=== PATIENT | male | born 1995 | race Caucasian/White ===

== ENCOUNTER 2016-05-25 18:58 | Emergency (ER) | payer SELFPAY ==
[2016-05-25] MEDS ORDERED: SODIUM CHLORIDE 0.9% 1,000 ML IV ONE (19:26)
[2016-05-25] MEDS ORDERED: ACETAMINOPHEN TAB 500 MG TAB PO STA (19:29)
--- NOTE | 2016-05-25 19:29 | ED ---
Nausea/Vomiting/Diarrhea HPI - General Chief complaint: Nausea/Vomiting/Diarrhea Stated complaint: NAUSEA, VOMITING, HEARING LOSS IN RT EAR Time Seen by Provider: 05/25/16 19:17 Source: patient, RN notes reviewed Mode of arrival: ambulatory Limitations: no limitations - History of Present Illness Initial comments: Patient is 21 year old male with complaint of 5 days of feeling ill and weak. Patient reports that he was seen by a doctor on Thursday and was prescribed Tamiflu for his symptoms. Patient reports that since taking the Tamiflu he's feeling felt worse. Patient states that he's had fever and chills as well as one episode of vomiting earlier today. He reports that he has significant sinus congestion and developed a cough. The cough is nonproductive. He denies any other associated symptoms including diarrhea or abdominal pain. He reports that his 2-year-old daughter is coming down with similar symptoms. Also reports decreased hearing in the right ear. Patient denies any recent shortness of breath, chest pain, back pain, abdominal pain, nausea vomiting, numbness or tingling, dysuria or hematuria, constipation or diarrhea, headaches or visual changes, or any other current symptoms - Related Data Home Medications Medication Instructions Recorded Confirmed Oseltamivir [Tamiflu] 75 mg PO Q12HR 05/25/16 05/25/16 Previous Rx's Medication Instructions Recorded Azithromycin [Zithromax Z-pack] 250 mg PO DIRECTED #6 tab 05/25/16 Allergies Allergy/AdvReac Type Severity Reaction Status Date / Time bee pollen Allergy Unknown Verified 05/25/16 19:22 fluoxetine Allergy Swelling Verified 05/25/16 19:22 lamotrigine [From Lamictal] Allergy Swelling Verified 05/25/16 19:22 Review of Systems ROS Statement: Those systems with pertinent positive or pertinent negative responses have been documented in the HPI. ROS Other: All systems not noted in ROS Statement are negative. Past Medical History Past Medical History: Asthma Additional Past Medical History / Comment(s): "heart palpatations" the patient states he has a history of numerous episodes of otitis media in the past History of Any Multi-Drug Resistant Organisms: None Reported Past Surgical History: No Surgical Hx Reported Additional Past Surgical History / Comment(s): "tubes in ears" Past Psychological History: Bipolar, Depression Smoking Status: Current every day smoker Past Alcohol Use History: Occasional Past Drug Use History: None Reported General Exam - General Exam Comments Initial Comments: Patient is a 21-year-old male. He does not appear to be in any acute distress. Limitations: no limitations General appearance: alert, in no apparent distress Head exam: Present: atraumatic, normocephalic, normal inspection Eye exam: Present: normal appearance, PERRL, EOMI. Absent: scleral icterus, conjunctival injection, periorbital swelling ENT exam: Present: normal exam, normal oropharynx, mucous membranes moist. Absent: TM's normal bilaterally (Slightly erythematous right TM) Neck exam: Present: normal inspection. Absent: tenderness, meningismus, lymphadenopathy Respiratory exam: Present: normal lung sounds bilaterally, other (Productive cough). Absent: respiratory distress, wheezes, rales, rhonchi, stridor Cardiovascular Exam: Present: regular rate, normal rhythm, normal heart sounds. Absent: systolic murmur, diastolic murmur, rubs, gallop, clicks GI/Abdominal exam: Present: soft, normal bowel sounds. Absent: distended, tenderness, guarding, rebound, rigid Extremities exam: Present: normal inspection, full ROM, normal capillary refill. Absent: tenderness, pedal edema, joint swelling, calf tenderness Back exam: Present: normal inspection Neurological exam: Present: alert, oriented X3, CN II-XII intact Psychiatric exam: Present: normal affect Skin exam: Present: warm, dry, intact, normal color. Absent: rash Course Vital Signs 05/25/16 05/25/16 19:13 21:10 Temperature 99 F 98 F Pulse Rate 96 70 Respiratory 20 16 Rate Blood Pressure 153/89 120/74 O2 Sat by Pulse 100 100 Oximetry Medical Decision Making - Medical Decision Making Patient is a 21-year-old male chief complaint of one week of feeling weak. He is on Tamiflu for the past 2 days. Since then he is feeling his symptoms progress or worsen. He states he has a productive cough, decreased hearing in the right ear. Patient was given CBC and BMP and both are negative for any acute process. Patient was given 1 L of fluids and Tylenol. Influenza screen is negative. Patient will be discharged with azithromycin instructed to discontinue the Tamiflu as this this was a viral illness this unable to be treated at this far out from the beginning of his illness. Patient will be given a note for work. Patient understands treatment plan will comply. Return parameters were discussed. - Lab Data Result diagrams: 05/25/16 19:40 05/25/16 19:40 Lab Results 05/25/16 05/25/16 05/25/16 Range/Units 19:40 19:40 19:40 WBC 4.9 (3.8-10.6) k/uL RBC 4.80 (4.30-5.90) m/uL Hgb 14.2 (13.0-17.5) gm/dL Hct 42.8 (39.0-53.0) % MCV 89.3 (80.0-100.0) fL MCH 29.6 (25.0-35.0) pg MCHC 33.2 (31.0-37.0) g/dL RDW 12.6 (11.5-15.5) % Plt Count 147 L (150-450) k/uL Neutrophils % 54 % Lymphocytes % 26 % Monocytes % 10 % Eosinophils % 6 % Basophils % 1 % Neutrophils # 2.7 (1.3-7.7) k/uL Lymphocytes # 1.3 (1.0-4.8) k/uL Monocytes # 0.5 (0-1.0) k/uL Eosinophils # 0.3 (0-0.7) k/uL Basophils # 0.0 (0-0.2) k/uL Sodium 141 (137-145) mmol/L Potassium 4.4 (3.5-5.1) mmol/L Chloride 107 (98-107) mmol/L Carbon Dioxide 24 (22-30) mmol/L Anion Gap 10 mmol/L BUN 16 (9-20) mg/dL Creatinine 0.70 (0.66-1.25) mg/dL Est GFR (MDRD) Af Amer >60 (>60 ml/min/1.73 sqM) Est GFR (MDRD) Non-Af >60 (>60 ml/min/1.73 sqM) Glucose 101 H (74-99) mg/dL Calcium 8.8 (8.4-10.2) mg/dL Influenza Type A RNA Not Detected (Not Detectd) Influenza Type B (PCR) Not Detected (Not Detectd) Group A Strep Rapid (Negative) 05/25/16 Range/Units 19:40 WBC (3.8-10.6) k/uL RBC (4.30-5.90) m/uL Hgb (13.0-17.5) gm/dL Hct (39.0-53.0) % MCV (80.0-100.0) fL MCH (25.0-35.0) pg MCHC (31.0-37.0) g/dL RDW (11.5-15.5) % Plt Count (150-450) k/uL Neutrophils % % Lymphocytes % % Monocytes % % Eosinophils % % Basophils % % Neutrophils # (1.3-7.7) k/uL Lymphocytes # (1.0-4.8) k/uL Monocytes # (0-1.0) k/uL Eosinophils # (0-0.7) k/uL Basophils # (0-0.2) k/uL Sodium (137-145) mmol/L Potassium (3.5-5.1) mmol/L Chloride (98-107) mmol/L Carbon Dioxide (22-30) mmol/L Anion Gap mmol/L BUN (9-20) mg/dL Creatinine (0.66-1.25) mg/dL Est GFR (MDRD) Af Amer (>60 ml/min/1.73 sqM) Est GFR (MDRD) Non-Af (>60 ml/min/1.73 sqM) Glucose (74-99) mg/dL Calcium (8.4-10.2) mg/dL Influenza Type A RNA (Not Detectd) Influenza Type B (PCR) (Not Detectd) Group A Strep Rapid Negative (Negative) - Radiology Data Radiology results: report reviewed Chest x-ray shows some central peribronchial cuffing could represent bronchitis or chronic asthma. Disposition Clinical Impression: Bronchitis, Upper respiratory infection Disposition: HOME SELF-CARE Condition: Good Instructions: Acute Bronchitis (ED), Upper Respiratory Infection (ED) Additional Instructions: Advised to rest, remain hydrated and to complete antibiotic prescription. Discontinue Tamiflu. Return to the [facility] if any alarming signs or symptoms occur. Follow-up with primary care provider. Prescriptions: Azithromycin [Zithromax Z-pack] 250 mg PO DIRECTED #6 tab Referrals: None,Stated [Primary Care Provider] - 1-2 days Yumi Sharma MD [REFERRING] - 1-2 days Time of Disposition: 20:31
[2016-05-25 20:01] LABS: Basophils % (A) 1 %; CH 29.6; CHCM 33.2; Eosinophils # (A) 0.3 k/uL (0-0.7); Eosinophils % (A) 6 %; HCT 42.8 % (39.0-53.0); HDW 2.55; HGB 14.2 gm/dL (13.0-17.5); Luc # (Auto) 0.19; Luc % (Auto) 4; Lymphocytes # (A) 1.3 k/uL (1.0-4.8); Lymphocytes % (A) 26 %; MCH 29.6 pg (25.0-35.0); MCHC 33.2 g/dL (31.0-37.0); MCV 89.3 fL (80.0-100.0); Mean Platelet Volume 7.3; Monocytes # (A) 0.5 k/uL (0-1.0); Monocytes % (A) 10 %; Neutrophils # (A) 2.7 k/uL (1.3-7.7); Neutrophils % (A) 54 %; RDW 12.6 % (11.5-15.5); WBC 4.9 k/uL (3.8-10.6); WBC (Perox) 4.93
[2016-05-25 20:13] LABS: Anion Gap 10 mmol/L; Blood Urea Nitrogen 16 mg/dL (9-20); Calcium 8.8 mg/dL (8.4-10.2); Carbon Dioxide 24 mmol/L (22-30); Chloride 107 mmol/L (98-107); Glucose 101 mg/dL (74-99); Non-African American GFR(MDRD) >60 (>60 ml/min/1.73 sqM); Sodium 141 mmol/L (137-145)
--- NOTE | 2016-05-25 20:18 | XR ---
EXAMINATION TYPE: XR chest 2V DATE OF EXAM: 05/25/2016 8:08 PM COMPARISON: 08/05/2015 HISTORY: 21-year-old male with pain, congestion, nausea, and vomiting TECHNIQUE: PA and lateral views FINDINGS: The cardiomediastinal silhouette, aorta, and pulmonary vasculature are within normal limits. There is some central peribronchial cuffing noted. Otherwise, lungs and pleural spaces are clear. IMPRESSION: Some central peribronchial cuffing could represent bronchitis or chronic asthma.
[2016-05-25 20:22] LABS: Potassium 4.4 mmol/L (3.5-5.1)
[2016-05-25] MEDS ORDERED: methylPREDNISolone SOD SUCCI 125 MG/2 ML VIAL IV STA (20:31)
[2016-05-25 21:11] VITALS: BP 120/74; PULSE 70; RESP 16; TEMP 98
== END 2016-05-25 21:10 | disposition home or self-care (01) ==
LOC: EC 18:58
DX: J40 Bronchitis, not specified as acute or chronic (principal); J06.9 Acute upper respiratory infection, unspecified; Z88.8 Allergy status to other drugs, medicaments and biological substances; Z91.030 Bee allergy status; F17.200 Nicotine dependence, unspecified, uncomplicated
CPT/HCPCS: 36415; 80048; 85025; 87081; 87430; 87502; 71020; 96374; 96361; 99284; J2930

== ENCOUNTER 2017-08-21 21:34 | Emergency (ER) | payer SELFPAY ==
[2017-08-21] MEDS ORDERED: MORPHINE SULFATE 4 MG/ML SYRINGE IM STA (22:36)
--- NOTE | 2017-08-21 22:45 | ED ---
General Adult HPI - General Chief complaint: Recheck/Abnormal Lab/Rx Stated complaint: Headache, sore throat Time Seen by Provider: 08/21/17 21:56 Source: patient, RN notes reviewed Mode of arrival: ambulatory Limitations: no limitations - History of Present Illness Initial comments: Chief complaint history of present illness a 22-year-old male here with complaint of dental pain. The patient was to the dentist today. They said they wouldn't deal with him until after the patient's been on antibiotic. He went to an urgent care head antibiotics prescribedand Augmentin. Patient reports she has pain to the left upper jaw and the fifth 1415-16 tooth area. No signs of abscess along the gumline. All these teeth have previously been filled. Patient was placed on ibuprofen which is not helping with the pain. - Related Data Home Medications Medication Instructions Recorded Confirmed Amoxicillin/Potassium Clav 1 tab PO TID 08/21/17 08/21/17 [Augmentin 500-125 Tablet] Fluticasone Nasal [place] [Flonase 1 spray EA NOSTRIL DAILY PRN 08/21/17 08/21/17 Nasal [place]] Guaifen/Phenyleph/Acetaminophn 1 tab PO Q8H PRN 08/21/17 08/21/17 [Tylenol Sinus Severe [place]] Ibuprofen [Motrin] 800 mg PO Q8H PRN 08/21/17 08/21/17 Previous Rx's Medication Instructions Recorded Hydrocodone/Acetaminophen [[place] 1 each PO Q6HR PRN #10 tab 08/21/17 5-325] Allergies Allergy/AdvReac Type Severity Reaction Status Date / Time bee pollen Allergy Unknown Verified 08/21/17 21:53 fluoxetine Allergy Swelling Verified 08/21/17 21:53 lamotrigine [From Lamictal] Allergy Swelling Verified 08/21/17 21:53 Review of Systems ROS Statement: Those systems with pertinent positive or pertinent negative responses have been documented in the HPI. Review of systems no other complaints other than dental pain going up into the left maxillary region. Also left ear pain. No headache no stiff neck. No fever. No chest pain shortness of breath no other complaints. Past medical problems asthma, heart palpitations. Surgeries include ear tubes only. Family history leukemia. ALLERGIES to bee pollen, fluoxetine and Motrin seen. ROS Other: All systems not noted in ROS Statement are negative. Past Medical History Past Medical History: Asthma Additional Past Medical History / Comment(s): "heart palpatations" the patient states he has a history of numerous episodes of otitis media in the past History of Any Multi-Drug Resistant Organisms: None Reported Past Surgical History: No Surgical Hx Reported Additional Past Surgical History / Comment(s): "tubes in ears" Past Psychological History: Bipolar, Depression Smoking Status: Current every day smoker Past Alcohol Use History: Occasional Past Drug Use History: None Reported General Exam - General Exam Comments Initial Comments: General: The patient is awake and alert, mild to moderate distress because of pain to his left posterior jaw area. Vital signs temperature 98.1 pulse 11 respiratory rate 18 pulse ox on percent room air blood pressure 144/85 Eye: Pupils are equal, round and reactive to light, extra-ocular movements are intact ; there is normal conjunctiva bilaterally. No signs of icterus. Ears, nose, mouth and throat: There are moist mucous membranes and no oral lesions. Patient has dental pain to the teeth numbers 1415 and 16 area. No abscess noted along the gingival line. Neck: The neck is supple, no anterior cervical lymphadenopathy. Cardiovascular: There is a regular rate and rhythm. No murmur, rub or gallop is appreciated. Respiratory: Lungs are clear to auscultation, respirations are non-labored, breath sounds are equal. No wheezes, stridor, rales, or rhonchi. Gastrointestinal: Soft, non-distended, non-tender abdomen without masses or organomegaly noted. There is no rebound or guarding present. No CVA tenderness. Bowel sounds are unremarkable. Back: No back pain Musculoskeletal: Full range of upper and lower extremities. Limitations: no limitations Course Vital Signs 08/21/17 21:43 Temperature 98.1 F Pulse Rate 101 H Respiratory 18 Rate Blood Pressure 144/85 O2 Sat by Pulse 100 Oximetry Medical Decision Making - Medical Decision Making Medical decision making; 21-year-old male to complaint of dental pain. He was placed on Augmentin for treatment but is not to be elicited dentist until the antibiotics taken hold. Patient was prescribed only ibuprofen but he states this is not controlling the pain. On emergency room patient received a shot of morphine 2 mg IM. To be given a prescription of [place] to be taken for the first several days until the antibiotics help decrease inflammation. Advised to call and follow back up with dentist. Disposition Clinical Impression: Pain, dental Disposition: HOME SELF-CARE Condition: Fair Instructions: Toothache (ED) Additional Instructions: Apply topical anesthetic, [id number] as described in directed. Take Augmentin as directed and completed. Use [place] for the management for breakthrough after using ibuprofen. Follow-up with dentist Prescriptions: Hydrocodone/Acetaminophen [[place] 5-325] 1 each PO Q6HR PRN #10 tab PRN Reason: Pain Is patient prescribed a controlled substance at d/c from ED?: Yes If prescribed controlled substance>3 days was MAPS reviewed?: No When asked, does pt state using other controlled substances?: No Referrals: None,Stated [Primary Care Provider] - 1-2 days Time of Disposition: 22:45
[2017-08-21 22:53] VITALS: BP 133/75; PULSE 85; RESP 16; TEMP 98.2
== END 2017-08-21 22:58 | disposition home or self-care (01) ==
LOC: EC 21:34
DX: K08.89 Other specified disorders of teeth and supporting structures (principal); R51 Headache; R68.84 Jaw pain; F17.200 Nicotine dependence, unspecified, uncomplicated; Z91.030 Bee allergy status; Z88.8 Allergy status to other drugs, medicaments and biological substances
CPT/HCPCS: 99283; 96372; J2270

== ENCOUNTER 2017-08-24 10:09 | Emergency (ER) | payer OTHER ==
[2017-08-24 10:19] VITALS: RESP 18
[2017-08-24] MEDS ORDERED: SODIUM CHLORIDE 0.9% 1,000 ML IV STA (10:47)
[2017-08-24 11:11] LABS: Appearance,Urine Clear (Clear); Bilirubin,Urine Negative (Negative); Blood,Urine Negative (Negative); Color,Urine Light Yellow; Glucose,Urine (UA) Negative (Negative); Ketones,Urine Negative (Negative); Leukocyte Esterase,Urine Negative (Negative); Nitrite,Urine Negative (Negative); Protein,Urine Negative (Negative); Specific Gravity,Urine 1.004 (1.001-1.035); Urobilinogen,Urine <2.0 mg/dL (<2.0)
[2017-08-24 11:13] LABS: Basophils % (A) 0 %; Eosinophils # (A) 0.3 k/uL (0-0.7); Eosinophils % (A) 6 %; HCT 47.2 % (39.0-53.0); HGB 16.2 gm/dL (13.0-17.5); Lymphocytes # (A) 1.5 k/uL (1.0-4.8); Lymphocytes % (A) 28 %; MCH 28.8 pg (25.0-35.0); MCHC 34.4 g/dL (31.0-37.0); MCV 83.7 fL (80.0-100.0); Monocytes # (A) 0.3 k/uL (0-1.0); Monocytes % (A) 6 %; Neutrophils % (A) 58 %; Platelet Count 247 k/uL (150-450); RBC 5.64 m/uL (4.30-5.90); RDW 12.3 % (11.5-15.5); WBC 5.2 k/uL (3.8-10.6)
[2017-08-24 11:24] LABS: ALT 28 U/L (21-72); AST 24 U/L (17-59); Acetaminophen <10.0 ug/mL; Albumin 5.1 g/dL (3.5-5.0); Alcohol <10 mg/dL; Alkaline Phosphatase 82 U/L (38-126); Anion Gap 15 mmol/L; Blood Urea Nitrogen 11 mg/dL (9-20); Calcium 9.9 mg/dL (8.4-10.2); Carbon Dioxide 30 mmol/L (22-30); Chloride 100 mmol/L (98-107); Glucose 84 mg/dL (74-99); Lipase 225 U/L (23-300); Magnesium 1.8 mg/dL (1.6-2.3); Phosphorus 3.1 mg/dL (2.5-4.5); Salicylate <1.0 mg/dL; Sodium 145 mmol/L (137-145); Total Bilirubin 0.6 mg/dL (0.2-1.3); Total Protein 7.7 g/dL (6.3-8.2)
[2017-08-24 11:28] LABS: Amphetamine Screen,Urine Not Detected (NotDetected); Barbiturate Screen,Urine Not Detected (NotDetected); Benzodiazepines Screen,Urine Not Detected (NotDetected); Cocaine Screen,Urine Not Detected (NotDetected); Methadone Screen, Urine Not Detected (NotDetected); Opiate Screen,Urine Detected (NotDetected); Oxycodone Screen, Urine Not Detected (NotDetected); Phencyclidine Screen,Urine Not Detected (NotDetected); Tricyclic Antidepressant,Urine Not Detected (NotDetected); Urn Cannabinoid Scrn Not Detected (NotDetected)
--- NOTE | 2017-08-24 11:38 | ED ---
General Adult HPI - General Chief complaint: Recheck/Abnormal Lab/Rx Stated complaint: Weakness Time Seen by Provider: 08/24/17 10:29 Source: patient, RN notes reviewed, old records reviewed Mode of arrival: ambulatory Limitations: no limitations - History of Present Illness Initial comments: This is a 22-year-old male to the ER for evaluation. This patient is here today for evaluation regards to not feeling well weak lethargic. Recent been doing with dental abscess and tooth abscess. Patient has no significant medical history, does admit to 3 days of decreased appetite and anorexia, no nausea vomiting diarrhea or fevers. He is taking [place] and Augmentin for tooth infection. Denies taking any other drugs or alcohol - Related Data Home Medications Medication Instructions Recorded Confirmed Amoxicillin/Potassium Clav 1 tab PO TID 08/21/17 08/24/17 [Augmentin 500-125 Tablet] Hydrocodone/Acetaminophen [[place] 1 tab PO TID PRN 08/24/17 08/24/17 5-325] Allergies Allergy/AdvReac Type Severity Reaction Status Date / Time bee pollen Allergy Unknown Verified 08/24/17 10:25 fluoxetine Allergy Swelling Verified 08/24/17 10:25 lamotrigine [From Lamictal] Allergy Swelling Verified 08/24/17 10:25 latex Allergy Unknown Verified 08/24/17 10:25 Review of Systems ROS Statement: Those systems with pertinent positive or pertinent negative responses have been documented in the HPI. ROS Other: All systems not noted in ROS Statement are negative. Past Medical History Past Medical History: Asthma Additional Past Medical History / Comment(s): "heart palpatations" the patient states he has a history of numerous episodes of otitis media in the past History of Any Multi-Drug Resistant Organisms: None Reported Past Surgical History: No Surgical Hx Reported Additional Past Surgical History / Comment(s): "tubes in ears" Past Psychological History: Bipolar, Depression Smoking Status: Current every day smoker Past Alcohol Use History: Occasional Past Drug Use History: None Reported General Exam Limitations: no limitations General appearance: alert, in no apparent distress, cachectic Head exam: Present: atraumatic, normocephalic, normal inspection Eye exam: Present: normal appearance, PERRL, EOMI. Absent: scleral icterus, conjunctival injection, periorbital swelling ENT exam: Present: normal exam, mucous membranes moist Neck exam: Present: normal inspection. Absent: tenderness, meningismus, lymphadenopathy Respiratory exam: Present: normal lung sounds bilaterally. Absent: respiratory distress, wheezes, rales, rhonchi, stridor Cardiovascular Exam: Present: regular rate, normal rhythm, normal heart sounds. Absent: systolic murmur, diastolic murmur, rubs, gallop, clicks GI/Abdominal exam: Present: soft, normal bowel sounds. Absent: distended, tenderness, guarding, rebound, rigid Extremities exam: Present: normal inspection, full ROM, normal capillary refill. Absent: tenderness, pedal edema, joint swelling, calf tenderness Back exam: Present: normal inspection Neurological exam: Present: alert, oriented X3, CN II-XII intact Psychiatric exam: Present: normal affect, normal mood Skin exam: Present: warm, dry, intact, normal color. Absent: rash Course Vital Signs 08/24/17 08/24/17 10:16 12:06 Temperature 98.2 F 98.6 F Pulse Rate 74 82 Respiratory 18 18 Rate Blood Pressure 136/98 120/73 O2 Sat by Pulse 98 100 Oximetry EKG Findings - EKG Comments: EKG Findings:: EKG shows normal sinus rhythm rate of 67, TN 154, QRS 106, QTc 414 Medical Decision Making - Medical Decision Making 19 female the ER for evaluation, patient presenting with fatigue, tiredness, anhedonia. Patient will be taken off [place] medication is currently taking. Discharged - Lab Data Result diagrams: 08/24/17 11:05 08/24/17 11:05 Lab Results 08/24/17 08/24/17 08/24/17 Range/Units 11:05 11:05 11:05 WBC 5.2 (3.8-10.6) k/uL RBC 5.64 (4.30-5.90) m/uL Hgb 16.2 (13.0-17.5) gm/dL Hct 47.2 (39.0-53.0) % MCV 83.7 (80.0-100.0) fL MCH 28.8 (25.0-35.0) pg MCHC 34.4 (31.0-37.0) g/dL RDW 12.3 (11.5-15.5) % Plt Count 247 (150-450) k/uL Neutrophils % 58 % Lymphocytes % 28 % Monocytes % 6 % Eosinophils % 6 % Basophils % 0 % Neutrophils # 3.0 (1.3-7.7) k/uL Lymphocytes # 1.5 (1.0-4.8) k/uL Monocytes # 0.3 (0-1.0) k/uL Eosinophils # 0.3 (0-0.7) k/uL Basophils # 0.0 (0-0.2) k/uL PT (9.0-12.0) sec INR (<1.2) APTT (22.0-30.0) sec Sodium 145 (137-145) mmol/L Potassium 4.0 (3.5-5.1) mmol/L Chloride 100 (98-107) mmol/L Carbon Dioxide 30 (22-30) mmol/L Anion Gap 15 mmol/L BUN 11 (9-20) mg/dL Creatinine 0.68 (0.66-1.25) mg/dL Est GFR (CKD-EPI)AfAm >90 (>60 ml/min/1.73 sqM) Est GFR (CKD-EPI)NonAf >90 (>60 ml/min/1.73 sqM) Glucose 84 (74-99) mg/dL Calcium 9.9 (8.4-10.2) mg/dL Phosphorus 3.1 (2.5-4.5) mg/dL Magnesium 1.8 (1.6-2.3) mg/dL Total Bilirubin 0.6 (0.2-1.3) mg/dL AST 24 (17-59) U/L ALT 28 (21-72) U/L Alkaline Phosphatase 82 (38-126) U/L Total Creatine Kinase 71 (55-170) U/L CK-MB (CK-2) 0.5 (0.0-2.4) ng/mL CK-MB (CK-2) Rel Index 0.7 Troponin I <0.012 (0.000-0.034) ng/mL Total Protein 7.7 (6.3-8.2) g/dL Albumin 5.1 H (3.5-5.0) g/dL Lipase 225 (23-300) U/L TSH 1.450 (0.465-4.680) mIU/L Urine Color Urine Appearance (Clear) Urine pH (5.0-8.0) Ur Specific [place] (1.001-1.035) Urine Protein (Negative) Urine Glucose (UA) (Negative) Urine Ketones (Negative) Urine Blood (Negative) Urine Nitrite (Negative) Urine Bilirubin (Negative) Urine Urobilinogen (<2.0) mg/dL Ur Leukocyte Esterase (Negative) Salicylates <1.0 mg/dL Urine Opiates Screen (NotDetected) Ur Oxycodone Screen (NotDetected) Urine Methadone Screen (NotDetected) Ur Propoxyphene Screen (NotDetected) Acetaminophen <10.0 ug/mL Ur Barbiturates Screen (NotDetected) U Tricyclic Antidepress (NotDetected) Ur Phencyclidine Scrn (NotDetected) Ur Amphetamines Screen (NotDetected) U Methamphetamines Scrn (NotDetected) U Benzodiazepines Scrn (NotDetected) Urine Cocaine Screen (NotDetected) U Marijuana (THC) Screen (NotDetected) Serum Alcohol <10 mg/dL Heterophile Antibody (Negative) 08/24/17 08/24/17 08/24/17 Range/Units 11:05 11:05 11:05 WBC (3.8-10.6) k/uL RBC (4.30-5.90) m/uL Hgb (13.0-17.5) gm/dL Hct (39.0-53.0) % MCV (80.0-100.0) fL MCH (25.0-35.0) pg MCHC (31.0-37.0) g/dL RDW (11.5-15.5) % Plt Count (150-450) k/uL Neutrophils % % Lymphocytes % % Monocytes % % Eosinophils % % Basophils % % Neutrophils # (1.3-7.7) k/uL Lymphocytes # (1.0-4.8) k/uL Monocytes # (0-1.0) k/uL Eosinophils # (0-0.7) k/uL Basophils # (0-0.2) k/uL PT 10.0 (9.0-12.0) sec INR 1.0 (<1.2) APTT 25.5 (22.0-30.0) sec Sodium (137-145) mmol/L Potassium (3.5-5.1) mmol/L Chloride (98-107) mmol/L Carbon Dioxide (22-30) mmol/L Anion Gap mmol/L BUN (9-20) mg/dL Creatinine (0.66-1.25) mg/dL Est GFR (CKD-EPI)AfAm (>60 ml/min/1.73 sqM) Est GFR (CKD-EPI)NonAf (>60 ml/min/1.73 sqM) Glucose (74-99) mg/dL Calcium (8.4-10.2) mg/dL Phosphorus (2.5-4.5) mg/dL Magnesium (1.6-2.3) mg/dL Total Bilirubin (0.2-1.3) mg/dL AST (17-59) U/L ALT (21-72) U/L Alkaline Phosphatase (38-126) U/L Total Creatine Kinase (55-170) U/L CK-MB (CK-2) (0.0-2.4) ng/mL CK-MB (CK-2) Rel Index Troponin I (0.000-0.034) ng/mL Total Protein (6.3-8.2) g/dL Albumin (3.5-5.0) g/dL Lipase (23-300) U/L TSH (0.465-4.680) mIU/L Urine Color Light Yellow Urine Appearance Clear (Clear) Urine pH 7.0 (5.0-8.0) Ur Specific [place] 1.004 (1.001-1.035) Urine Protein Negative (Negative) Urine Glucose (UA) Negative (Negative) Urine Ketones Negative (Negative) Urine Blood Negative (Negative) Urine Nitrite Negative (Negative) Urine Bilirubin Negative (Negative) Urine Urobilinogen <2.0 (<2.0) mg/dL Ur Leukocyte Esterase Negative (Negative) Salicylates mg/dL Urine Opiates Screen Detected H (NotDetected) Ur Oxycodone Screen Not Detected (NotDetected) Urine Methadone Screen Not Detected (NotDetected) Ur Propoxyphene Screen Not Detected (NotDetected) Acetaminophen ug/mL Ur Barbiturates Screen Not Detected (NotDetected) U Tricyclic Antidepress Not Detected (NotDetected) Ur Phencyclidine Scrn Not Detected (NotDetected) Ur Amphetamines Screen Not Detected (NotDetected) U Methamphetamines Scrn Not Detected (NotDetected) U Benzodiazepines Scrn Not Detected (NotDetected) Urine Cocaine Screen Not Detected (NotDetected) U Marijuana (THC) Screen Not Detected (NotDetected) Serum Alcohol mg/dL Heterophile Antibody Negative (Negative) Disposition Clinical Impression: Pain, dental, Weakness, Fatigue Disposition: HOME SELF-CARE Condition: Good Instructions: Fatigue (ED), Weakness (ED) Is patient prescribed a controlled substance at d/c from ED?: No Referrals: None,Stated [Primary Care Provider] - 1-2 days
[2017-08-24 11:42] LABS: Partial Thromboplastin Time 25.5 sec (22.0-30.0)
[2017-08-24 11:47] LABS: Creatine Kinase 71 U/L (55-170)
[2017-08-24 11:59] LABS: Creatine Kinase MB 0.5 ng/mL (0.0-2.4); Troponin I <0.012 ng/mL (0.000-0.034)
[2017-08-24] MEDS ORDERED: NALOXONE 0.4 MG/ML 10 ML VIAL IVP STA (13:04)
[2017-08-24 14:07] VITALS: BP 110/87; PULSE 87; TEMP 98.4
== END 2017-08-24 14:07 | disposition home or self-care (01) ==
LOC: EC 10:09
DX: R53.1 Weakness (principal); R53.83 Other fatigue; K08.89 Other specified disorders of teeth and supporting structures; F17.200 Nicotine dependence, unspecified, uncomplicated; Z91.030 Bee allergy status; Z88.8 Allergy status to other drugs, medicaments and biological substances; Z91.040 Latex allergy status
CPT/HCPCS: 36415; 93005; 80053; 82550; 82553; 83690; 83735; 84100; 84443; 84484; 85025; 85610; 85730; 86308; 81003; 80306; 83520 ×2; 80320; 87086; 99285; 96374; 96361; J2310

== ENCOUNTER 2017-09-10 11:27 | Emergency (ER) | payer OTHER ==
[2017-09-10] MEDS ORDERED: RX INFO: IV CONTRAST WAS GIVEN 1 EACH MISC MISCELLANE PRN (11:41)
--- NOTE | 2017-09-10 11:47 | ED ---
General Adult HPI - General Stated complaint: Syncope Time Seen by Provider: 09/10/17 11:30 Source: RN notes reviewed - History of Present Illness Initial comments: This is a 22-year-old male who presents emergency Department because of some hematuria. Patient states she got out of the shower he felt something dripping on his foot he looked down there was bright red blood dripping on his foot this made him lightheaded and he went to sit down he missed the stool and fell to the ground. Patient states she was never out completely but just very lightheaded. Patient denies any recent sexual activity patient denies any instrumentation. Patient denies any history of similar. Patient denies any trauma or injury. Patient denies any abdominal pain. Patient states when the blood was coming out there was a little stinging sensation but no real pain. Patient denies any fevers chills. Patient denies any chest pain difficulty breathing shortness of breath. Patient denies palpitations. Patient states currently has no complaints other than his penis is still wheezing a little bit of blood - Related Data Home Medications Medication Instructions Recorded Confirmed Ibuprofen [Advil] 400 mg PO Q6HR PRN 09/10/17 09/10/17 Allergies Allergy/AdvReac Type Severity Reaction Status Date / Time acetaminophen [From [place]] Allergy Rash/Hives Verified 09/10/17 11:48 bee pollen Allergy Unknown Verified 09/10/17 11:48 fluoxetine Allergy Anaphylaxis Verified 09/10/17 11:48 hydrocodone [From [place]] Allergy Rash/Hives Verified 09/10/17 11:48 lamotrigine [From Lamictal] Allergy Anaphylaxis Verified 09/10/17 11:48 latex Allergy Unknown Verified 09/10/17 11:48 Review of Systems ROS Statement: Those systems with pertinent positive or pertinent negative responses have been documented in the HPI. ROS Other: All systems not noted in ROS Statement are negative. Past Medical History Past Medical History: Asthma Additional Past Medical History / Comment(s): "heart palpatations" the patient states he has a history of numerous episodes of otitis media in the past History of Any Multi-Drug Resistant Organisms: None Reported Past Surgical History: No Surgical Hx Reported Additional Past Surgical History / Comment(s): "tubes in ears" Past Psychological History: Bipolar, Depression Smoking Status: Current every day smoker Past Alcohol Use History: Occasional Past Drug Use History: None Reported General Exam - General Exam Comments Initial Comments: GENERAL: Patient is well-developed and well-nourished. Patient is nontoxic and well- hydrated and is in no acute distress. ENT: Neck is soft and supple. No significant lymphadenopathy is noted. Oropharynx is clear. Moist mucous membranes. Neck has full range of motion without eliciting any pain. EYES: The sclera were anicteric and conjunctiva were pink and moist. Extraocular movements were intact and pupils were equal round and reactive to light. Eyelids were unremarkable. PULMONARY: Unlabored respirations. Good breath sounds bilaterally. No audible rales rhonchi or wheezing was noted. CARDIOVASCULAR: There is a regular rate and rhythm without any murmurs gallops or rubs. ABDOMEN: Soft and nontender with normal bowel sounds. GENITALIA Patient's penis looks normal aside from slight amount of blood at the orifice. SKIN: Skin is clear with no lesions or rashes and otherwise unremarkable. NEUROLOGIC: Patient is alert and oriented x3. Cranial nerves II through XII are grossly intact. Motor and sensory are also intact. Normal speech, volume and content. Symmetrical smile. MUSCULOSKELETAL: Normal extremities with adequate strength and full range of motion. No lower extremity swelling or edema. No calf tenderness. LYMPHATICS: No significant lymphadenopathy is noted PSYCHIATRIC: Normal psychiatric evaluation. Normal interpersonal interactions appears functionally intact in deals appropriately with others. No signs of depression. No signs of anxiety. Course Vital Signs 09/10/17 11:44 Temperature 97.0 F L Pulse Rate 63 Respiratory 18 Rate Blood Pressure 141/82 O2 Sat by Pulse 98 Oximetry Medical Decision Making - Medical Decision Making EKG shows normal sinus rhythm at 63 bpm NC interval is 140 QRS is 92 QT interval 382 QTC is 390. Patient's EKG shows no ST segment elevation or depression or T wave abnormalities are noted CAT scan showed no acute abnormality which would explain hematuria. Patient is asymptomatic except he still has a little bit of blood in his urine. - Lab Data Result diagrams: 09/10/17 11:57 09/10/17 11:57 Lab Results 09/10/17 09/10/17 09/10/17 Range/Units 11:57 11:57 11:57 WBC 5.2 (3.8-10.6) k/uL RBC 5.49 (4.30-5.90) m/uL Hgb 16.2 (13.0-17.5) gm/dL Hct 46.6 (39.0-53.0) % MCV 84.9 (80.0-100.0) fL MCH 29.5 (25.0-35.0) pg MCHC 34.7 (31.0-37.0) g/dL RDW 12.6 (11.5-15.5) % Plt Count 231 (150-450) k/uL Neutrophils % 59 % Lymphocytes % 29 % Monocytes % 5 % Eosinophils % 5 % Basophils % 0 % Neutrophils # 3.1 (1.3-7.7) k/uL Lymphocytes # 1.5 (1.0-4.8) k/uL Monocytes # 0.2 (0-1.0) k/uL Eosinophils # 0.3 (0-0.7) k/uL Basophils # 0.0 (0-0.2) k/uL PT 10.6 (9.0-12.0) sec INR 1.1 (<1.2) APTT 24.9 (22.0-30.0) sec Sodium 144 (137-145) mmol/L Potassium 4.3 (3.5-5.1) mmol/L Chloride 103 (98-107) mmol/L Carbon Dioxide 25 (22-30) mmol/L Anion Gap 16 mmol/L BUN 15 (9-20) mg/dL Creatinine 0.68 (0.66-1.25) mg/dL Est GFR (CKD-EPI)AfAm >90 (>60 ml/min/1.73 sqM) Est GFR (CKD-EPI)NonAf >90 (>60 ml/min/1.73 sqM) Glucose 81 (74-99) mg/dL Calcium 9.8 (8.4-10.2) mg/dL Total Bilirubin 0.6 (0.2-1.3) mg/dL AST 28 (17-59) U/L ALT 31 (21-72) U/L Alkaline Phosphatase 76 (38-126) U/L Total Protein 7.4 (6.3-8.2) g/dL Albumin 4.8 (3.5-5.0) g/dL Urine Color Urine Appearance (Clear) Urine pH (5.0-8.0) Ur Specific [place] (1.001-1.035) Urine Protein (Negative) Urine Glucose (UA) (Negative) Urine Ketones (Negative) Urine Blood (Negative) Urine Nitrite (Negative) Urine Bilirubin (Negative) Urine Urobilinogen (<2.0) mg/dL Ur Leukocyte Esterase (Negative) Urine RBC (0-5) /hpf Amorphous Sediment (None) /hpf Urine Bacteria (None) /hpf Urine Mucus (None) /hpf 09/10/17 Range/Units 11:57 WBC (3.8-10.6) k/uL RBC (4.30-5.90) m/uL Hgb (13.0-17.5) gm/dL Hct (39.0-53.0) % MCV (80.0-100.0) fL MCH (25.0-35.0) pg MCHC (31.0-37.0) g/dL RDW (11.5-15.5) % Plt Count (150-450) k/uL Neutrophils % % Lymphocytes % % Monocytes % % Eosinophils % % Basophils % % Neutrophils # (1.3-7.7) k/uL Lymphocytes # (1.0-4.8) k/uL Monocytes # (0-1.0) k/uL Eosinophils # (0-0.7) k/uL Basophils # (0-0.2) k/uL PT (9.0-12.0) sec INR (<1.2) APTT (22.0-30.0) sec Sodium (137-145) mmol/L Potassium (3.5-5.1) mmol/L Chloride (98-107) mmol/L Carbon Dioxide (22-30) mmol/L Anion Gap mmol/L BUN (9-20) mg/dL Creatinine (0.66-1.25) mg/dL Est GFR (CKD-EPI)AfAm (>60 ml/min/1.73 sqM) Est GFR (CKD-EPI)NonAf (>60 ml/min/1.73 sqM) Glucose (74-99) mg/dL Calcium (8.4-10.2) mg/dL Total Bilirubin (0.2-1.3) mg/dL AST (17-59) U/L ALT (21-72) U/L Alkaline Phosphatase (38-126) U/L Total Protein (6.3-8.2) g/dL Albumin (3.5-5.0) g/dL Urine Color Light Yellow Urine Appearance Cloudy (Clear) Urine pH 7.5 (5.0-8.0) Ur Specific [place] 1.012 (1.001-1.035) Urine Protein Negative (Negative) Urine Glucose (UA) Negative (Negative) Urine Ketones Negative (Negative) Urine Blood Moderate H (Negative) Urine Nitrite Negative (Negative) Urine Bilirubin Negative (Negative) Urine Urobilinogen <2.0 (<2.0) mg/dL Ur Leukocyte Esterase Negative (Negative) Urine RBC 48 H (0-5) /hpf Amorphous Sediment Few H (None) /hpf Urine Bacteria Rare H (None) /hpf Urine Mucus Rare H (None) /hpf Disposition Clinical Impression: Hematuria Disposition: HOME SELF-CARE Condition: Good Instructions: Hematuria (ED) Is patient prescribed a controlled substance at d/c from ED?: No Referrals: None,Stated [Primary Care Provider] - 1-2 days Erasto Hutchins MD [STAFF PHYSICIAN] - 1-2 days Time of Disposition: 13:06
[2017-09-10 12:11] LABS: Basophils % (A) 0 %; Eosinophils # (A) 0.3 k/uL (0-0.7); Eosinophils % (A) 5 %; HCT 46.6 % (39.0-53.0); HGB 16.2 gm/dL (13.0-17.5); Lymphocytes # (A) 1.5 k/uL (1.0-4.8); Lymphocytes % (A) 29 %; MCH 29.5 pg (25.0-35.0); MCHC 34.7 g/dL (31.0-37.0); MCV 84.9 fL (80.0-100.0); Mean Platelet Volume 7.1; Monocytes # (A) 0.2 k/uL (0-1.0); Monocytes % (A) 5 %; Neutrophils # (A) 3.1 k/uL (1.3-7.7); Neutrophils % (A) 59 %; Platelet Count 231 k/uL (150-450); RBC 5.49 m/uL (4.30-5.90); RDW 12.6 % (11.5-15.5); WBC 5.2 k/uL (3.8-10.6)
[2017-09-10 12:17] LABS: Amorphous Sediment,Urine Few /hpf; Appearance,Urine Cloudy (Clear); Bacteria,Urine Rare /hpf; Bilirubin,Urine Negative (Negative); Blood,Urine Moderate (Negative); Color,Urine Light Yellow; Glucose,Urine (UA) Negative (Negative); Ketones,Urine Negative (Negative); Leukocyte Esterase,Urine Negative (Negative); Mucus,Urine Rare /hpf; Nitrite,Urine Negative (Negative); PH, Urine 7.5 (5.0-8.0); Protein,Urine Negative (Negative); RBC,Urine 48 /hpf (0-5); Specific Gravity,Urine 1.012 (1.001-1.035); Urobilinogen,Urine <2.0 mg/dL (<2.0)
[2017-09-10 12:39] LABS: ALT 31 U/L (21-72); AST 28 U/L (17-59); Albumin 4.8 g/dL (3.5-5.0); Alkaline Phosphatase 76 U/L (38-126); Anion Gap 16 mmol/L; Blood Urea Nitrogen 15 mg/dL (9-20); Calcium 9.8 mg/dL (8.4-10.2); Carbon Dioxide 25 mmol/L (22-30); Chloride 103 mmol/L (98-107); Glucose 81 mg/dL (74-99); Sodium 144 mmol/L (137-145); Total Bilirubin 0.6 mg/dL (0.2-1.3); Total Protein 7.4 g/dL (6.3-8.2)
--- NOTE | 2017-09-10 12:39 | CT ---
EXAMINATION TYPE: CT abdomen pelvis w con DATE OF EXAM: 09/10/2017 COMPARISON: NONE HISTORY: Patient complains of episode of uncontrolled gross hematuria. CT DLP: 730 mGycm CONTRAST: CT scan of the abdomen and pelvis is performed without Oral Contrast and with IV Contrast, patient in jected with 100 mL of Isovue 300. FINDINGS: LUNG BASES-: No visible nodule. No infiltrate. LIVER/GB: No calcified gallstones. No space occupying hepatic lesion. Biliary tree is of normal ca liber. PANCREAS: No inflammation. No distinct mass. SPLEEN: No splenic enlargement. No lesion seen. ADRENALS: No nodule. No thickening. KIDNEYS/BLADDER: Incidental horseshoe kidney. No hydronephrosis. No nephrolithiasis. No distinct re nal mass. Urinary bladder grossly unremarkable. BOWEL: Normal appendix. Normal bowel caliber. No inflammation. GENITAL ORGANS: No gross abnormality. LYMPH NODES: No greater than 1cm abdominal or pelvic lymph nodes are appreciated. AORTA: No significant abnormality. OSSEOUS STRUCTURES: No significant abnormality is seen. OTHER: No significant additional abnormality is seen. IMPRESSION: 1. Horseshoe kidney. Otherwise unremarkable study.
[2017-09-10 12:40] LABS: Potassium 4.3 mmol/L (3.5-5.1)
[2017-09-10 13:04] LABS: INR 1.1 (<1.2); Partial Thromboplastin Time 24.9 sec (22.0-30.0); Prothrombin Time 10.6 sec (9.0-12.0)
[2017-09-10 13:19] VITALS: BP 116/80
[2017-09-10 13:57] VITALS: PULSE 68; RESP 18; TEMP 98.1
== END 2017-09-10 13:53 | disposition home or self-care (01) ==
LOC: EC 11:27
DX: R31.9 Hematuria, unspecified (principal); R55 Syncope and collapse; F17.200 Nicotine dependence, unspecified, uncomplicated; Z88.5 Allergy status to narcotic agent; Z88.8 Allergy status to other drugs, medicaments and biological substances; Z91.030 Bee allergy status; Z91.040 Latex allergy status
CPT/HCPCS: 36415; 93005; 80053; 85025; 85610; 85730; 81001; 74177; 99285; Q9967

== ENCOUNTER 2018-03-20 11:28 | Emergency (ER) | payer OTHER ==
[2018-03-20] MEDS ORDERED: IPRATROPIUM-ALBUTEROL 3 ML NEB INHALATION STA (11:52)
--- NOTE | 2018-03-20 12:31 | ED ---
URI HPI - General Chief Complaint: Upper Respiratory Infection Stated Complaint: Asthma, Diff Breathing Time Seen by Provider: 03/20/18 11:44 Source: patient, RN notes reviewed Mode of arrival: ambulatory Limitations: no limitations - History of Present Illness Initial Comments: 23-year-old male presents emergency Department with chief complaint of cough congestion shortness of breath. Patient states he woke up symptoms. Does have a history of asthma states that his inhaler is and did not want to use it. He is a nonsmoker. Denies any nasal congestion, sore throat and ear pain, headache or dizziness. - Related Data Home Medications Medication Instructions Recorded Confirmed Ibuprofen [Advil] 400 mg PO Q6HR PRN 09/10/17 09/10/17 Previous Rx's Medication Instructions Recorded Albuterol Sulfate [Proair Hfa] 1 - 2 puff INHALATION Q4HR PRN #1 03/20/18 inhaler predniSONE 50 mg PO DAILY #5 tab 03/20/18 Allergies Allergy/AdvReac Type Severity Reaction Status Date / Time acetaminophen [From [place]] Allergy Rash/Hives Verified 03/20/18 11:32 bee pollen Allergy Unknown Verified 03/20/18 11:32 fluoxetine Allergy Anaphylaxis Verified 03/20/18 11:32 hydrocodone [From [place]] Allergy Rash/Hives Verified 03/20/18 11:32 lamotrigine [From Lamictal] Allergy Anaphylaxis Verified 03/20/18 11:32 latex Allergy Unknown Verified 03/20/18 11:32 Review of Systems ROS Statement: Those systems with pertinent positive or pertinent negative responses have been documented in the HPI. ROS Other: All systems not noted in ROS Statement are negative. Past Medical History Past Medical History: Asthma Additional Past Medical History / Comment(s): "heart palpatations" the patient states he has a history of numerous episodes of otitis media in the past History of Any Multi-Drug Resistant Organisms: None Reported Past Surgical History: No Surgical Hx Reported Additional Past Surgical History / Comment(s): "tubes in ears" Past Psychological History: Bipolar, Depression Smoking Status: Former smoker Past Alcohol Use History: None Reported Past Drug Use History: None Reported General Exam Limitations: no limitations General appearance: alert, in no apparent distress Head exam: Present: atraumatic, normocephalic, normal inspection Eye exam: Present: normal appearance, PERRL, EOMI. Absent: scleral icterus, conjunctival injection, periorbital swelling ENT exam: Present: normal exam, normal oropharynx, mucous membranes moist, TM's normal bilaterally, normal external ear exam Neck exam: Present: normal inspection, full ROM. Absent: tenderness, meningismus, lymphadenopathy Respiratory exam: Present: wheezes (Faint). Absent: normal lung sounds bilaterally, respiratory distress, rales, rhonchi, stridor Cardiovascular Exam: Present: regular rate, normal rhythm, normal heart sounds. Absent: systolic murmur, diastolic murmur, rubs, gallop, clicks Neurological exam: Present: alert, oriented X3, CN II-XII intact Skin exam: Present: warm, dry, intact, normal color. Absent: rash Course Vital Signs 03/20/18 03/20/18 03/20/18 11:32 12:06 12:12 Temperature 97.9 F Pulse Rate 69 72 Respiratory 18 20 Rate Blood Pressure 126/81 O2 Sat by Pulse 100 Oximetry 03/20/18 12:22 Temperature Pulse Rate 76 Respiratory Rate Blood Pressure O2 Sat by Pulse Oximetry Medical Decision Making - Medical Decision Making 23-year-old male presented for cough congestion. Patient has a history asthma was out of his inhaler. Chest x-ray obtained no acute abnormality. Patient we treated for mild acute asthma exacerbation. Return parameters were discussed. Disposition Clinical Impression: Asthma exacerbation Disposition: HOME SELF-CARE Condition: Stable Instructions: Asthma (ED) Additional Instructions: Please return to the Emergency Department if symptoms worsen or any other concerns. Prescriptions: Albuterol Sulfate [Proair Hfa] 1 - 2 puff INHALATION Q4HR PRN #1 inhaler PRN Reason: difficulty in breathing predniSONE 50 mg PO DAILY #5 tab Is patient prescribed a controlled substance at d/c from ED?: No Referrals: None,Stated [Primary Care Provider] - 1-2 days Time of Disposition: 13:17
--- NOTE | 2018-03-20 12:49 | XR ---
EXAMINATION TYPE: XR chest 2V DATE OF EXAM: 03/20/2018 COMPARISON: 05/25/2016 HISTORY: Shortness of breath TECHNIQUE: Frontal and lateral views of the chest are obtained. FINDINGS: There is no focal air space opacity, pleural effusion, or pneumothorax seen. The cardiac silhouette size is within normal limits. The osseous structures are intact. IMPRESSION: No acute cardiopulmonary process.
[2018-03-20 13:37] VITALS: BP 107/75; PULSE 79; RESP 16; TEMP 98
== END 2018-03-20 13:30 | disposition home or self-care (01) ==
LOC: EC 11:28
DX: J45.901 Unspecified asthma with (acute) exacerbation (principal); Z87.891 Personal history of nicotine dependence; Z91.040 Latex allergy status; Z91.030 Bee allergy status; Z88.5 Allergy status to narcotic agent; Z88.8 Allergy status to other drugs, medicaments and biological substances
CPT/HCPCS: 71046; 94640; 99285

== ENCOUNTER 2018-04-02 19:30 | Emergency (ER) | payer OTHER ==
[2018-04-02 19:35] VITALS: BP 131/89; PULSE 83; RESP 16; TEMP 98.6
--- NOTE | 2018-04-02 20:28 | ED ---
ENT HPI - General Chief complaint: ENT Stated complaint: poss strep throat Time Seen by Provider: 04/02/18 19:38 Source: patient, RN notes reviewed, old records reviewed Mode of arrival: ambulatory Limitations: no limitations - History of Present Illness Initial comments: Pt is a 23 year old male with one day of sore throat, concered it may be strep. He is here with significant other. Patient denies taking OTC treatment yes. He has tolerated fluids. No fevers. Denies Post nasal drainage. - Related Data Home Medications Medication Instructions Recorded Confirmed No Known Home Medications 04/02/18 04/02/18 Allergies Allergy/AdvReac Type Severity Reaction Status Date / Time acetaminophen [From [place]] Allergy Rash/Hives Verified 04/02/18 19:35 bee pollen Allergy Unknown Verified 04/02/18 19:35 fluoxetine Allergy Anaphylaxis Verified 04/02/18 19:35 hydrocodone [From [place]] Allergy Rash/Hives Verified 04/02/18 19:35 lamotrigine [From Lamictal] Allergy Anaphylaxis Verified 04/02/18 19:35 latex Allergy Unknown Verified 04/02/18 19:35 Review of Systems ROS Statement: Those systems with pertinent positive or pertinent negative responses have been documented in the HPI. ROS Other: All systems not noted in ROS Statement are negative. Past Medical History Past Medical History: Asthma Additional Past Medical History / Comment(s): "heart palpatations" the patient states he has a history of numerous episodes of otitis media in the past History of Any Multi-Drug Resistant Organisms: None Reported Past Surgical History: No Surgical Hx Reported Additional Past Surgical History / Comment(s): "tubes in ears" Past Psychological History: Bipolar, Depression Smoking Status: Former smoker Past Alcohol Use History: None Reported Past Drug Use History: None Reported General Exam - General Exam Comments Initial Comments: Well appearing 23 yo male, no distress Limitations: no limitations General appearance: alert, in no apparent distress Head exam: Present: atraumatic, normocephalic, normal inspection Eye exam: Present: normal appearance, PERRL, EOMI. Absent: scleral icterus, conjunctival injection, periorbital swelling ENT exam: Present: normal exam, normal oropharynx (No exudate. minimal erythema. ), mucous membranes moist, TM's normal bilaterally Neck exam: Present: normal inspection. Absent: tenderness, meningismus, lymphadenopathy Respiratory exam: Present: normal lung sounds bilaterally. Absent: respiratory distress, wheezes, rales, rhonchi, stridor Cardiovascular Exam: Present: regular rate, normal rhythm, normal heart sounds. Absent: systolic murmur, diastolic murmur, rubs, gallop, clicks Extremities exam: Present: normal inspection, full ROM, normal capillary refill. Absent: tenderness, pedal edema, joint swelling, calf tenderness Neurological exam: Present: alert, oriented X3, CN II-XII intact Psychiatric exam: Present: normal affect, normal mood Skin exam: Present: warm, dry, intact, normal color. Absent: rash Course Vital Signs 04/02/18 19:32 Temperature 98.6 F Pulse Rate 83 Respiratory 16 Rate Blood Pressure 131/89 O2 Sat by Pulse 98 Oximetry Medical Decision Making - Medical Decision Making 23 year old with one day of sore throat, no fever. No exudate and patient appears well. At this time discussed likely viral etiology. Rapid strep is negative. Discussed OTC treatment and follow up. - Lab Data Lab Results 04/02/18 Range/Units 20:00 Group A Strep Rapid Negative (Negative) Disposition Clinical Impression: Pharyngitis Disposition: HOME SELF-CARE Condition: Good Instructions: Pharyngitis (ED) Additional Instructions: Patient should take Motrin Tylenol, use throat lozenges for throat pain. Salt water rinses as well. Take decongestant medication. Follow-up with primary care physician. Is patient prescribed a controlled substance at d/c from ED?: No Referrals: None,Stated [Primary Care Provider] - 1-2 days Carole Merida MD [STAFF PHYSICIAN] - 1-2 days Time of Disposition: 20:40
== END 2018-04-02 20:45 | disposition home or self-care (01) ==
LOC: EC 19:30
DX: J02.9 Acute pharyngitis, unspecified (principal); Z87.891 Personal history of nicotine dependence; Z91.030 Bee allergy status; Z88.5 Allergy status to narcotic agent; Z88.8 Allergy status to other drugs, medicaments and biological substances; Z91.040 Latex allergy status
CPT/HCPCS: 87081; 87430; 99283

== ENCOUNTER 2018-04-18 14:10 | Emergency (ER) | payer OTHER ==
[2018-04-18 14:29] VITALS: BP 110/72; PULSE 80; RESP 18; TEMP 98.2
--- NOTE | 2018-04-18 15:11 | ED ---
Skin/Abscess/FB HPI - General Chief complaint: Skin/Abscess/Foreign Body Stated complaint: Lump on shoulder Time Seen by Provider: 04/18/18 14:33 Source: patient Mode of arrival: ambulatory Limitations: no limitations - History of Present Illness Initial comments: 23-year-old male with past medical history heart palpitations present today for chief complaint bump on right shoulder. Patient states that he palpated a bump on his right shoulder that was tender to palpation. He states his girlfriend took a look at it and stated it was just a pimple. Patient states he was concerned about MRSA presents today for evaluation. Patient denies history of MRSA, or previous abscess. Patient denies any fever, chills, night sweats or general malaise. Patient denies any break or injury to the skin. Patient denies any shoulder injury. Upon arrival patient appears well, afebrile vital signs within normal limits. No signs acute distress. Remainder of ROS negative , patient denies any recent shortness of breath, chest pain, palpatations, back pain, abdominal pain, nausea or vomiting, numbness or tingling, dysuria or hematuria, constipation or diarrhea, headaches or visual changes, or any other complaints. - Related Data Home Medications Medication Instructions Recorded Confirmed No Known Home Medications 04/02/18 04/02/18 Allergies Allergy/AdvReac Type Severity Reaction Status Date / Time acetaminophen [From [place]] Allergy Rash/Hives Verified 04/18/18 14:29 bee pollen Allergy Unknown Verified 04/18/18 14:29 fluoxetine Allergy Anaphylaxis Verified 04/18/18 14:29 hydrocodone [From [place]] Allergy Rash/Hives Verified 04/18/18 14:29 lamotrigine [From [place]] Allergy Anaphylaxis Verified 04/18/18 14:29 latex Allergy Unknown Verified 04/18/18 14:29 Review of Systems ROS Statement: Those systems with pertinent positive or pertinent negative responses have been documented in the HPI. ROS Other: All systems not noted in ROS Statement are negative. Past Medical History Past Medical History: Asthma Additional Past Medical History / Comment(s): "heart palpatations" the patient states he has a history of numerous episodes of otitis media in the past History of Any Multi-Drug Resistant Organisms: None Reported Past Surgical History: No Surgical Hx Reported Additional Past Surgical History / Comment(s): "tubes in ears" Past Psychological History: Bipolar, Depression Smoking Status: Former smoker Past Alcohol Use History: None Reported Past Drug Use History: None Reported General Exam - General Exam Comments Initial Comments: General: The patient is awake and alert, in no distress, and does not appear acutely ill. Eye: Pupils are equal, round and reactive to light, extra-ocular movements are intact. No nystagmus. There is normal conjunctiva bilaterally. No signs of icterus. Ears, nose, mouth and throat: There are moist mucous membranes and no oral lesions. Cardiovascular: There is a regular rate and rhythm. No murmur, rub or gallop is appreciated. Respiratory: Lungs are clear to auscultation, respirations are non-labored, breath sounds are equal. No wheezes, stridor, rales, or rhonchi. Musculoskeletal: Normal ROM, no tenderness. Strength 5/5. Sensation intact. Pulses equal bilaterally 2+. Neurological: A&O x 3. CN II-XII intact, There are no obvious motor or sensory deficits. Coordination appears grossly intact. Speech is normal. Skin: Skin is warm and dry and no rashes. Small closed comedone of the right posterior shoulder, no surrounding erythema no fluctulance. Mild tenderness to palpation. No drainage. <1cm Psychiatric: Cooperative, appropriate mood & affect, normal judgment. Limitations: no limitations Course Vital Signs 04/18/18 14:26 Temperature 98.2 F Pulse Rate 80 Respiratory 18 Rate Blood Pressure 110/72 O2 Sat by Pulse 98 Oximetry Medical Decision Making - Medical Decision Making PE revealed comedone with no signs of infection. Pt appears well. No further treatment needed at this time. discussed warm compresses and applying bacitracin and importance of not picking/popping area. Pt agreeable with plan and discharge. Return parameters discussed at length with patient. Pt discharged in stable condition. Disposition Clinical Impression: Closed comedone Disposition: HOME SELF-CARE Condition: Good Additional Instructions: Please use topical medication as discussed. Apply warm compresses and avoid picking/popping blemish as discussed. Please follow-up with family doctor in the next 2 days of symptoms have not improved. Please return to emergency room if the symptoms increase or worsen or for any other concerns. Is patient prescribed a controlled substance at d/c from ED?: No Referrals: None,Stated [Primary Care Provider] - 1-2 days Time of Disposition: 15:10
== END 2018-04-18 15:17 | disposition home or self-care (01) ==
LOC: EC 14:10
DX: L70.0 Acne vulgaris (principal); Z87.891 Personal history of nicotine dependence; Z91.030 Bee allergy status; Z91.040 Latex allergy status; Z88.8 Allergy status to other drugs, medicaments and biological substances; Z88.5 Allergy status to narcotic agent; Z88.6 Allergy status to analgesic agent
CPT/HCPCS: 99283

== ENCOUNTER 2018-08-25 16:42 | Emergency (ER) | payer OTHER ==
[2018-08-25 16:53] VITALS: BP 107/60; PULSE 81; RESP 16; TEMP 97.8
[2018-08-25] MEDS ORDERED: PROPARACAINE 0.5% OPHTH DROPS 15 ML BTL RIGHT EYE STA (17:19)
--- NOTE | 2018-08-25 18:02 | ED ---
Eye Problem HPI - General Chief complaint: Eye Problems Stated complaint: Eye Pain Time Seen by Provider: 08/25/18 17:07 Source: patient Mode of arrival: ambulatory Limitations: no limitations - History of Present Illness Initial comments: 23-year-old male who denies past medical history presenting today for chief complaint of right eye irritation. 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 He denies any specific eye injury denies using high- power grinding tools he denies chopping or splitting wood he denies using welding tools. Patient denies any specific instance where he felt a foreign body go into his right eye however a few hours after work he noticed right eye irritation and redness. Patient states it felt scratchy as if something was in it. He states it was watering. Patient denies any visual change she states when a Silva there is some blurred vision however when he wipes side of his vision is normal he denies any visual loss or diplopia. Denies any headache nausea or vomiting. Patient states tetanus up-to-date remaining review is negative upon arrival patient appears well no signs of acute distress. Vital signs within acceptable limits. - Related Data Previous Rx's Medication Instructions Recorded Erythromycin Ophth Oint [Romycin 1 applic RIGHT EYE QID 5 Days #1 08/25/18 Ophth Oint] tube Allergies Allergy/AdvReac Type Severity Reaction Status Date / Time acetaminophen [From [place]] Allergy Rash/Hives Verified 08/25/18 17:16 bee pollen Allergy Unknown Verified 08/25/18 17:16 fluoxetine Allergy Anaphylaxis Verified 08/25/18 17:16 hydrocodone [From [place]] Allergy Rash/Hives Verified 08/25/18 17:16 lamotrigine [From Lamictal] Allergy Anaphylaxis Verified 08/25/18 17:16 latex Allergy Unknown Verified 08/25/18 17:16 Review of Systems ROS Statement: Those systems with pertinent positive or pertinent negative responses have been documented in the HPI. ROS Other: All systems not noted in ROS Statement are negative. Past Medical History Past Medical History: Asthma Additional Past Medical History / Comment(s): "heart palpatations" the patient states he has a history of numerous episodes of otitis media in the past History of Any Multi-Drug Resistant Organisms: None Reported Past Surgical History: No Surgical Hx Reported Additional Past Surgical History / Comment(s): "tubes in ears" Past Psychological History: Bipolar, Depression Smoking Status: Former smoker Past Alcohol Use History: None Reported Past Drug Use History: None Reported General Exam - General Exam Comments Initial Comments: General: The patient is awake and alert, in no distress, and does not appear acutely ill. Eye: +3 mm pupils are equal, round and reactive to light, extra-ocular movements are intact. No nystagmus. There is normal conjunctiva bilaterally. No signs of icterus. Upon inspection of the eyes there is right eye conjunctival injection with sparing of the limbus. No cell and flare. Patient has mild photophobia. There is diffuse superficial abrasions mostly at the 3 o'clock position consistent with a fine dust exposure. There is no evidence of significant fluorescein uptake. no FB. (-) Siedels sign. Eyelids were flipped there is no evidence of foreign body to the upper or lower lid. IOP 12 OD, OS, OU. Ears, nose, mouth and throat: There are moist mucous membranes and no oral lesions. Neck: The neck is supple, there is no tenderness or JVD. Cardiovascular: There is a regular rate and rhythm. No murmur, rub or gallop is appreciated. Respiratory: Lungs are clear to auscultation, respirations are non-labored, breath sounds are equal. No wheezes, stridor, rales, or rhonchi. Musculoskeletal: Normal ROM, no tenderness. Strength 5/5. Sensation intact. Pulses equal bilaterally 2+. Neurological: A&O x 3. CN II-XII intact, There are no obvious motor or sensory deficits. Coordination appears grossly intact. Speech is normal. Skin: Skin is warm and dry and no rashes or lesions are noted. Psychiatric: Cooperative, appropriate mood & affect, normal judgment. Limitations: no limitations Course Vital Signs 08/25/18 16:51 Temperature 97.8 F Pulse Rate 81 Respiratory 16 Rate Blood Pressure 107/60 O2 Sat by Pulse 97 Oximetry Medical Decision Making - Medical Decision Making 23-year-old male presenting for right eye irritation. Ejection on examination. This is Rubi despairing. Very superficial diffuse uptake of fluorescein and pattern consistent with fine corneal abrasions. No evidence of foreign body. Patient denies any chemical substances to eye today. Patient had relief of proparacaine. No FB on upper or lower internal eyelids. Patient denies any visual loss blurred vision or visual changes. Patient has mild photophobia. Patient was evaluated in person by attending provider Dr. Lerma who performed slit lamp examination. At this time feel patient is stable for discharge with treatment for corneal abrasion with erythromycin ointment. Patient to follow-up with ophthalmology return for worsening symptoms. Patient is group OF care as well as discharge he is understanding of the importance of follow-up including risk for corneal scarring. Patient is discharged appearing well Disposition Clinical Impression: Corneal abrasion, right Disposition: HOME SELF-CARE Condition: Good Instructions (If sedation given, give patient instructions): Corneal Abrasion (ED) Additional Instructions: Please use medication as discussed. Please follow-up with ophthalmology in the next 1-2 days. Please return to emergency room if the symptoms increase or worsen or for any other concerns. Prescriptions: Erythromycin Ophth Oint [Romycin Ophth Oint] 1 applic RIGHT EYE QID 5 Days #1 tube Is patient prescribed a controlled substance at d/c from ED?: No Referrals: None,Stated [Primary Care Provider] - 1-2 days Barrie Caban MD [STAFF PHYSICIAN] - 1-2 days Time of Disposition: 18:02
== END 2018-08-25 18:13 | disposition home or self-care (01) ==
LOC: EC 16:42
DX: S05.01XA Injury of conjunctiva and corneal abrasion without foreign body, right eye, initial encounter (principal); Z87.891 Personal history of nicotine dependence; Z91.030 Bee allergy status; Z91.040 Latex allergy status; Z88.5 Allergy status to narcotic agent; Z88.8 Allergy status to other drugs, medicaments and biological substances
CPT/HCPCS: 99283

== ENCOUNTER 2018-09-02 09:18 | Emergency (ER) | payer OTHER ==
[2018-09-02 09:25] VITALS: BP 120/83; PULSE 78; RESP 18; TEMP 98
[2018-09-02] MEDS ORDERED: ACETAMINOPHEN TAB 500 MG TAB PO STA (09:37)
--- NOTE | 2018-09-02 09:39 | ED ---
General Adult HPI - General Chief complaint: Head Injury Stated complaint: [facility] - head injury Time Seen by Provider: 09/02/18 09:31 Source: patient, RN notes reviewed, old records reviewed Mode of arrival: ambulatory Limitations: no limitations - History of Present Illness Initial comments: 23-year-old male with no significant past medical history presents for evaluation of headache. Patient developed headache after being hit by a sheet of drywall yesterday morning at 10:30. It has been approximately 23 hours since the injury occurred. There was no loss consciousness. Patient did develop headache and has had headache over the past one day. He describes headache as severe occipital headache. He does complain of some neck pain which is sharp and shooting. Denies extremity weakness or numbness. Denies any other injury. No anticoagulation. - Related Data Home Medications Medication Instructions Recorded Confirmed Ibuprofen [Motrin Ib] 400 mg PO Q6H PRN 09/02/18 09/02/18 Previous Rx's Medication Instructions Recorded Ibuprofen [Motrin] 600 mg PO Q8HR PRN #24 tab 09/02/18 Allergies Allergy/AdvReac Type Severity Reaction Status Date / Time bee pollen Allergy Unknown Verified 09/02/18 09:35 fluoxetine Allergy Anaphylaxis Verified 09/02/18 09:35 hydrocodone [From [place]] Allergy Rash/Hives Verified 09/02/18 09:35 lamotrigine [From Lamictal] Allergy Anaphylaxis Verified 09/02/18 09:35 latex Allergy Unknown Verified 09/02/18 09:35 Review of Systems ROS Statement: Those systems with pertinent positive or pertinent negative responses have been documented in the HPI. ROS Other: All systems not noted in ROS Statement are negative. Past Medical History Past Medical History: Asthma Additional Past Medical History / Comment(s): "heart palpatations" the patient states he has a history of numerous episodes of otitis media in the past History of Any Multi-Drug Resistant Organisms: None Reported Past Surgical History: No Surgical Hx Reported Additional Past Surgical History / Comment(s): "tubes in ears" Past Psychological History: Bipolar, Depression Smoking Status: Former smoker Past Alcohol Use History: None Reported Past Drug Use History: None Reported General Exam Limitations: no limitations General appearance: alert, in no apparent distress Head exam: Present: atraumatic, normocephalic Eye exam: Present: normal appearance, PERRL ENT exam: Present: normal exam Neck exam: Present: normal inspection, tenderness (Left paraspinal tenderness, no midline tenderness), full ROM Respiratory exam: Present: normal lung sounds bilaterally. Absent: respiratory distress Cardiovascular Exam: Present: regular rate, normal rhythm, systolic murmur GI/Abdominal exam: Present: soft. Absent: distended, tenderness, guarding Back exam: Present: normal inspection, full ROM. Absent: tenderness Neurological exam: Present: alert, oriented X3, CN II-XII intact, normal gait. Absent: motor sensory deficit Psychiatric exam: Present: normal affect, normal mood Skin exam: Present: warm, dry, intact. Absent: cyanosis, diaphoretic Course Vital Signs 09/02/18 09:22 Temperature 98.0 F Pulse Rate 78 Respiratory 18 Rate Blood Pressure 120/83 O2 Sat by Pulse 99 Oximetry Medical Decision Making - Medical Decision Making CT performed, negative for intracranial hemorrhage or mass effect and CT his cervical spine negative for fracture subluxation. Incidentally there is radiographic evidence of mastoiditis, patient has no erythema, no tenderness over the bilateral mastoids, no fever. Also patient does have emphysematous change in the upper lung sarkar. Encouraged to quit smoking. Patient will be discharged home with Tylenol Motrin for pain. Disposition Clinical Impression: Concussion without loss of consciousness Disposition: HOME SELF-CARE Condition: Good Instructions (If sedation given, give patient instructions): Concussion (ED) Prescriptions: Ibuprofen [Motrin] 600 mg PO Q8HR PRN #24 tab PRN Reason: Pain Is patient prescribed a controlled substance at d/c from ED?: No Referrals: None,Stated [Primary Care Provider] - 1-2 days Time of Disposition: 10:12
--- NOTE | 2018-09-02 10:01 | CT ---
EXAMINATION TYPE: CT brain nylaine wo con DATE OF EXAM: 09/02/2018 COMPARISON: 03/28/2014 HISTORY: 23-year-old male with injury today, Head and neck pain CT DLP: 1235.4 mGycm Automated exposure control for dose reduction was used. Technique: Examination of the head was done in axial plane without intravenous contrast. Coronal and sagittal reconstructions performed. CT of the cervical spine was obtained in axial plane without intravenous injection of contrast mater ial. Coronal and sagittal reformatted images were obtained from the axial views for evaluation of f ractures, spinal alignment and canal. FINDINGS: Head: There is no evidence of acute intracranial hemorrhage, acute ischemic changes, mass, mass-effect, or extra-axial fluid collection. There is no effacement of cerebral sulci or basal subarachnoid cister ns. There is no hydrocephalus. There is no midline shift. Stuart-white matter distinction is preserv ed. Subtle subcortical white matter hypodensity superior and posterior left frontal lobe is unchanged fro m 2013 suggesting a chronic, benign process. Mild pansinus mucosal thickening. Additional partial opacification of the mastoid air cells. Orbits a nd globes appear intact. Cervical spine: The craniocervical junction abnormality, predental space widening, or prevertebral soft tissue swelli ng. Preserved alignment of the cervical spine. No acute fracture of the cervical spine. Disc interspaces are maintained. Assessment of the spinal canal from C7-T1 and below is limited due to artifact from patient's shoulde rs. Lingual tonsillar hypertrophy especially on the left. An emphysematous cyst is noted in the left uppe r lobe. Sagittal and coronal reformatted images confirm above findings. COMBINED IMPRESSION: 1. No acute intracranial abnormality seen. 2. No acute fracture or malalignment of the cervical spine. 3. [id number] chronic pansinus disease. 4. Partial opacification of the bilateral mastoid air cells. Correlate for any mastoid pain to exclud e mastoiditis. 5. An emphysematous cyst seen in the left upper lobe. Query smoking history.
== END 2018-09-02 10:40 | disposition home or self-care (01) ==
LOC: EC 09:18
DX: S06.0X0A Concussion without loss of consciousness, initial encounter (principal); H70.93 Unspecified mastoiditis, bilateral; Z87.891 Personal history of nicotine dependence; Z91.048 Other nonmedicinal substance allergy status; Z88.8 Allergy status to other drugs, medicaments and biological substances; Z88.5 Allergy status to narcotic agent; Z91.040 Latex allergy status; W22.8XXA Striking against or struck by other objects, initial encounter; Y92.69 Other specified industrial and construction area as the place of occurrence of the external cause; Y99.0 Civilian activity done for income or pay
CPT/HCPCS: 70450; 72125; 99284

== ENCOUNTER 2018-10-08 10:18 | Emergency (ER) | payer OTHER ==
[2018-10-08 10:22] VITALS: BP 131/85; PULSE 74; TEMP 97.6
[2018-10-08 10:38] VITALS: RESP 18
[2018-10-08] MEDS ORDERED: ONDANSETRON 4 MG ODT STARTER PACK 2 TAB BTL PO STA (10:43)
--- NOTE | 2018-10-08 10:45 | ED ---
URI HPI - General Chief Complaint: Upper Respiratory Infection Stated Complaint: congestion Time Seen by Provider: 10/08/18 10:24 Source: patient, RN notes reviewed, old records reviewed Mode of arrival: ambulatory - History of Present Illness Initial Comments: This is a 23-year-old male who presents emergency room today with 1 day of nasal congestion, and episode of vomiting last night, and dry cough. He complains of just medial to took Claritin yesterday thinking was related to ALLERGIES. Patient has had no fevers or chills. He reports that the cough is nonproductive. Patient is a nonsmoker. Generally healthy. He reports that he left work today's come to emergency room. He states he would like to return. Patient states that he has had no other abdominal pains or changes in urination or bowel habits. Denies any history of sick contacts. - Related Data Home Medications Medication Instructions Recorded Confirmed Ibuprofen [Motrin Ib] 400 mg PO Q6H PRN 09/02/18 09/02/18 Previous Rx's Medication Instructions Recorded Ibuprofen [Motrin] 600 mg PO Q8HR PRN #24 tab 09/02/18 Fluticasone Propionate [Flonase 1 spray EA NOSTRIL TID #1 bottle 10/08/18 Allergy Relief] Ibuprofen [Motrin] 600 mg PO Q8HR PRN #20 tab 10/08/18 Loratadine-Pseudoeph 5-120 mg 1 each PO Q12HR #20 tab 10/08/18 [Claritin-D 12 HR] methylPREDNISolone Dose Pack 4 mg PO DIRECTED #21 package 10/08/18 [Medrol Dose Pack] Allergies Allergy/AdvReac Type Severity Reaction Status Date / Time bee pollen Allergy Unknown Verified 10/08/18 10:22 fluoxetine Allergy Anaphylaxis Verified 10/08/18 10:22 hydrocodone [From [employer]] Allergy Rash/Hives Verified 10/08/18 10:22 lamotrigine [From Lamictal] Allergy Anaphylaxis Verified 10/08/18 10:22 latex Allergy Unknown Verified 10/08/18 10:22 Review of Systems ROS Statement: Those systems with pertinent positive or pertinent negative responses have been documented in the HPI. ROS Other: All systems not noted in ROS Statement are negative. Past Medical History Past Medical History: Asthma Additional Past Medical History / Comment(s): "heart palpatations" the patient states he has a history of numerous episodes of otitis media in the past History of Any Multi-Drug Resistant Organisms: None Reported Past Surgical History: No Surgical Hx Reported Additional Past Surgical History / Comment(s): "tubes in ears" Past Psychological History: Bipolar, Depression Smoking Status: Former smoker Past Alcohol Use History: Occasional Past Drug Use History: None Reported General Exam - General Exam Comments Initial Comments: This is an alert and oriented 23-year-old male. No significant distress. General: Well appearing, well nourished, in no distress. Oriented x 3, normal mood and affect . Ambulating without difficulty. Skin: Good turgor, no rash, unusual bruising or prominent lesions Hair: Normal texture and distribution. HEENT: Head: Normocephalic, atraumatic, no visible or palpable masses, depressions, or scaring. Eyes: Visual acuity intact, conjunctiva clear, sclera non-icteric, EOM intact, PERRL. Ears: EACs clear, normal effusion around the right TM. No erythema. Nose: She has boggy nasal turbinates, rhinorrhea noted. Mouth: Mucous membranes moist, no mucosal lesions. Teeth/Gums: No obvious caries or periodontal disease. No gingival inflammation or significant resorption. Pharynx: Mucosa mild erythema. No exudate. Neck: Supple, without lesions, bruits, or adenopathy, thyroid non-enlarged and non-tender Heart: No cardiomegaly or thrills; regular rate and rhythm, no murmur or gallop Lungs: Clear to auscultation and percussion Abdomen: Bowel sounds normal, no tenderness, organomegaly, masses, or hernia Back: Spine normal without deformity or tenderness, no CVA tenderness Extremities: No amputations or deformities, cyanosis, edema or varicosities, peripheral pulses intact Musculoskeletal: Normal gait and station. No misalignment, asymmetry, crepitation, defects, tenderness, masses, effusions, decreased range of motion, instability, atrophy or abnormal strength or tone in the head, neck, spine, ribs, pelvis or extremities. Neurologic: CN 2-12 normal. Sensation to pain, touch, and proprioception normal. DTRs normal in upper and lower extremities. No pathologic reflexes. Psychiatric: Oriented X3, intact recent and remote memory, judgment and insight, normal mood and affect. Course Vital Signs 10/08/18 10/08/18 10:20 10:37 Temperature 97.6 F Pulse Rate 74 Respiratory 20 18 Rate Blood Pressure 131/85 O2 Sat by Pulse 99 Oximetry Medical Decision Making - Medical Decision Making Patient is a 23-year-old male with one day of upper respiratory congestion, and had an episode of vomiting. He claims of a dry cough. Discussed likely a viral URI related to ALLERGIES. Patient will be treated this time with Flonase, decongestant medication. He did have episodes of vomiting with Zofran starter pack. Patient agrees treatment plan will comply. Return parameters were discussed. Discussed close follow-up with primary care doctor. He otherwise appears well. Disposition Clinical Impression: URI (upper respiratory infection) Disposition: HOME SELF-CARE Condition: Good Instructions (If sedation given, give patient instructions): Upper Respiratory Infection (ED) Additional Instructions: Distress rest, remain hydrated. Take the medication as nasal spray as directed. If there is any worsening signs or symptoms to return for reevaluation. Prescriptions: Loratadine-Pseudoeph 5-120 mg [Claritin-D 12 HR] 1 each PO Q12HR #20 tab Fluticasone Propionate [Flonase Allergy Relief] 1 spray EA NOSTRIL TID #1 bottle methylPREDNISolone Dose Pack [Medrol Dose Pack] 4 mg PO DIRECTED #21 package Ibuprofen [Motrin] 600 mg PO Q8HR PRN #20 tab PRN Reason: Pain Is patient prescribed a controlled substance at d/c from ED?: No Referrals: None,Stated [Primary Care Provider] - 1-2 days Yumi Sharma MD [REFERRING] - 1-2 days Time of Disposition: 10:42
== END 2018-10-08 10:52 | disposition home or self-care (01) ==
LOC: EC 10:18
DX: J06.9 Acute upper respiratory infection, unspecified (principal); R11.10 Vomiting, unspecified; Z87.891 Personal history of nicotine dependence; Z91.040 Latex allergy status; Z88.5 Allergy status to narcotic agent; Z88.8 Allergy status to other drugs, medicaments and biological substances; Z91.030 Bee allergy status
CPT/HCPCS: 99283; S0119

== ENCOUNTER 2018-10-16 18:14 | Emergency (ER) | payer OTHER ==
[2018-10-16 19:00] VITALS: BP 113/71; PULSE 99; RESP 16; TEMP 98.4
[2018-10-16] MEDS ORDERED: AMOXICILLIN 500MG STARTER PACK 3 CAP BTL PO STA (19:19)
--- NOTE | 2018-10-16 19:30 | ED ---
ENT HPI - General Chief complaint: ENT Stated complaint: Ear pain Time Seen by Provider: 10/16/18 19:05 Source: patient Mode of arrival: ambulatory Limitations: no limitations - History of Present Illness Initial comments: Patient is a 23-year-old male presents emergency Department with right otalgia. Patient reports the pain started this morning and has increasing severity. Patient reports the pain does not radiate anywhere. Patient reports the pain is throbbing in nature and rates it an 8. Patient denies ear discharge, fever, sinus congestion, rhinorrhea, headache, nausea or vomiting. Patient does not have ALLERGIES. Patient denies taking any medication to alleviate the symptoms. - Related Data Home Medications Medication Instructions Recorded Confirmed Ibuprofen [Motrin Ib] 400 mg PO Q6H PRN 09/02/18 09/02/18 Previous Rx's Medication Instructions Recorded Ibuprofen [Motrin] 600 mg PO Q8HR PRN #24 tab 09/02/18 Fluticasone Propionate [Flonase 1 spray EA NOSTRIL TID #1 bottle 10/08/18 Allergy Relief] Ibuprofen [Motrin] 600 mg PO Q8HR PRN #20 tab 10/08/18 Loratadine-Pseudoeph 5-120 mg 1 each PO Q12HR #20 tab 10/08/18 [Claritin-D 12 HR] methylPREDNISolone Dose Pack 4 mg PO DIRECTED #21 package 10/08/18 [Medrol Dose Pack] Amoxicillin 500 mg PO Q8H #30 capsule 10/16/18 Allergies Allergy/AdvReac Type Severity Reaction Status Date / Time bee pollen Allergy Unknown Verified 10/16/18 19:00 fluoxetine Allergy Anaphylaxis Verified 10/16/18 19:00 hydrocodone [From [place]] Allergy Rash/Hives Verified 10/16/18 19:00 lamotrigine [From Lamictal] Allergy Anaphylaxis Verified 10/16/18 19:00 latex Allergy Unknown Verified 10/16/18 19:00 Review of Systems ROS Statement: Those systems with pertinent positive or pertinent negative responses have been documented in the HPI. ROS Other: All systems not noted in ROS Statement are negative. Past Medical History Past Medical History: Asthma Additional Past Medical History / Comment(s): "heart palpatations" the patient states he has a history of numerous episodes of otitis media in the past History of Any Multi-Drug Resistant Organisms: None Reported Past Surgical History: Ear Surgery Additional Past Surgical History / Comment(s): "tubes in ears" Past Psychological History: Bipolar, Depression Smoking Status: Former smoker Past Alcohol Use History: Occasional Past Drug Use History: None Reported General Exam - General Exam Comments Initial Comments: General: Well-developed well-nourished distress HEENT: Normocephalic/atraumatic, PERLL, pharynx erythema, bulging erythema on right tympanic membrane, left tympanic membrane normal. Neck: Supple, nontender, trachea midline Chest/Lungs: Normal respirations, no signs of respiratory distress clear to auscultation bilaterally no wheezes, rales, rhonchi Cardiac: Regular rate and rhythm, normal S1-S2, no murmurs rubs or gallops Abdomen/GI: Soft nontender, bowel sounds equal or quadrant x4, no guarding, no rebound no CVA tenderness Musculoskeletal: Nontender, full range of motion, no edema, strength equal bilaterally Skin: Warmth, no rashes or lesions, no cyanosis or diaphoresis Neurologic: AAO x 3, CN 2-12 intact, Psychiatric: Mood and affect normal, judgment normal Limitations: no limitations Course Vital Signs 10/16/18 18:58 Temperature 98.4 F Pulse Rate 99 Respiratory 16 Rate Blood Pressure 113/71 O2 Sat by Pulse 99 Oximetry Medical Decision Making - Medical Decision Making Patient is a 23-year-old male presents emergency Department with right ear otalgia. Based on history of physical examination suspect the patient to have otitis media. Patient will be treated with a 10 day course of amoxicillin. Patient advised to follow-up with primary care. Strict return parameters were thoroughly discussed with patient who is understandable and erythema with treatment plan. Patient advised to alternate between Tylenol and ibuprofen for pain control. Patient advised to take prescribed medication as directed. Case discussed with physician. Disposition Clinical Impression: Otalgia of right ear Disposition: HOME SELF-CARE Condition: Stable Instructions (If sedation given, give patient instructions): Earache (ED) Additional Instructions: Please see prescribed medication as directed. Please follow up with primary care. Please return to emergency department if symptoms worsen. Prescriptions: Amoxicillin 500 mg PO Q8H #30 capsule Is patient prescribed a controlled substance at d/c from ED?: No Referrals: None,Stated [Primary Care Provider] - 1-2 days Time of Disposition: 19:29
== END 2018-10-16 19:56 | disposition home or self-care (01) ==
LOC: EC 18:14
DX: H92.01 Otalgia, right ear (principal); Z96.22 Myringotomy tube(s) status; Z87.891 Personal history of nicotine dependence; Z91.048 Other nonmedicinal substance allergy status; Z88.8 Allergy status to other drugs, medicaments and biological substances; Z88.5 Allergy status to narcotic agent; Z91.040 Latex allergy status
CPT/HCPCS: 99282

== ENCOUNTER 2018-12-13 18:00 | Emergency (ER) | payer OTHER ==
[2018-12-13 19:02] VITALS: BP 120/73; PULSE 76; RESP 18; TEMP 98.4
[2018-12-13] MEDS ORDERED: LIDOCAINE 1% INJ 10MG/ML (20 ML MDV) SQ STA (20:47)
[2018-12-13] MEDS ORDERED: WATER FOR IRRIG, STERILE 1,000 ML BTL IRRIGATION ONE (20:47)
[2018-12-13] MEDS ORDERED: CEPHALEXIN 500MG STARTER PACK 4 CAP BTL PO STA (22:04)
--- NOTE | 2018-12-13 22:05 | ED ---
General Adult HPI - General Chief complaint: Wound/Laceration Stated complaint: RT RING FINGER LAC Time Seen by Provider: 12/13/18 20:29 Source: patient, RN notes reviewed, old records reviewed Mode of arrival: ambulatory Limitations: no limitations - History of Present Illness Initial comments: 23-year-old male patient presents ED chief complaint of laceration to distal aspect of fourth digit. Patient reports that he was swinging a sledgehammer. Patient reports that he slipped and the distal aspect of his finger hit the rear fender of the truck. Patient reports that he has a laceration to the distal aspect of his fourth finger. Patient was lower extremity range of motion of digit. Reports tetanus was updated last year. Denies any other complaints. Systemic: Pt denies fatigue, fever/chills, rash. Pt denies weakness, night sweats, weight loss. Neuro: Pt denies headache, visual disturbances, syncope or pre-syncope. HEENT: Pt denies ocular discharge or irritation, otalgia, rhinorrhea, pharyngitis or notable lymphadenopathy. Cardiopulmonary: Pt denies chest pain, SOB, heart palpitations, dyspnea on exertion. Abdominal/GI: Pt denies abdominal pain, n/v/d. : Pt denies dysuria, burning w/ urination, frequency/urgency. Denies new onset urinary or bowel incontinence. MSK: Pt denies myalgia, loss of strength or function in extremities. Neuro: Pt denies new onset weakness, paresthesias. - Related Data Home Medications Medication Instructions Recorded Confirmed Ibuprofen [Motrin Ib] 400 mg PO Q6H PRN 09/02/18 09/02/18 Previous Rx's Medication Instructions Recorded Ibuprofen [Motrin] 600 mg PO Q8HR PRN #24 tab 09/02/18 Fluticasone Propionate [Flonase 1 spray EA NOSTRIL TID #1 bottle 10/08/18 Allergy Relief] Ibuprofen [Motrin] 600 mg PO Q8HR PRN #20 tab 10/08/18 Loratadine-Pseudoeph 5-120 mg 1 each PO Q12HR #20 tab 10/08/18 [Claritin-D 12 HR] methylPREDNISolone Dose Pack 4 mg PO DIRECTED #21 package 10/08/18 [Medrol Dose Pack] Amoxicillin 500 mg PO Q8H #30 capsule 10/16/18 Cephalexin [Keflex] 500 mg PO Q6HR 3 Days #12 cap 12/13/18 Allergies Allergy/AdvReac Type Severity Reaction Status Date / Time bee pollen Allergy Unknown Verified 10/16/18 19:00 fluoxetine Allergy Anaphylaxis Verified 10/16/18 19:00 hydrocodone [From [place]] Allergy Rash/Hives Verified 10/16/18 19:00 lamotrigine [From Lamictal] Allergy Anaphylaxis Verified 10/16/18 19:00 latex Allergy Unknown Verified 10/16/18 19:00 Review of Systems ROS Statement: Those systems with pertinent positive or pertinent negative responses have been documented in the HPI. ROS Other: All systems not noted in ROS Statement are negative. Past Medical History Past Medical History: Asthma Additional Past Medical History / Comment(s): "heart palpatations" the patient states he has a history of numerous episodes of otitis media in the past History of Any Multi-Drug Resistant Organisms: None Reported Past Surgical History: Ear Surgery Additional Past Surgical History / Comment(s): "tubes in ears" Past Psychological History: Bipolar, Depression Smoking Status: Former smoker Past Alcohol Use History: Occasional Past Drug Use History: None Reported General Exam - General Exam Comments Initial Comments: Constitutional: NAD, AOX3, Pt has pleasant affect. HEENT: NC/AT, trachea midline, neck supple, no lymphadenopathy. Posterior pharynx non erythematous, without exudates. External ears appear normal, without discharge. Mucous membranes moist. Eyes PERRLA, EOM intact. There is no scleral icterus. No pallor noted. Cardiopulmonary: RRR, no murmurs, rubs or gallops, no JVD noted. Lungs CTAB in anterior and posterior sarkar. No peripheral edema. Abdominal exam: Abdomen soft and non-distended. Abdomen non-tender to palpation in all 4 quadrants. Bowel sounds active in LLQ. No hepatosplenomegaly. No ecchymosis Neuro: CN II-XII grossly intact. No nuchal rigidity. No raccon eyes, no mcgrath sign, no hemotympanum. No cervical spinal tenderness. MSK: 1cm laceration to distal aspect of fourth digit. Digit is nontender to palpation. Full active range of motion of digit. Sensation intact. Small distal nail avulsion. Wound vigorously irrigated 1 L normal saline. Approximated one simple interrupted suture. No posterior calf tenderness bilaterally, homans sign negative bilaterally. Posterior tibialis and radial pulse +2 bilaterally. Sensation intact in upper and lower extremities. Full active ROM in upper and lower extremities, 5/5 stregnth. Limitations: no limitations Course Vital Signs 12/13/18 18:59 Temperature 98.4 F Pulse Rate 76 Respiratory 18 Rate Blood Pressure 120/73 O2 Sat by Pulse 100 Oximetry Procedures - Laceration Laceration #1 Consent Obtained: verbal consent Indication: laceration Site: hand (4th finger distal) Size (cm): 1 Description: linear Depth: simple, single layer Anesthetic Used: lidocaine 1% Anesthesia Technique: local infiltration Amount (mls): 2 Pre-repair: wound explored, irrigated extensively (1L NS ) Type of Sutures: nylon Size of Sutures: 5-0 Number of Sutures: 1 Medical Decision Making - Medical Decision Making 23-year-old male patient presents ED chief complaint of laceration to distal aspect of fourth digit. Patient reports that he was swinging a sledgehammer. Patient reports that he slipped and the distal aspect of his finger hit the rear fender of the truck. Patient reports that he has a laceration to the distal aspect of his fourth finger. Patient was lower extremity range of motion of digit. Reports tetanus was updated last year. Denies any other complaints. Pt VSS, afebrile. Physical exam displayed: 1cm laceration to distal aspect of fourth digit. Digit is nontender to palpation. Full active range of motion of digit. Small distal nail avulsion. Wound vigorously irrigated 1 L normal saline. Approximated one simple interrupted suture. Patient will follow-up with primary care provider, without rigidity or condition worsens. Case discussed with Dr. Kong. Disposition Clinical Impression: Laceration Disposition: HOME SELF-CARE Condition: Stable Instructions (If sedation given, give patient instructions): Laceration (ED) Additional Instructions: Patient to adhere to previously discussed treatment plan and will take medication(s) as directed. Patient to follow up with PCP in 1-2 days. Patient to return to ED if symptoms do not improve. Follow-up with primary care provider tomorrow. Take medication as directed. Return to ER if condition worsens. Prescriptions: Cephalexin [Keflex] 500 mg PO Q6HR 3 Days #12 cap Is patient prescribed a controlled substance at d/c from ED?: No Referrals: None,Stated [Primary Care Provider] - 1-2 days
== END 2018-12-13 22:16 | disposition home or self-care (01) ==
LOC: EC 18:00
DX: S61.214A Laceration without foreign body of right ring finger without damage to nail, initial encounter (principal); Z87.891 Personal history of nicotine dependence; Z88.5 Allergy status to narcotic agent; Z88.8 Allergy status to other drugs, medicaments and biological substances; Z91.030 Bee allergy status; Z91.040 Latex allergy status; W26.8XXA Contact with other sharp object(s), not elsewhere classified, initial encounter; Y93.89 Activity, other specified
CPT/HCPCS: 99283; 12001; J2001

== ENCOUNTER 2019-01-24 12:25 | Emergency (ER) | payer OTHER ==
[2019-01-24 12:46] VITALS: TEMP 98.2
--- NOTE | 2019-01-24 14:18 | US ---
EXAMINATION TYPE: US groin RT DATE OF EXAM: 01/24/2019 COMPARISON: CT abdomen and pelvis September 10, 2017 CLINICAL HISTORY: please assess for hernia/masses. patient states on Thursday he lifted cast iron pip es and has felt a bulge since which has been getting bigger since. Area of concern scanned at right groin. With valsalva performed, bowel seen protruding through ingui nal canal- 1.0 cm AP diameter. Due to patient small body habitus, bowel movement best visualized wit h valsalva movement. IMPRESSION: Confirmation of new bowel-containing right inguinal hernia during real-time scanning and on images saved.
[2019-01-24 15:06] LABS: Amorphous Sediment,Urine Occasional /hpf; Appearance,Urine Turbid (Clear); Bilirubin,Urine Negative (Negative); Blood,Urine Negative (Negative); Color,Urine Yellow; Glucose,Urine (UA) Negative (Negative); Ketones,Urine Negative (Negative); Leukocyte Esterase,Urine Negative (Negative); Nitrite,Urine Negative (Negative); PH, Urine 8.5 (5.0-8.0); Protein,Urine Negative (Negative); Specific Gravity,Urine 1.014 (1.001-1.035); Urobilinogen,Urine <2.0 mg/dL (<2.0)
[2019-01-24 15:23] LABS: Basophils % (A) 0 %; Eosinophils # (A) 0.1 k/uL (0-0.7); Eosinophils % (A) 2 %; HCT 43.3 % (39.0-53.0); HGB 14.2 gm/dL (13.0-17.5); Lymphocytes # (A) 2.2 k/uL (1.0-4.8); Lymphocytes % (A) 27 %; MCH 29.3 pg (25.0-35.0); MCHC 32.9 g/dL (31.0-37.0); MCV 89.1 fL (80.0-100.0); Mean Platelet Volume 7.6; Monocytes # (A) 0.3 k/uL (0-1.0); Monocytes % (A) 4 %; Neutrophils # (A) 5.2 k/uL (1.3-7.7); Neutrophils % (A) 65 %; Platelet Count 241 k/uL (150-450); RBC 4.86 m/uL (4.30-5.90); RDW 12.6 % (11.5-15.5); WBC 7.9 k/uL (3.8-10.6)
[2019-01-24 15:27] LABS: ALT 34 U/L (21-72); AST 36 U/L (17-59); African American GFR (CKD) >90 (>60 ml/min/1.73 sqM); Albumin 4.7 g/dL (3.5-5.0); Alkaline Phosphatase 82 U/L (38-126); Anion Gap 7 mmol/L; Blood Urea Nitrogen 13 mg/dL (9-20); Carbon Dioxide 30 mmol/L (22-30); Chloride 104 mmol/L (98-107); Glucose 91 mg/dL (74-99); Sodium 141 mmol/L (137-145); Total Bilirubin 0.4 mg/dL (0.2-1.3); Total Protein 7.2 g/dL (6.3-8.2)
[2019-01-24 16:17] VITALS: BP 109/74; PULSE 89; RESP 16
--- NOTE | 2019-01-24 16:21 | ED ---
Abdominal Pain HPI - General Chief Complaint: Abdominal Pain Stated Complaint: MALE Source: patient Mode of arrival: ambulatory Limitations: no limitations - History of Present Illness Initial Comments: 23-year-old male presents emergency department for evaluation of right groin mass. Patient states he was doing a lot of heavy lifting Thursday. He states that last night he was burning sensations right groin. Patient states she noted noticed a bulge increases with coughing or lifting. Patient denies any severe pain he states when he is resting and there is no pain. Patient states he is having normal bowel movements. Denies any bloody melanotic stools. Patient denies any vomiting. Patient has a testicular swelling or pain. Patient denies any other complaints. Upon arrival patient appears well signs of acute distress. Patient is concerned that he had a hernia. - Related Data Home Medications Medication Instructions Recorded Confirmed No Known Home Medications 01/24/19 01/24/19 Allergies Allergy/AdvReac Type Severity Reaction Status Date / Time bee pollen Allergy Unknown Verified 01/24/19 13:18 fluoxetine Allergy Anaphylaxis Verified 01/24/19 13:18 hydrocodone [From [place]] Allergy Rash/Hives Verified 01/24/19 13:18 lamotrigine [From Lamictal] Allergy Anaphylaxis Verified 01/24/19 13:18 latex Allergy Unknown Verified 01/24/19 13:18 Review of Systems ROS Statement: Those systems with pertinent positive or pertinent negative responses have been documented in the HPI. ROS Other: All systems not noted in ROS Statement are negative. Past Medical History Past Medical History: Asthma Additional Past Medical History / Comment(s): "heart palpatations" the patient states he has a history of numerous episodes of otitis media in the past History of Any Multi-Drug Resistant Organisms: None Reported Past Surgical History: Ear Surgery Additional Past Surgical History / Comment(s): "tubes in ears" Past Psychological History: Bipolar, Depression Smoking Status: Former smoker Past Alcohol Use History: Occasional Past Drug Use History: None Reported General Exam - General Exam Comments Initial Comments: General: The patient is awake and alert, in no distress, and does not appear acutely ill. Eye: Pupils are equal, round and reactive to light, extra-ocular movements are intact. No nystagmus. There is normal conjunctiva bilaterally. No signs of icterus. Cardiovascular: There is a regular rate and rhythm. No murmur, rub or gallop is appreciated. Respiratory: Lungs are clear to auscultation, respirations are non-labored, breath sounds are equal. No wheezes, stridor, rales, or rhonchi. Gastrointestinal: Soft, non-distended, non-tender abdomen without masses or organomegaly noted. There is no rebound or guarding present. Patient has a nontender mass in the right groin region. There is no palpable indirect or direct hernia on scrotal examination. Cremasteric reflex intact no tenderness to palpation or swelling of the testicles. Mass increases in size with bearing down. Musculoskeletal: Normal ROM, no tenderness. Strength 5/5. Sensation intact. Pulses equal bilaterally 2+. Neurological: A&O x 3. CN II-XII intact grossly, There are no obvious motor or sensory deficits. Coordination appears grossly intact. Speech is normal. Skin: Skin is warm and dry and no rashes or lesions are noted. Psychiatric: Cooperative, appropriate mood & affect, normal judgment. Limitations: no limitations Course Vital Signs 01/24/19 01/24/19 01/24/19 12:44 16:14 16:34 Temperature 98.2 F 98.2 F Pulse Rate 85 89 89 Respiratory 20 16 16 Rate Blood Pressure 124/78 109/74 109/74 O2 Sat by Pulse 99 97 97 Oximetry Medical Decision Making - Medical Decision Making 23-year-old male presents emergency department for evaluation of right groin mass. There is evidence of a right inguinal hernia containing bowel on ultrasound. Patient has no pain at rest. Mild tenderness to palpation. No elevation of lactic acid. No leukocytosis. Normal bowel movement this morning without change. Surgery was consulted. By my attending provider Dr. Farah who recommended discharge with outpatient f/u tomorrow in office. Patient agr eeable to care plan and return parameters. Discharged appearing wel. - Lab Data Result diagrams: 01/24/19 14:57 01/24/19 14:57 Lab Results 01/24/19 01/24/19 01/24/19 Range/Units 14:44 14:57 14:57 WBC 7.9 (3.8-10.6) k/uL RBC 4.86 (4.30-5.90) m/uL Hgb 14.2 (13.0-17.5) gm/dL Hct 43.3 (39.0-53.0) % MCV 89.1 (80.0-100.0) fL MCH 29.3 (25.0-35.0) pg MCHC 32.9 (31.0-37.0) g/dL RDW 12.6 (11.5-15.5) % Plt Count 241 (150-450) k/uL Neutrophils % 65 % Lymphocytes % 27 % Monocytes % 4 % Eosinophils % 2 % Basophils % 0 % Neutrophils # 5.2 (1.3-7.7) k/uL Lymphocytes # 2.2 (1.0-4.8) k/uL Monocytes # 0.3 (0-1.0) k/uL Eosinophils # 0.1 (0-0.7) k/uL Basophils # 0.0 (0-0.2) k/uL Sodium 141 (137-145) mmol/L Potassium 4.0 (3.5-5.1) mmol/L Chloride 104 (98-107) mmol/L Carbon Dioxide 30 (22-30) mmol/L Anion Gap 7 mmol/L BUN 13 (9-20) mg/dL Creatinine 0.90 (0.66-1.25) mg/dL Est GFR (CKD-EPI)AfAm >90 (>60 ml/min/1.73 sqM) Est GFR (CKD-EPI)NonAf >90 (>60 ml/min/1.73 sqM) Glucose 91 (74-99) mg/dL Plasma Lactic Acid Damon (0.7-2.0) mmol/L Calcium 10.0 (8.4-10.2) mg/dL Total Bilirubin 0.4 (0.2-1.3) mg/dL AST 36 (17-59) U/L ALT 34 (21-72) U/L Alkaline Phosphatase 82 (38-126) U/L Total Protein 7.2 (6.3-8.2) g/dL Albumin 4.7 (3.5-5.0) g/dL Urine Color Yellow Urine Appearance Turbid (Clear) Urine pH 8.5 H (5.0-8.0) Ur Specific [place] 1.014 (1.001-1.035) Urine Protein Negative (Negative) Urine Glucose (UA) Negative (Negative) Urine Ketones Negative (Negative) Urine Blood Negative (Negative) Urine Nitrite Negative (Negative) Urine Bilirubin Negative (Negative) Urine Urobilinogen <2.0 (<2.0) mg/dL Ur Leukocyte Esterase Negative (Negative) Amorphous Sediment Occasional H (None) /hpf 01/24/19 Range/Units 14:57 WBC (3.8-10.6) k/uL RBC (4.30-5.90) m/uL Hgb (13.0-17.5) gm/dL Hct (39.0-53.0) % MCV (80.0-100.0) fL MCH (25.0-35.0) pg MCHC (31.0-37.0) g/dL RDW (11.5-15.5) % Plt Count (150-450) k/uL Neutrophils % % Lymphocytes % % Monocytes % % Eosinophils % % Basophils % % Neutrophils # (1.3-7.7) k/uL Lymphocytes # (1.0-4.8) k/uL Monocytes # (0-1.0) k/uL Eosinophils # (0-0.7) k/uL Basophils # (0-0.2) k/uL Sodium (137-145) mmol/L Potassium (3.5-5.1) mmol/L Chloride (98-107) mmol/L Carbon Dioxide (22-30) mmol/L Anion Gap mmol/L BUN (9-20) mg/dL Creatinine (0.66-1.25) mg/dL Est GFR (CKD-EPI)AfAm (>60 ml/min/1.73 sqM) Est GFR (CKD-EPI)NonAf (>60 ml/min/1.73 sqM) Glucose (74-99) mg/dL Plasma Lactic Acid Damon 0.7 (0.7-2.0) mmol/L Calcium (8.4-10.2) mg/dL Total Bilirubin (0.2-1.3) mg/dL AST (17-59) U/L ALT (21-72) U/L Alkaline Phosphatase (38-126) U/L Total Protein (6.3-8.2) g/dL Albumin (3.5-5.0) g/dL Urine Color Urine Appearance (Clear) Urine pH (5.0-8.0) Ur Specific [place] (1.001-1.035) Urine Protein (Negative) Urine Glucose (UA) (Negative) Urine Ketones (Negative) Urine Blood (Negative) Urine Nitrite (Negative) Urine Bilirubin (Negative) Urine Urobilinogen (<2.0) mg/dL Ur Leukocyte Esterase (Negative) Amorphous Sediment (None) /hpf Disposition Clinical Impression: Right inguinal hernia Disposition: HOME SELF-CARE Condition: Good Instructions (If sedation given, give patient instructions): Inguinal Hernia (ED) Additional Instructions: Please use medication as discussed. Please follow-up with surgeon tomorrow. Please return to emergency room if the symptoms increase or worsen or for any other concerns-the patient, severe abdominal pain vomiting Is patient prescribed a controlled substance at d/c from ED?: No Referrals: Eduardo Andrade MD [STAFF PHYSICIAN] - 1-2 days None,Stated [Primary Care Provider] - 01/25/19 Time of Disposition: 16:20
== END 2019-01-24 16:37 | disposition home or self-care (01) ==
LOC: EC 12:25
DX: K40.90 Unilateral inguinal hernia, without obstruction or gangrene, not specified as recurrent (principal); Z87.891 Personal history of nicotine dependence; Z88.5 Allergy status to narcotic agent; Z88.8 Allergy status to other drugs, medicaments and biological substances; Z91.030 Bee allergy status; Z91.040 Latex allergy status
CPT/HCPCS: 36415; 80053; 81001; 83605; 85025; 99284

== ENCOUNTER 2019-02-01 07:11 | Day surgery (SDC) | payer OTHER ==
[2019-01-26 15:54] VITALS: BMI 17.9
[~2019-02-01 07:11] MED LIST: DEXAMETHASONE SOD PHOSPHATE 10 MG/ML 1 ML VIAL IV ONE; HEPARIN SODIUM,PORCINE 5,000 UNIT/ML 1 ML VIAL SQ ONE; SCOPOLAMINE 1.5MG/72HR PATCH TRANSDERM ONE
[2019-02-01] MEDS: LACTATED RINGERS 1,000 ML IV SCH ×2 (08:01→12:48)
[2019-02-01] MEDS ORDERED: LIDOCAINE 1% 20 ML VIAL (10MG/ML) FOR IV START INTRADERMA ONE (08:02)
[2019-02-01] MEDS: ONDANSETRON 4 MG/2 ML VIAL IVP ONE ×2 (08:04→11:33)
[2019-02-01] MEDS: MIDAZOLAM 2 MG/2 ML VIAL IV PRN ×2 (08:15→08:18)
--- NOTE | 2019-02-01 08:50 | P.ANPRN ---
Procedure Note - Anesthesia - Nerve Block Performed Bilateral Transversus Abdominis Single Time Out Performed: Yes Date of Procedure: 02/01/19 Procedure Start Time: :14 Procedure Stop Time: : Location of Patient Procedure: PreOp Indication: Acute Post-Operative Pain, Requested by Surgeon Sedation Type: Sedate with meaningful contact maintained Preparation: Sterile Prep, Sterile Dressing Position: Supine Catheter: None Needle Types: On-Q Needle Gauge: 20 Ultrasound used to visualize needle placement: Yes Ultrasound used to observe medication spread: Yes Injectate: Other (see comment) (Ropivacaine 0.25% 25 ml per side) Blood Aspirated: No Pain Paresthesia on Injection Noted: No Resistance on Injection: Normal Image Stored and Saved: Yes Events: Uneventful and Well Tolerated
--- NOTE | 2019-02-01 09:03 | P.GSHP ---
History of Present Illness H&P Date: 02/01/19 Chief Complaint: Bilateral inguinal hernia This is a 23-year-old male who presents today for laparoscopic robotic repair of bilateral inguinal hernia. He's had complaints of bilateral groin pain and mass. Past Medical History Past Medical History: Asthma, Chest Pain / Angina, Pneumonia Additional Past Medical History / Comment(s): Hx heart palpatations, hx chest pain 7 yrs ago. Hx numerous episodes of otitis media, hx pneumonia. History of Any Multi-Drug Resistant Organisms: None Reported Past Surgical History: Ear Surgery Additional Past Surgical History / Comment(s): Tubes in ears. Past Anesthesia/Blood Transfusion Reactions: No Reported Reaction Past Psychological History: Bipolar, Depression Smoking Status: Former smoker Past Alcohol Use History: Occasional Additional Past Alcohol Use History / Comment(s): Quit smoking 3 yrs ago, smoked for 10 yrs, 1 -1 1/2 PPD. Past Drug Use History: None Reported - Past Family History Mother Family Medical History: No Reported History Medications and Allergies Home Medications Medication Instructions Recorded Confirmed Type No Known Home Medications 01/24/19 02/01/19 History Allergies Allergy/AdvReac Type Severity Reaction Status Date / Time bee pollen Allergy Unknown Verified 02/01/19 07:40 fluoxetine Allergy Anaphylaxis Verified 02/01/19 07:40 hydrocodone [From [place]] Allergy Rash/Hives Verified 02/01/19 07:40 lamotrigine [From Lamictal] Allergy Anaphylaxis Verified 02/01/19 07:40 latex Allergy Rash/Hives Verified 02/01/19 07:40 Surgical - Exam Vital Signs Temp Pulse Resp BP Pulse Ox 97.9 F 64 16 112/65 97 02/01/19 07:41 02/01/19 07:41 02/01/19 07:41 02/01/19 07:41 02/01/19 07:41 - General well developed, well nourished, no distress - Eyes PERRL - ENT normal pinna - Neck no masses - Respiratory normal expansion - Cardiovascular Rhythm: regular - Abdomen Abdomen: soft, non tender Hernia: inguinal (Bilateral inguinal hernia) Assessment and Plan Assessment: Bilateral lower hernia. We'll perform laparoscopic robotic-assisted repair.
[2019-02-01] MEDS ORDERED: LIDOCAINE 1% INJ 10MG/ML (20 ML MDV) ONE (09:21)
[2019-02-01] MEDS ORDERED: PROPOFOL 10 MG/ML 20 ML VIAL IV ONE (09:21)
[2019-02-01] MEDS ORDERED: MIDAZOLAM 2 MG/2 ML VIAL ONE (09:21)
[2019-02-01] MEDS ORDERED: ROPIVACAINE 5 MG/ML 30 ML VIAL ONE (09:21)
[2019-02-01] MEDS ORDERED: NEOSTIGMINE 1 MG/ML 10 ML VIAL ONE (09:21)
[2019-02-01] MEDS ORDERED: fentaNYL (PF) 50 MCG/ML 2 ML AMP ONE (09:21)
[2019-02-01] MEDS ORDERED: GLYCOPYRROLATE 0.2 MG/ML 2 ML VIAL ONE (09:21)
[2019-02-01] MEDS ORDERED: ROCURONIUM BROMIDE 10 MG/ML 10 ML VIAL IV ONE (09:21)
[2019-02-01] MEDS ORDERED: KETAMINE 10 MG/ML 20 ML VIAL ONE (09:21)
[2019-02-01] MEDS ORDERED: BUPIVACAINE (PF) 0.25% 30 ML VIAL SQ ONE (09:39)
[2019-02-01 10:47] VITALS: TEMP 97.4
--- NOTE | 2019-02-01 11:11 | P.OP ---
Date of Procedure: 02/01/19 Preoperative Diagnosis: Bilateral inguinal hernia Postoperative Diagnosis: Bilateral inguinal hernia Procedure(s) Performed: Laparoscopic robotic repair of bilateral inguinal hernia Anesthesia: GELY Surgeon: Eduardo Andrade Estimated Blood Loss (ml): 5 Pathology: none sent Condition: stable Disposition: PACU Description of Procedure: The patient's placed on the operating table in the supine position. The patient received general anesthesia. The patient's abdomen was prepped and draped in usual sterile fashion. The skin was anesthetized 1% local Xylocaine at the incision sites. Using an 11 blade a skin incision was made at the umbilicus. The fascia was grasped with a [place] and then the peritoneal cavity was entered with the Veress needle. Position of the Veress needle was confirmed with a positive drop test. After adequate insufflation a 5 mm trocar was placed into the peritoneal cavity. The Laparoscope was placed the peritoneal cavity. And a robotic 8 mm trocar was placed in the right lateral position and then another 8 mm robotic trochars placed in the left lateral position. The original 5 mm trocar was exchanged for a 12 mm trocar. The patient was placed in reverse Trendelenburg and then the patient was docked to the robot. Next the peritoneum over top of the right inguinal hernia was incised and then using blunt and sharp dissection and electrocautery the hernia sac was dissected free from the floor of the inguinal canal. The hernia sac was completely reduced into the peritoneal cavity. And then using the [employer] consultant mesh the hernia was repaired. The peritoneum was then sutured with 20V lock suture. Next the peritoneum over top of the left inguinal hernia was incised and then using blunt and sharp dissection and electrocautery the hernia sac was dissected free from the floor of the inguinal canal. The hernia sac was completely reduced into the peritoneal cavity. And then using the [employer] consultant mesh the hernia was repaired. The peritoneum was then sutured with 20V lock suture. The patient was then undocked the robot. The needle was withdrawn from the peritoneal cavity. The umbilical trocar site was closed with 0 Ethibond suture. The skin was closed interrupted 3-0 Monocryl suture. Dermabond dressing was applied. Patient was sent to recovery in stable condition.
[2019-02-01] MEDS: fentaNYL (PF) 50 MCG/ML 2 ML AMP IV PRN ×2 (11:15→11:18)
[2019-02-01] MEDS ORDERED: HYDROcodone/APAP 5-325MG 1 EACH TAB PO ONE (13:40)
[2019-02-01 14:21] VITALS: BP 128/76; PULSE 68; RESP 18
== END 2019-02-01 15:22 | disposition home or self-care (01) ==
LOC: OR 07:11
PROVIDERS: ATTEND Surgery
DX: K40.20 Bilateral inguinal hernia, without obstruction or gangrene, not specified as recurrent (principal); J45.909 Unspecified asthma, uncomplicated; F31.9 Bipolar disorder, unspecified; R00.2 Palpitations; Z87.891 Personal history of nicotine dependence; Z88.5 Allergy status to narcotic agent; Z88.8 Allergy status to other drugs, medicaments and biological substances; Z91.030 Bee allergy status; Z91.040 Latex allergy status
CPT/HCPCS: 49650; S2900; 64488

== ENCOUNTER 2019-02-01 21:09 | Emergency (ER) | payer OTHER ==
[2019-02-01 21:14] VITALS: RESP 18
--- NOTE | 2019-02-01 21:22 | ED ---
Abdominal Pain HPI - General Stated Complaint: Abdominal Pain Time Seen by Provider: 02/01/19 21:13 - History of Present Illness Initial Comments: Jhonny is a 23yo M who underwent laparoscopic bilateral inguinal hernia repair earlier today. Patient was subsequently discharged home and prescribed by mouth [place]. Patient has not taken a [place] and is taken one stool softener. Patient reports that since the surgery he has felt nauseated had no appetite had no by mouth intake therefore not taken any pain meds. He reports she's had progressively worsening mid abdominal pain. Patient states he has not passed gas or had a bowel movement since the procedure. This evening the pain became unbearable which prompted him to come back to the ER for reevaluation. Patient states that in the past she's been prescribed [place] for pain and despite taking it as prescribed overdosed requiring resuscitation with Narcan therefore he does not want take [place] for the pain. - Related Data Previous Rx's Medication Instructions Recorded Docusate [Colace] 100 mg PO BID #20 capsule 02/01/19 Allergies Allergy/AdvReac Type Severity Reaction Status Date / Time bee pollen Allergy Unknown Verified 02/01/19 21:18 fluoxetine Allergy Anaphylaxis Verified 02/01/19 21:18 hydrocodone [From [place]] Allergy Unknown Verified 02/01/19 21:18 lamotrigine [From Lamictal] Allergy Anaphylaxis Verified 02/01/19 21:18 latex Allergy Rash/Hives Verified 02/01/19 21:18 Review of Systems ROS Statement: Those systems with pertinent positive or pertinent negative responses have been documented in the HPI. ROS Other: All systems not noted in ROS Statement are negative. Past Medical History Past Medical History: Asthma, Chest Pain / Angina, Pneumonia Additional Past Medical History / Comment(s): Hx heart palpatations, hx chest pain 7 yrs ago. Hx numerous episodes of otitis media, hx pneumonia. History of Any Multi-Drug Resistant Organisms: None Reported Past Surgical History: Ear Surgery Additional Past Surgical History / Comment(s): Tubes in ears. Past Anesthesia/Blood Transfusion Reactions: No Reported Reaction Past Psychological History: Bipolar, Depression Smoking Status: Former smoker Past Alcohol Use History: Occasional Additional Past Alcohol Use History / Comment(s): Quit smoking 3 yrs ago, smoked for 10 yrs, 1 -1 1/2 PPD. Past Drug Use History: None Reported - Past Family History Mother Family Medical History: No Reported History General Exam - General Exam Comments Initial Comments: Physical Exam GENERAL: Patient is well-developed and well-nourished. Appears uncomfortable HENT: Normocephalic, Atraumatic. EYES: PERRL, EOMI PULMONARY: Unlabored respirations. No audible rales rhonchi or wheezing was noted. CARDIOVASCULAR: There is a regular rate and rhythm without any murmurs gallops or rubs. ABDOMEN: Dressed surgical incision on abdomen consistent with recent laparoscopic surgery No active bleeding from surgical incisions Abdomen is firm mildly tender consistent with recent surgery, there is crepitus consistent with air in the tissue SKIN: Surgical incisions with no signs of infection or bleeding : Deferred NEUROLOGIC: Patient is alert and oriented x3. Moving all extremities spontaneously MUSCULOSKELETAL: Normal extremities with adequate strength and full range of motion. No lower extremity swelling or edema. No calf tenderness. PSYCHIATRIC: Normal psychiatric evaluation. Course Vital Signs 02/01/19 02/01/19 21:10 22:09 Temperature 98.8 F Pulse Rate 71 78 Respiratory 18 18 Rate Blood Pressure 119/69 112/66 O2 Sat by Pulse 97 98 Oximetry Medical Decision Making - Lab Data Result diagrams: 02/01/19 21:45 02/01/19 21:45 Lab Results 02/01/19 02/01/19 02/01/19 Range/Units 21:45 21:45 21:45 WBC 12.3 H (3.8-10.6) k/uL RBC 4.87 (4.30-5.90) m/uL Hgb 14.5 (13.0-17.5) gm/dL Hct 42.8 (39.0-53.0) % MCV 87.9 (80.0-100.0) fL MCH 29.8 (25.0-35.0) pg MCHC 33.9 (31.0-37.0) g/dL RDW 12.6 (11.5-15.5) % Plt Count 260 (150-450) k/uL Neutrophils % 86 % Lymphocytes % 10 % Monocytes % 3 % Eosinophils % 0 % Basophils % 0 % Neutrophils # 10.5 H (1.3-7.7) k/uL Lymphocytes # 1.2 (1.0-4.8) k/uL Monocytes # 0.4 (0-1.0) k/uL Eosinophils # 0.0 (0-0.7) k/uL Basophils # 0.0 (0-0.2) k/uL Sodium 141 (137-145) mmol/L Potassium 4.0 (3.5-5.1) mmol/L Chloride 104 (98-107) mmol/L Carbon Dioxide 27 (22-30) mmol/L Anion Gap 10 mmol/L BUN 12 (9-20) mg/dL Creatinine 0.63 L (0.66-1.25) mg/dL Est GFR (CKD-EPI)AfAm >90 (>60 ml/min/1.73 sqM) Est GFR (CKD-EPI)NonAf >90 (>60 ml/min/1.73 sqM) Glucose 125 H (74-99) mg/dL Plasma Lactic Acid Damon 1.7 (0.7-2.0) mmol/L Calcium 9.5 (8.4-10.2) mg/dL Total Bilirubin 0.4 (0.2-1.3) mg/dL AST 27 (17-59) U/L ALT 31 (21-72) U/L Alkaline Phosphatase 66 (38-126) U/L Total Protein 6.7 (6.3-8.2) g/dL Albumin 4.3 (3.5-5.0) g/dL Lipase 67 (23-300) U/L Disposition Clinical Impression: Abdominal pain Disposition: HOME SELF-CARE Condition: Stable Instructions (If sedation given, give patient instructions): Abdominal Pain (ED) Additional Instructions: Drink plenty of fluids, make sure you're walking to encourage bowel activity. Contact Dr. Chapa's office tomorrow. Is patient prescribed a controlled substance at d/c from ED?: No Referrals: None,Stated [Primary Care Provider] - 1-2 days
[2019-02-01] MEDS ORDERED: SODIUM CHLORIDE 0.9% 1,000 ML IV STA (21:38)
[2019-02-01 22:03] LABS: ALT 31 U/L (21-72); AST 27 U/L (17-59); African American GFR (CKD) >90 (>60 ml/min/1.73 sqM); Albumin 4.3 g/dL (3.5-5.0); Alkaline Phosphatase 66 U/L (38-126); Anion Gap 10 mmol/L; Basophils % (A) 0 %; Blood Urea Nitrogen 12 mg/dL (9-20); Calcium 9.5 mg/dL (8.4-10.2); Carbon Dioxide 27 mmol/L (22-30); Chloride 104 mmol/L (98-107); Eosinophils % (A) 0 %; Glucose 125 mg/dL (74-99); HCT 42.8 % (39.0-53.0); HGB 14.5 gm/dL (13.0-17.5); Lymphocytes # (A) 1.2 k/uL (1.0-4.8); Lymphocytes % (A) 10 %; MCH 29.8 pg (25.0-35.0); MCHC 33.9 g/dL (31.0-37.0); MCV 87.9 fL (80.0-100.0); Mean Platelet Volume 7.1; Monocytes # (A) 0.4 k/uL (0-1.0); Monocytes % (A) 3 %; Neutrophils # (A) 10.5 k/uL (1.3-7.7); Neutrophils % (A) 86 %; Platelet Count 260 k/uL (150-450); RBC 4.87 m/uL (4.30-5.90); RDW 12.6 % (11.5-15.5); Sodium 141 mmol/L (137-145); Total Bilirubin 0.4 mg/dL (0.2-1.3); Total Protein 6.7 g/dL (6.3-8.2); WBC 12.3 k/uL (3.8-10.6)
--- NOTE | 2019-02-01 22:08 | XR ---
EXAMINATION TYPE: XR KUB DATE OF EXAM: 02/01/2019 COMPARISON: NONE HISTORY: Abdominal pain TECHNIQUE: 2 views upright FINDINGS: Bowel gas pattern is normal. There is no sign of intestinal obstruction or pneumoperitoneum . Fecal pattern is normal. There are no pathologic calcifications over the kidneys. Lung bases are cl ear. IMPRESSION: Nonacute abdomen.
[2019-02-01] MEDS ORDERED: ACET/COD 300 MG/30 MG STARTER PACK 6 TAB BTL PO STA (22:22)
[2019-02-01] MEDS ORDERED: MORPHINE SULFATE 4 MG/ML SYRINGE IVP STA (22:22)
[2019-02-01] MEDS ORDERED: ONDANSETRON 4 MG/2 ML VIAL IVP STA (22:23)
[2019-02-01] MEDS ORDERED: ONDANSETRON 4 MG ODT STARTER PACK 2 TAB BTL PO STA (22:24)
[2019-02-01 22:43] VITALS: BP 104/70; PULSE 80; TEMP 98.4
[2019-02-01 22:55] LABS: Appearance,Urine Clear (Clear); Bilirubin,Urine Negative (Negative); Blood,Urine Negative (Negative); Color,Urine Light Yellow; Glucose,Urine (UA) Negative (Negative); Ketones,Urine Negative (Negative); Leukocyte Esterase,Urine Negative (Negative); Nitrite,Urine Negative (Negative); PH, Urine 7.5 (5.0-8.0); Protein,Urine Negative (Negative); Specific Gravity,Urine 1.011 (1.001-1.035); Urobilinogen,Urine <2.0 mg/dL (<2.0)
== END 2019-02-01 22:47 | disposition home or self-care (01) ==
LOC: EC 21:09
DX: R10.9 Unspecified abdominal pain (principal); R11.0 Nausea; R63.0 Anorexia; Z87.891 Personal history of nicotine dependence; Z98.890 Other specified postprocedural states; Z87.19 Personal history of other diseases of the digestive system; Z91.048 Other nonmedicinal substance allergy status; Z88.8 Allergy status to other drugs, medicaments and biological substances; Z88.5 Allergy status to narcotic agent; Z91.040 Latex allergy status
CPT/HCPCS: 99285; 96374; 96375; 96361; 36415; 80053; 83605; 83690; 85025; 81003; 74018; J2270; J2405; S0119

== ENCOUNTER 2019-02-03 10:05 | Emergency (ER) | payer OTHER ==
[2019-02-03 10:12] VITALS: BP 115/76; PULSE 71; RESP 22; TEMP 98
--- NOTE | 2019-02-03 10:46 | ED ---
Abdominal Pain HPI - General Chief Complaint: Abdominal Pain Stated Complaint: Post Op Swelling Time Seen by Provider: 02/03/19 10:20 Source: patient Mode of arrival: ambulatory - History of Present Illness Initial Comments: Patient is a 23-year-old male presenting to the emergency department day to status post bilateral inguinal surgery presenting to emergency Department with a chief complaint of penis skin discoloration. Patient reports for the past 2 days he has developed mild skin discoloration on the penis but no pain. Patient does report mild numbness in the penis. Patient is able to urinate without issues. Patient denies hematuria or any penile discharge. Patient reports patient also reports throughout the day yesterday developed testicular swelling with mild pain which has now resolved. Patient reports the swelling typically occurs when he is in a standing position for prolonged periods of time. Patient does report intermittent nausea but no vomiting since the surgery. Patient does take [place] for pain. Patient has not had a bowel movement since the procedure but is passing flatus. Patient denies fevers or chills. - Related Data Previous Rx's Medication Instructions Recorded Docusate [Colace] 100 mg PO BID #20 capsule 02/01/19 Allergies Allergy/AdvReac Type Severity Reaction Status Date / Time bee pollen Allergy Unknown Verified 02/01/19 21:18 fluoxetine Allergy Anaphylaxis Verified 02/01/19 21:18 hydrocodone [From [place]] Allergy Unknown Verified 02/01/19 21:18 lamotrigine [From Lamictal] Allergy Anaphylaxis Verified 02/01/19 21:18 latex Allergy Rash/Hives Verified 02/01/19 21:18 Review of Systems ROS Statement: Those systems with pertinent positive or pertinent negative responses have been documented in the HPI. ROS Other: All systems not noted in ROS Statement are negative. Past Medical History Past Medical History: Asthma, Chest Pain / Angina, Pneumonia Additional Past Medical History / Comment(s): Hx heart palpatations, hx chest pain 7 yrs ago. Hx numerous episodes of otitis media, hx pneumonia. History of Any Multi-Drug Resistant Organisms: None Reported Past Surgical History: Ear Surgery, Hernia Repair Additional Past Surgical History / Comment(s): Tubes in ears. ingunial hernia repair in jan 2017 Past Anesthesia/Blood Transfusion Reactions: No Reported Reaction Past Psychological History: Bipolar, Depression Smoking Status: Former smoker Past Alcohol Use History: Occasional Past Drug Use History: None Reported - Past Family History Mother Family Medical History: No Reported History General Exam Limitations: no limitations General appearance: alert, in no apparent distress Head exam: Present: atraumatic, normocephalic, normal inspection Eye exam: Present: normal appearance Pupils: Present: normal accommodation ENT exam: Present: normal exam, mucous membranes moist, normal external ear exam Neck exam: Present: normal inspection, full ROM Respiratory exam: Present: normal lung sounds bilaterally Cardiovascular Exam: Present: regular rate, normal rhythm, normal heart sounds GI/Abdominal exam: Present: soft, tenderness (Tenderness at laparoscopic sites). Absent: rigid exam: Present: normal inspection, scrotal swelling (Mild scrotal swelling). Absent: testicular tenderness, other (No testicular pain) External exam: Present: other (Mild skin discoloration of the penis. No penile pain or discharge.). Absent: swelling Extremities exam: Present: normal inspection, full ROM Back exam: Present: normal inspection, full ROM Neurological exam: Present: alert, oriented X3 Psychiatric exam: Present: normal affect, normal mood Skin exam: Present: warm, intact, normal color Course Vital Signs 02/03/19 02/03/19 10:08 11:25 Temperature 98.0 F 98.0 F Pulse Rate 71 71 Respiratory 22 22 Rate Blood Pressure 115/76 115/76 O2 Sat by Pulse 97 97 Oximetry Medical Decision Making - Medical Decision Making Patient is a 23-year-old male presenting to the emergency department due to status post bilateral inguinal hernia repair with a chief complaint of abdominal pain and testicular swelling. Patient reports pain in the inguinal region along with discoloration of the penis but no pain. Patient reports she developed testicular swelling over the past 2 days that tends to increase throughout the day and is alleviated at night. Patient denies any testicular pain. Patient reports that he is able to urinate without any issues however he has not had a bowel movement but is passing flatus. Patient denies any fevers or chills. Physical examination there appears to be slightly purple discoloration of the penis with no pain, discharge or tenderness. There is mild testicular swelling. Surgical sites are healing well. Dr. Vera Garland was contacted and he personally examined the patient and advised them that these are normal post surgical physical findings. Strict return parameters were thoroughly discussed with patient was understanding and agreeable. Case discussed with physician. Disposition Clinical Impression: Postoperative pain, Abdominal pain Disposition: HOME SELF-CARE Condition: Stable Instructions (If sedation given, give patient instructions): Abdominal Pain (ED) Additional Instructions: Please follow-up with your general surgeon. Please return to emergency department if symptoms worsen. Continue taking stool softeners for constipation. Is patient prescribed a controlled substance at d/c from ED?: No Referrals: Starr Porras MD [Primary Care Provider] - 1-2 days Time of Disposition: 11:20
[2019-02-03] MEDS ORDERED: ACET/COD 300 MG/30 MG STARTER PACK 6 TAB BTL PO STA (11:27)
== END 2019-02-03 11:34 | disposition home or self-care (01) ==
LOC: EC 10:05
DX: G89.18 Other acute postprocedural pain (principal); R10.30 Lower abdominal pain, unspecified; N50.89 Other specified disorders of the male genital organs; R23.8 Other skin changes; R20.0 Anesthesia of skin; Z87.891 Personal history of nicotine dependence; Z98.890 Other specified postprocedural states; Z91.048 Other nonmedicinal substance allergy status; Z88.8 Allergy status to other drugs, medicaments and biological substances; Z88.5 Allergy status to narcotic agent; Z91.040 Latex allergy status
CPT/HCPCS: 99283

== ENCOUNTER 2019-02-23 16:22 | Emergency (ER) | payer OTHER ==
--- NOTE | 2019-02-23 18:28 | US ---
EXAMINATION TYPE: US groin RT DATE OF EXAM: 02/23/2019 COMPARISON: US 2019 CLINICAL HISTORY: s/p hernia repair, pain. Right groin hernia repair 3 weeks ago, right groin pain an d lump x 1 week Right groin at palpable/painful area over previous hernia repair site: 0.7cm peristalsing area seen t hat appears to protrude through inguinal canal IMPRESSION: 1. Postsurgical changes right inguinal region. However, there is also a peristalsing structure at thi s level suggesting re-herniation at this level.
--- NOTE | 2019-02-23 19:00 | ED ---
Abdominal Pain HPI - General Chief Complaint: Abdominal Pain Stated Complaint: poss hernia Time Seen by Provider: 02/23/19 17:23 Source: patient Mode of arrival: ambulatory Limitations: no limitations - History of Present Illness Initial Comments: Patient is a 24-year-old male presenting to emergency Department with complaints of right inguinal pain x 1 week. Patient had bilateral inguinal hernia repair done by Dr. Andrade 3 weeks ago. Patient states he had a larger hernia on the right side compared to the left side. Patient states he was recovering well and has been doing light duty at work. Approximately one week ago patient noticed a small bulge in the right inguinal area and was concerned that hernia has returned. The bulge is painful to the touch. Patient denies any fever, nausea, vomiting. Patient has been having regular bowel movements. Patient has no other complaints at this time. Upon arrival to the ER, vital signs are stable. - Related Data Previous Rx's Medication Instructions Recorded Docusate [Colace] 100 mg PO BID #20 capsule 02/01/19 Allergies Allergy/AdvReac Type Severity Reaction Status Date / Time bee pollen Allergy Unknown Verified 02/23/19 16:43 fluoxetine Allergy Anaphylaxis Verified 02/23/19 16:43 hydrocodone [From [place]] Allergy Unknown Verified 02/23/19 16:43 lamotrigine [From Lamictal] Allergy Anaphylaxis Verified 02/23/19 16:43 latex Allergy Rash/Hives Verified 02/23/19 16:43 Review of Systems ROS Statement: Those systems with pertinent positive or pertinent negative responses have been documented in the HPI. ROS Other: All systems not noted in ROS Statement are negative. Past Medical History Past Medical History: Asthma, Chest Pain / Angina, Pneumonia Additional Past Medical History / Comment(s): Hx heart palpatations, hx chest pain 7 yrs ago. Hx numerous episodes of otitis media, hx pneumonia. History of Any Multi-Drug Resistant Organisms: None Reported Past Surgical History: Ear Surgery, Hernia Repair Additional Past Surgical History / Comment(s): Tubes in ears. ingunial hernia repair in jan 2017 Past Anesthesia/Blood Transfusion Reactions: No Reported Reaction Past Psychological History: Bipolar, Depression Smoking Status: Former smoker Past Alcohol Use History: Occasional Past Drug Use History: None Reported - Past Family History Mother Family Medical History: No Reported History General Exam - General Exam Comments Initial Comments: GENERAL: Well-appearing, well-nourished and in no acute distress. HEAD: Atraumatic, normocephalic. EYES: Pupils equal round and reactive to light, extraocular movements intact, sclera anicteric, conjunctiva are normal. ENT: Moist mucous membranes. NECK: Normal range of motion. LUNGS: Breath sounds clear to auscultation bilaterally and equal. No wheezes rales or rhonchi. HEART: Regular rate and rhythm without murmurs, rubs or gallops. ABDOMEN: Pain with palpation of the right inguinal area, there is a small hard bulge abou t the size of a marble in the inguinal canal. The hernia is reducible. No other abdominal pain is found. Soft, normoactive bowel sounds. No guarding, no rebound. : Deferred EXTREMITIES: Normal range of motion, no pitting or edema. No clubbing or cyanosis. NEUROLOGICAL: Normal speech, normal gait. PSYCH: Normal mood, normal affect. SKIN: Warm, Dry, normal turgor, no rashes or lesions noted. Limitations: no limitations Course Vital Signs 02/23/19 02/23/19 16:41 19:17 Temperature 99.1 F 97.3 F L Pulse Rate 92 72 Respiratory 16 18 Rate Blood Pressure 121/73 108/75 O2 Sat by Pulse 98 97 Oximetry Medical Decision Making - Medical Decision Making Patient is a 24-year-old male presenting with right inguinal pain times one week. Patient had recent bilateral inguinal hernia repairs done by Dr. Andrade 3 weeks ago. Patient states he thinks the right sided hernia has returned. On exam patient has a painful small bulge in the right inguinal canal. Right groin ultrasound shows a peristalsing area suggesting a reherniation. Hernia is reducible. Patient is stable for discharge at this time. Patient will follow- up with Dr. Andrade for further treatment. Patient is in agreement with this plan of care. Return parameters were discussed with the patient and he verbalized understanding. Case discussed with Dr. Amaya. Disposition Clinical Impression: Right inguinal hernia Disposition: HOME SELF-CARE Condition: Stable Instructions (If sedation given, give patient instructions): Inguinal Hernia (ED) Additional Instructions: Please return to the Emergency Department if symptoms worsen or any other concerns. Follow-up with Dr. Andrade as discussed. No heavy lifting, squatting. Use pillow against abdomen while having a bowel movement or coughing. Is patient prescribed a controlled substance at d/c from ED?: No Referrals: Starr Porras MD [Primary Care Provider] - 1-2 days Eduardo Andrade MD [STAFF PHYSICIAN] - 1-2 days
[2019-02-23 19:18] VITALS: BP 108/75; PULSE 72; RESP 18; TEMP 97.3
== END 2019-02-23 19:18 | disposition home or self-care (01) ==
LOC: EC 16:22
DX: K40.90 Unilateral inguinal hernia, without obstruction or gangrene, not specified as recurrent (principal); Z98.890 Other specified postprocedural states; Z87.891 Personal history of nicotine dependence; Z91.048 Other nonmedicinal substance allergy status; Z88.8 Allergy status to other drugs, medicaments and biological substances; Z88.5 Allergy status to narcotic agent; Z91.040 Latex allergy status
CPT/HCPCS: 99284

== ENCOUNTER 2019-10-18 09:09 | Emergency (ER) | payer OTHER ==
[2019-10-18 09:14] VITALS: BP 119/87; RESP 18; TEMP 97.4
[2019-10-18] MEDS ORDERED: diphenhydrAMINE 25 MG CAP PO STA (09:21)
[2019-10-18] MEDS ORDERED: DEXAMETHASONE 4 MG TAB PO STA (09:21)
[2019-10-18] MEDS ORDERED: FAMOTIDINE 20 MG TAB PO STA (09:21)
--- NOTE | 2019-10-18 09:27 | ED ---
General Adult HPI - General Chief complaint: Skin/Abscess/Foreign Body Stated complaint: rash Time Seen by Provider: 10/18/19 09:14 Source: patient Mode of arrival: ambulatory Limitations: no limitations - History of Present Illness Initial comments: Dictation was produced using [employer] dictation software. please excuse any grammatical, word or spelling errors. This patient was cared for during a federal and state declared state of emergency secondary to Covid 19 Chief Complaint: 24-year-old male presents with itchy rash that started in his leg History of Present Illness: 24-year-old male states that this morning he developed a itchy rash that started at his lower leg. He states that yesterday he was outside shooting a gun he just purchased. He was wearing pants at that time. This morning noticing that his right leg was itching. He started scratching. He was going to be evaluated at the [facility] however he looked back on his leg and the rash spread more proximally. He also started affecting his lower abdomen and lower back and right upper extremity. Patient denies any allergen exposure. He states that he is ALLERGIC to bee pollen and other medications. He has had anaphylaxis in the past. Denies any shortness of breath or belly pain. The emergency department he states that his rash improved. States it is really pruritic. He denies any abdominal pain. No dyspnea. Denies any sensation of his throat closing. Denies any recent changes in soaps, detergents. The ROS documented in this emergency department record has been reviewed and confirmed by me. Those systems with pertinent positive or negative responses have been documented in the HPI. All other systems are other negative and/or noncontributory. PHYSICAL EXAM: General Impression: Alert and oriented x3, not in acute distress HEENT: Normocephalic atraumatic, extra-ocular movements intact, pupils equal and reactive to light bilaterally, mucous membranes moist. Cardiovascular: Heart regular rate and rhythm Chest: Able to complete full sentences, no retractions, no tachypnea, no lung wheezing Abdomen: abdomen soft, non-tender, non-distended, no organomegaly Musculoskeletal: Pulses present and equal in all extremities, no peripheral edema Motor: no focal deficits noted Neurological: CN II-XII grossly intact, no focal motor or sensory deficits noted Skin: Urticarial rash to the right lower extremity anterior posteriorly, the groin, inguinal region, lower abdomen, lower back and proximal right upper extremity. No palmar rash. Conjunctival is clear. No oral lesions. Psych: Normal affect and mood ED course: 24-year-old male presents with clinical presentation consistent with urticarial rash. At this point it is not clear what caused patient to have this rash. Eyes upon arrival are within acceptable limits. Patient's well- appearing. He does not have any signs to suggest anaphylaxis. Patient given Decadron, Benadryl Pepcid. Patient a prescription for Atarax. Patient told to keep a diary of his symptoms and to see if he can identify any sort of lesions that's causing him to have urticaria. Patient told to seek medical attention if he develops symptoms of anaphylaxis. Otherwise patient is advised to follow-up with primary care physician. - Related Data Previous Rx's Medication Instructions Recorded Docusate [Colace] 100 mg PO BID #20 capsule 02/01/19 hydrOXYzine HCL [Atarax] 25 mg PO TID PRN #24 tab 10/18/19 Allergies Allergy/AdvReac Type Severity Reaction Status Date / Time bee pollen Allergy Unknown Verified 02/23/19 16:43 fluoxetine Allergy Anaphylaxis Verified 02/23/19 16:43 hydrocodone [From [place]] Allergy Unknown Verified 02/23/19 16:43 lamotrigine [From Lamictal] Allergy Anaphylaxis Verified 02/23/19 16:43 latex Allergy Rash/Hives Verified 02/23/19 16:43 Review of Systems ROS Statement: Those systems with pertinent positive or pertinent negative responses have been documented in the HPI. ROS Other: All systems not noted in ROS Statement are negative. Past Medical History Past Medical History: Asthma, Chest Pain / Angina, Pneumonia Additional Past Medical History / Comment(s): Hx heart palpatations, hx chest pain 7 yrs ago. Hx numerous episodes of otitis media, hx pneumonia. History of Any Multi-Drug Resistant Organisms: None Reported Past Surgical History: Ear Surgery, Hernia Repair Additional Past Surgical History / Comment(s): Tubes in ears. ingunial hernia repair in jan 2017 Past Anesthesia/Blood Transfusion Reactions: No Reported Reaction Past Psychological History: Bipolar, Depression Smoking Status: Former smoker Past Alcohol Use History: Occasional Past Drug Use History: None Reported - Past Family History Mother Family Medical History: No Reported History General Exam Limitations: no limitations Course Vital Signs 10/18/19 09:11 Temperature 97.4 F L Pulse Rate 96 Respiratory 18 Rate Blood Pressure 119/87 O2 Sat by Pulse 99 Oximetry Disposition Clinical Impression: Urticaria Disposition: HOME SELF-CARE Condition: Good Instructions (If sedation given, give patient instructions): Urticaria (ED) Additional Instructions: You were evaluated today for urticarial rash, not as hives. Please seek medical attention if he develops any shortness of breath, abdominal pain or sensation of throat closure. The symptoms would suggest anaphylaxis. It is my understanding that you have EpiPen's at home. If he develop any signs of anaphylaxis please administer 1 EpiPen to yourself and seek medical attention immediately. There are anti-itching medications that were sent to you preferred pharmacy for pickup. Prescriptions: hydrOXYzine HCL [Atarax] 25 mg PO TID PRN #24 tab PRN Reason: Itching Is patient prescribed a controlled substance at d/c from ED?: No Referrals: Starr Porras MD [Primary Care Provider] - 1-2 days Time of Disposition: 09:27
[2019-10-18 09:37] VITALS: PULSE 80
== END 2019-10-18 09:29 | disposition home or self-care (01) ==
LOC: EC 09:09
DX: L50.9 Urticaria, unspecified (principal); Z87.891 Personal history of nicotine dependence; Z91.030 Bee allergy status; Z88.5 Allergy status to narcotic agent; Z88.8 Allergy status to other drugs, medicaments and biological substances; Z91.040 Latex allergy status
CPT/HCPCS: 99282; J8540

== ENCOUNTER 2019-12-04 15:29 | Emergency (ER) | payer OTHER ==
[2019-12-04 15:35] VITALS: RESP 18
--- NOTE | 2019-12-04 16:06 | ED ---
General Adult HPI - General Chief complaint: Syncope Stated complaint: Syncope Time Seen by Provider: 12/04/19 15:49 Source: patient, EMS, RN notes reviewed Mode of arrival: EMS Limitations: no limitations - History of Present Illness Initial comments: Patient is a pleasant 24-year-old male presenting to the emergency Department with near syncopal episode. Episode occurred prior to arrival. Patient was sitting down talking with his . Patient states he has similar symptoms of headache proximal once a month. Patient states headaches to get this severe a couple of times per year. Patient has been having headaches since age 13, over 10 years. Patient states headache was somewhat severe and did have a quick onset. Patient states headache is mild at this time. Patient states episode of feeling like he was in the past lasted maybe 20 seconds or so and then resolved. Patient has not had the sensation of almost passing out previously. No chest pain or dyspnea. No palpitations. - Related Data Previous Rx's Medication Instructions Recorded Docusate [Colace] 100 mg PO BID #20 capsule 02/01/19 hydrOXYzine HCL [Atarax] 25 mg PO TID PRN #24 tab 10/18/19 Allergies Allergy/AdvReac Type Severity Reaction Status Date / Time bee pollen Allergy Unknown Verified 12/04/19 15:35 fluoxetine Allergy Anaphylaxis Verified 12/04/19 15:35 hydrocodone [From [place]] Allergy Unknown Verified 12/04/19 15:35 lamotrigine [From Lamictal] Allergy Anaphylaxis Verified 12/04/19 15:35 latex Allergy Rash/Hives Verified 12/04/19 15:35 Review of Systems ROS Statement: Those systems with pertinent positive or pertinent negative responses have been documented in the HPI. ROS Other: All systems not noted in ROS Statement are negative. Constitutional: Denies: fever Eyes: Denies: eye pain ENT: Denies: ear pain Respiratory: Denies: cough Cardiovascular: Denies: chest pain Endocrine: Denies: fatigue Gastrointestinal: Denies: abdominal pain Genitourinary: Denies: urgency Musculoskeletal: Denies: back pain Skin: Denies: rash Neurological: Reports: as per HPI, headache. Denies: weakness, numbness, paresthesias, confusion, vertigo Past Medical History Past Medical History: Asthma, Chest Pain / Angina, Pneumonia Additional Past Medical History / Comment(s): Hx heart palpatations, hx chest pain 7 yrs ago. Hx numerous episodes of otitis media, hx pneumonia. History of Any Multi-Drug Resistant Organisms: None Reported Past Surgical History: Ear Surgery, Hernia Repair Additional Past Surgical History / Comment(s): Tubes in ears. ingunial hernia repair in jan 2017 Past Anesthesia/Blood Transfusion Reactions: No Reported Reaction Past Psychological History: Bipolar, Depression Smoking Status: Never smoker Past Alcohol Use History: Occasional Past Drug Use History: None Reported - Past Family History Mother Family Medical History: No Reported History General Exam Limitations: no limitations General appearance: alert, in no apparent distress Head exam: Present: normocephalic Eye exam: Present: normal appearance, PERRL, EOMI. Absent: nystagmus ENT exam: Present: normal oropharynx Neck exam: Present: normal inspection Respiratory exam: Present: normal lung sounds bilaterally Cardiovascular Exam: Present: regular rate, normal rhythm GI/Abdominal exam: Present: soft. Absent: tenderness Extremities exam: Present: normal inspection, full ROM Neurological exam: Present: alert, oriented X3, CN II-XII intact. Absent: motor sensory deficit Expanded Neurological exam: Present: protecting the airway Speech: Present: fluid speech Cranial nerves: EOM's Intact: Normal, Facial Sensation: Normal Sensory exam: Upper Extremity Light Touch: Normal, Lower Extremity Light Touch: Normal Motor strength exam: RUE: 5, LUE: 5, RLE: 5, LLE: 5 Eye Response: (4) open spontaneously Motor Response: (6) obeys commands Verbal Response: (5) oriented Psychiatric exam: Present: normal affect, normal mood Skin exam: Present: normal color Course Vital Signs 12/04/19 15:31 Temperature 98.4 F Pulse Rate 82 Respiratory 18 Rate Blood Pressure 113/71 O2 Sat by Pulse 98 Oximetry EKG Findings - EKG Comments: EKG Findings:: Normal sinus rhythm 76. [place] 148. QRS 86. QT 374. QTC 420. Normal axis. Normal QRS. No acute ST change. Medical Decision Making - Medical Decision Making Patient reevaluated and resting comfortably in bed, symptom free. Patient updated on results - Lab Data Result diagrams: 12/04/19 16:16 12/04/19 16:16 Lab Results 12/04/19 12/04/19 12/04/19 Range/Units 16:16 16:16 16:16 WBC 8.2 (3.8-10.6) k/uL RBC 5.03 (4.30-5.90) m/uL Hgb 14.7 (13.0-17.5) gm/dL Hct 43.4 (39.0-53.0) % MCV 86.2 (80.0-100.0) fL MCH 29.3 (25.0-35.0) pg MCHC 34.0 (31.0-37.0) g/dL RDW 12.4 (11.5-15.5) % Plt Count 196 (150-450) k/uL Neutrophils % 77 % Lymphocytes % 16 % Monocytes % 4 % Eosinophils % 2 % Basophils % 1 % Neutrophils # 6.3 (1.3-7.7) k/uL Lymphocytes # 1.3 (1.0-4.8) k/uL Monocytes # 0.3 (0-1.0) k/uL Eosinophils # 0.1 (0-0.7) k/uL Basophils # 0.0 (0-0.2) k/uL PT 10.1 (9.0-12.0) sec INR 1.0 (<1.2) APTT 23.2 (22.0-30.0) sec Sodium (137-145) mmol/L Potassium (3.5-5.1) mmol/L Chloride (98-107) mmol/L Carbon Dioxide (22-30) mmol/L Anion Gap mmol/L BUN (9-20) mg/dL Creatinine (0.66-1.25) mg/dL Est GFR (CKD-EPI)AfAm (>60 ml/min/1.73 sqM) Est GFR (CKD-EPI)NonAf (>60 ml/min/1.73 sqM) Glucose (74-99) mg/dL Calcium (8.4-10.2) mg/dL Total Bilirubin (0.2-1.3) mg/dL AST (17-59) U/L ALT (4-49) U/L Alkaline Phosphatase (38-126) U/L Total Protein (6.3-8.2) g/dL Albumin (3.5-5.0) g/dL Urine Color Yellow Urine Appearance Clear (Clear) Urine pH 9.0 H (5.0-8.0) Ur Specific [place] 1.005 (1.001-1.035) Urine Protein Negative (Negative) Urine Glucose (UA) Negative (Negative) Urine Ketones Negative (Negative) Urine Blood Negative (Negative) Urine Nitrite Negative (Negative) Urine Bilirubin Negative (Negative) Urine Urobilinogen <2.0 (<2.0) mg/dL Ur Leukocyte Esterase Negative (Negative) 12/04/19 Range/Units 16:16 WBC (3.8-10.6) k/uL RBC (4.30-5.90) m/uL Hgb (13.0-17.5) gm/dL Hct (39.0-53.0) % MCV (80.0-100.0) fL MCH (25.0-35.0) pg MCHC (31.0-37.0) g/dL RDW (11.5-15.5) % Plt Count (150-450) k/uL Neutrophils % % Lymphocytes % % Monocytes % % Eosinophils % % Basophils % % Neutrophils # (1.3-7.7) k/uL Lymphocytes # (1.0-4.8) k/uL Monocytes # (0-1.0) k/uL Eosinophils # (0-0.7) k/uL Basophils # (0-0.2) k/uL PT (9.0-12.0) sec INR (<1.2) APTT (22.0-30.0) sec Sodium 139 (137-145) mmol/L Potassium 3.8 (3.5-5.1) mmol/L Chloride 106 (98-107) mmol/L Carbon Dioxide 27 (22-30) mmol/L Anion Gap 6 mmol/L BUN 10 (9-20) mg/dL Creatinine 0.64 L (0.66-1.25) mg/dL Est GFR (CKD-EPI)AfAm >90 (>60 ml/min/1.73 sqM) Est GFR (CKD-EPI)NonAf >90 (>60 ml/min/1.73 sqM) Glucose 97 (74-99) mg/dL Calcium 9.5 (8.4-10.2) mg/dL Total Bilirubin 0.4 (0.2-1.3) mg/dL AST 25 (17-59) U/L ALT 20 (4-49) U/L Alkaline Phosphatase 76 (38-126) U/L Total Protein 6.7 (6.3-8.2) g/dL Albumin 4.4 (3.5-5.0) g/dL Urine Color Urine Appearance (Clear) Urine pH (5.0-8.0) Ur Specific [place]ater (1.001-1.035) Urine Protein (Negative) Urine Glucose (UA) (Negative) Urine Ketones (Negative) Urine Blood (Negative) Urine Nitrite (Negative) Urine Bilirubin (Negative) Urine Urobilinogen (<2.0) mg/dL Ur Leukocyte Esterase (Negative) - Radiology Data Radiology results: report reviewed (Computed tomography scan of the brain and CT angios reveals no acute process) Disposition Clinical Impression: Near syncope, Cephalgia Disposition: HOME SELF-CARE Condition: Stable Instructions (If sedation given, give patient instructions): Near Syncope (ED), Acute Headache (ED) Additional Instructions: Please follow-up with primary care physician in the next couple days for recheck. Return for uncontrolled headaches, vomiting, weakness or confusion, worsening symptoms or other concerns. Is patient prescribed a controlled substance at d/c from ED?: No Referrals: Starr Porras MD [Primary Care Provider] - 1-2 days Time of Disposition: 17:39
[2019-12-04 16:29] LABS: Basophils % (A) 1 %; Eosinophils # (A) 0.1 k/uL (0-0.7); Eosinophils % (A) 2 %; HCT 43.4 % (39.0-53.0); HGB 14.7 gm/dL (13.0-17.5); Lymphocytes # (A) 1.3 k/uL (1.0-4.8); Lymphocytes % (A) 16 %; MCH 29.3 pg (25.0-35.0); MCV 86.2 fL (80.0-100.0); Mean Platelet Volume 7.7; Monocytes # (A) 0.3 k/uL (0-1.0); Monocytes % (A) 4 %; Neutrophils # (A) 6.3 k/uL (1.3-7.7); Neutrophils % (A) 77 %; Platelet Count 196 k/uL (150-450); RBC 5.03 m/uL (4.30-5.90); RDW 12.4 % (11.5-15.5); WBC 8.2 k/uL (3.8-10.6)
[2019-12-04 16:38] LABS: ALT 20 U/L (4-49); AST 25 U/L (17-59); African American GFR (CKD) >90 (>60 ml/min/1.73 sqM); Albumin 4.4 g/dL (3.5-5.0); Alkaline Phosphatase 76 U/L (38-126); Anion Gap 6 mmol/L; Blood Urea Nitrogen 10 mg/dL (9-20); Calcium 9.5 mg/dL (8.4-10.2); Carbon Dioxide 27 mmol/L (22-30); Chloride 106 mmol/L (98-107); Glucose 97 mg/dL (74-99); Non-African American GFR(CKD) >90 (>60 ml/min/1.73 sqM); Partial Thromboplastin Time 23.2 sec (22.0-30.0); Potassium 3.8 mmol/L (3.5-5.1); Prothrombin Time 10.1 sec (9.0-12.0); Sodium 139 mmol/L (137-145); Total Bilirubin 0.4 mg/dL (0.2-1.3); Total Protein 6.7 g/dL (6.3-8.2)
[2019-12-04 16:41] LABS: Appearance,Urine Clear (Clear); Color,Urine Yellow; Glucose,Urine (UA) Negative (Negative); Ketones,Urine Negative (Negative); Protein,Urine Negative (Negative); Specific Gravity,Urine 1.005 (1.001-1.035)
[2019-12-04 16:42] LABS: Bilirubin,Urine Negative (Negative); Blood,Urine Negative (Negative); Leukocyte Esterase,Urine Negative (Negative); Nitrite,Urine Negative (Negative); Urobilinogen,Urine <2.0 mg/dL (<2.0)
--- NOTE | 2019-12-04 17:12 | CT ---
EXAMINATION TYPE: CT brain wo con DATE OF EXAM: 12/04/2019 COMPARISON: 09/02/2018 HISTORY: [facility] CT DLP: 1161.8 mGycm Automated exposure control for dose reduction was used. Exam performed without contrast. Ventricles and sulci appear normal. There is no mass effect nor midline shift. There is no sign of in tracranial hemorrhage. The calvarium is intact. There is no evidence of cerebral edema. IMPRESSION: Negative unenhanced head CT scan. No change.
--- NOTE | 2019-12-04 17:15 | CT ---
EXAMINATION TYPE: CT angio head neck DATE OF EXAM: 12/04/2019 COMPARISON: None HISTORY: [facility] CT DLP: 343.1 mGycm Automated exposure control for dose reduction was used. CONTRAST: Performed with IV Contrast, patient injected with 65 mL of Isovue 370. Images were obtained from the aortic arch to the vertex of the brain with IV contrast and 3-D post pr ocessed images. There is normal branching pattern of the great vessels on the aortic arch. Subclavian arteries appear normal. There is arterial flow in the common internal and external carotid arteries bilaterally. The re is wide patency of the carotid artery bifurcations. There is bilateral arterial flow in the verteb ral arteries. There is arterial flow in the vertebrobasilar artery system. Left vertebral artery is l arger than the right. There is arterial flow in the anterior middle and posterior cerebral arteries. There is no mass effec t. There is no evidence of intracranial aneurysm or neovascularity. I see no evidence of intracranial arterial stenosis. There is no evidence of intracranial aneurysm. There is normal contrast opacifica tion of the venous sinuses. The remainder of exam is unremarkable. IMPRESSION: Negative CT angiogram of the neck. Negative CT angiogram of the brain.
[2019-12-04 17:40] VITALS: BP 118/62; PULSE 74; TEMP 98
== END 2019-12-04 17:46 | disposition home or self-care (01) ==
LOC: EC 15:29
DX: R55 Syncope and collapse (principal); R51 Headache; Z88.5 Allergy status to narcotic agent; Z88.8 Allergy status to other drugs, medicaments and biological substances; Z91.040 Latex allergy status; Z91.030 Bee allergy status
CPT/HCPCS: 36415; 93005; 80053; 85025; 85610; 85730; 81003; 70496; 70450; 70498; 99284; Q9967

== ENCOUNTER → 2019-12-19 | Outpatient (CLI) | payer OTHER ==
--- NOTE | 2019-12-19 10:09 | FL ---
EXAMINATION TYPE: FL barium swallow DATE OF EXAM: 12/19/2019 CLINICAL HISTORY: Cervical dysphagia, lump in throat for 2 weeks, worsens at night. Patient reports n janette congestion and runny nose. TECHNIQUE: A double contrast esophagram is performed utilizing air and barium. A total of 1 minute 4 seconds of fluoroscopic time was utilized during procedure. COMPARISON: None FINDINGS: The esophagus shows normal mucosal pattern, motility, and emptying into the stomach. No ev idence of hiatal hernia or stricture noted. No significant gastroesophageal reflux was seen during re al time performance of this study. IMPRESSION: No significant abnormality is seen to account for patient's symptoms.
== END | disposition home or self-care (01) ==
LOC: RADFLMAIN 09:09
PROVIDERS: ATTEND Family Medicine
DX: R13.19 Other dysphagia (principal)
CPT/HCPCS: 74220

== ENCOUNTER 2021-01-09 19:51 | Emergency (ER) | payer OTHER ==
[2021-01-09] MEDS ORDERED: ACETAMINOPHEN TAB 500 MG TAB PO STA (20:01)
[2021-01-09] MEDS ORDERED: KETOROLAC 15 MG/ML 1 ML VIAL IVP STA (20:20)
[2021-01-09] MEDS ORDERED: ONDANSETRON 4 MG/2 ML VIAL IVP STA (20:20)
[2021-01-09] MEDS ORDERED: SODIUM CHLORIDE 0.9% 1,000 ML IV STA (20:20)
[2021-01-09 20:59] LABS: Basophils % (A) 1 %; Eosinophils % (A) 1 %; HCT 40.3 % (39.0-53.0); Lymphocytes # (A) 0.3 k/uL (1.0-4.8); Lymphocytes % (A) 5 %; MCH 30.2 pg (25.0-35.0); MCHC 34.6 g/dL (31.0-37.0); MCV 87.3 fL (80.0-100.0); Mean Platelet Volume 8.7; Monocytes # (A) 0.5 k/uL (0-1.0); Monocytes % (A) 9 %; Neutrophils # (A) 4.6 k/uL (1.3-7.7); Neutrophils % (A) 84 %; Platelet Count 180 k/uL (150-450); RBC 4.62 m/uL (4.30-5.90); RDW 12.4 % (11.5-15.5); WBC 5.5 k/uL (3.8-10.6)
--- NOTE | 2021-01-09 21:04 | ED ---
Fever HPI - General Chief Complaint: Fever Stated Complaint: fever 103 Time Seen by Provider: 01/09/21 20:01 Source: patient Mode of arrival: ambulatory Limitations: no limitations - History of Present Illness Initial Comments: 25-year-old male presenting to the emergency department with a chief complaint of fever bodyaches and a headache. Patient reports the fever started at 8 AM this morning and has been persistent throughout the day. States he felt some nausea but denies any vomiting. States she also has photosensitivity from his recurrent migraines. Patient also reports night's developed a migraine. He reports generalized fatigue and weakness. He is not vaccinated for Covid. Patient denies any chest pain or shortness of breath but does report a nonproductive cough. He denies any rhinorrhea or otalgia but does report a mild sore throat. Denies any changes to his voice. Denies any changes to taste or smell. - Related Data Previous Rx's Medication Instructions Recorded Docusate [Colace] 100 mg PO BID #20 capsule 02/01/19 hydrOXYzine HCL [Atarax] 25 mg PO TID PRN #24 tab 10/18/19 Allergies Allergy/AdvReac Type Severity Reaction Status Date / Time bee pollen Allergy Unknown Verified 12/04/19 15:35 fluoxetine Allergy Anaphylaxis Verified 12/04/19 15:35 hydrocodone [From [place]] Allergy Unknown Verified 12/04/19 15:35 lamotrigine [From Lamictal] Allergy Anaphylaxis Verified 12/04/19 15:35 latex Allergy Rash/Hives Verified 12/04/19 15:35 Review of Systems ROS Statement: Those systems with pertinent positive or pertinent negative responses have been documented in the HPI. ROS Other: All systems not noted in ROS Statement are negative. Past Medical History Past Medical History: Asthma, Chest Pain / Angina, Pneumonia Additional Past Medical History / Comment(s): Hx heart palpatations, hx chest pain 7 yrs ago. Hx numerous episodes of otitis media, hx pneumonia. History of Any Multi-Drug Resistant Organisms: None Reported Past Surgical History: Ear Surgery, Hernia Repair Additional Past Surgical History / Comment(s): Tubes in ears. ingunial hernia repair in jan 2017 Past Anesthesia/Blood Transfusion Reactions: No Reported Reaction Past Psychological History: Bipolar, Depression Smoking Status: Never smoker Past Alcohol Use History: Occasional Past Drug Use History: None Reported - Past Family History Mother Family Medical History: No Reported History General Exam Limitations: no limitations General appearance: alert, in no apparent distress Head exam: Present: atraumatic, normocephalic, normal inspection Eye exam: Present: normal appearance, PERRL, EOMI Pupils: Present: normal accommodation ENT exam: Present: normal exam, normal oropharynx, mucous membranes moist Neck exam: Present: normal inspection, full ROM. Absent: tenderness Respiratory exam: Present: normal lung sounds bilaterally. Absent: respiratory distress, wheezes, rales, rhonchi, stridor, chest wall tenderness, accessory muscle use Cardiovascular Exam: Present: regular rate, normal rhythm, normal heart sounds. Absent: systolic murmur GI/Abdominal exam: Present: soft. Absent: distended, tenderness, guarding, rebound, rigid Extremities exam: Present: normal inspection, full ROM. Absent: tenderness Back exam: Present: normal inspection, full ROM. Absent: tenderness Neurological exam: Present: alert, oriented X3 Psychiatric exam: Present: normal affect Skin exam: Present: warm, dry, intact, normal color Course Vital Signs 01/09/21 19:56 Temperature 102.0 F H Pulse Rate 101 H Respiratory 20 Rate Blood Pressure 137/61 O2 Sat by Pulse 99 Oximetry Medical Decision Making - Medical Decision Making 25-year-old male presents to emergency room with a chief complaint of a fever. On physical examination, patient is well-appearing, resting comfortably bed. He is febrile and borderline tachycardic. Oxygen saturation 99% on room air. Lungs are clear to auscultation. Not Covid vaccinated. Positive for Covid. Patient given IV fluids. He will also be given a monoclonal antibody. Patient observed in the emergency department and will be discharged following that. Return parameters discussed the patient was understanding and agreeable. Advised to quarantine. Case discussed with physician. - Lab Data Lab Results 01/09/21 Range/Units 20:15 Coronavirus (PCR) Detected A (Not Detectd) Disposition Clinical Impression: COVID-19 Disposition: HOME SELF-CARE Condition: Stable Instructions (If sedation given, give patient instructions): Coronavirus Disease 2019 (COVID-19) Additional Instructions: Please return to the Emergency Department if symptoms worsen or any other concerns. Is patient prescribed a controlled substance at d/c from ED?: No Referrals: Starr Porras MD [Primary Care Provider] - 1-2 days Time of Disposition: 21:04
[2021-01-09 21:08] LABS: ALT 21 U/L (4-49); AST 26 U/L (17-59); African American GFR (CKD) >90 (>60 ml/min/1.73 sqM); Albumin 4.3 g/dL (3.5-5.0); Alkaline Phosphatase 64 U/L (38-126); Anion Gap 9 mmol/L; Blood Urea Nitrogen 11 mg/dL (9-20); Calcium 9.1 mg/dL (8.4-10.2); Carbon Dioxide 23 mmol/L (22-30); Chloride 104 mmol/L (98-107); Glucose 143 mg/dL (74-99); Non-African American GFR(CKD) >90 (>60 ml/min/1.73 sqM); Potassium 3.7 mmol/L (3.5-5.1); Sodium 136 mmol/L (137-145); Total Bilirubin 0.4 mg/dL (0.2-1.3); Total Protein 6.6 g/dL (6.3-8.2)
[2021-01-09] MEDS ORDERED: CASIRIVIMAB/IMDEVIMAB (EUA) 1,200 MG in SODIUM CHLORIDE 0.9% 100 ML IVPB ONE (21:15)
[2021-01-09] MEDS ORDERED: SODIUM CHLORIDE 0.9% 50 ML IVPB ONE (21:15)
--- NOTE | 2021-01-09 21:16 | XR ---
EXAMINATION TYPE: XR chest 2V DATE OF EXAM: 01/09/2021 COMPARISON: NONE HISTORY: Cough. TECHNIQUE: Frontal and lateral views of the chest are obtained. FINDINGS: There is no focal air space opacity, pleural effusion, or pneumothorax seen. The cardiac silhouette size is within normal limits. The osseous structures are intact. Mild Dextro convex curv ature of the midthoracic spine. IMPRESSION: No acute cardiopulmonary process.
[2021-01-09 22:26] VITALS: RESP 18
[2021-01-09 23:42] VITALS: BP 107/60; PULSE 83; TEMP 97.8
== END 2021-01-09 23:42 | disposition home or self-care (01) ==
LOC: EC 19:51
DX: U07.1 COVID-19 (principal); J45.909 Unspecified asthma, uncomplicated; Z91.040 Latex allergy status; Z91.030 Bee allergy status; Z88.8 Allergy status to other drugs, medicaments and biological substances; Z88.5 Allergy status to narcotic agent
CPT/HCPCS: 36415; 80053; 85025; 87635; 71046; 99285; 96365; 96375; 96361; J2405; J1885; Q0243

== ENCOUNTER 2021-05-15 19:23 | Emergency (ER) | payer OTHER ==
[2021-05-15 19:34] VITALS: BP 122/84; PULSE 100; RESP 20; TEMP 98.7
--- NOTE | 2021-05-15 19:52 | ED ---
General Adult HPI - General Chief complaint: Dental/Oral Stated complaint: Mouth Pain,Fever Time Seen by Provider: 05/15/21 19:40 Source: patient, family, RN notes reviewed Mode of arrival: ambulatory Limitations: no limitations - History of Present Illness Initial comments: 26-year-old well-appearing male presents to the emergency room with complaints of left lower wisdom tooth being removed on Thursday. He states that for the past 2 days he has had increasing pain. He did call his dentist and was prescribed antibiotics which he has in his truck but has not started taking them. He also called his primary care doctor and his primary care doctor referred him back to his dentist. Patient is here for second opinion as he states that it hurts to open his mouth. -: days(s) (2) Location: mouth (lower left tooth 17 removed) Severity scale (1-10): 6 Quality: aching Consistency: constant Improves with: none Worsens with: other (opening mouth) Treatments Prior to Arrival: none - Related Data Home Medications Medication Instructions Recorded Confirmed No Known Home Medications 01/09/21 01/09/21 Allergies Allergy/AdvReac Type Severity Reaction Status Date / Time bee pollen Allergy Unknown Verified 05/15/21 19:31 fluoxetine Allergy Anaphylaxis Verified 05/15/21 19:31 hydrocodone [From [place]] Allergy Unknown Verified 05/15/21 19:31 lamotrigine [From Lamictal] Allergy Anaphylaxis Verified 05/15/21 19:31 latex Allergy Rash/Hives Verified 05/15/21 19:31 Review of Systems ROS Statement: Those systems with pertinent positive or pertinent negative responses have been documented in the HPI. ROS Other: All systems not noted in ROS Statement are negative. Past Medical History Past Medical History: Asthma, Chest Pain / Angina, Pneumonia Additional Past Medical History / Comment(s): Hx heart palpatations, hx chest pain 7 yrs ago. Hx numerous episodes of otitis media, hx pneumonia. History of Any Multi-Drug Resistant Organisms: None Reported Past Surgical History: Ear Surgery, Hernia Repair Additional Past Surgical History / Comment(s): Tubes in ears. ingunial hernia repair in jan 2017 Past Anesthesia/Blood Transfusion Reactions: No Reported Reaction Past Psychological History: Bipolar, Depression Smoking Status: Never smoker Past Alcohol Use History: Occasional Past Drug Use History: None Reported - Past Family History Mother Family Medical History: No Reported History General Exam Limitations: no limitations General appearance: alert, in no apparent distress Head exam: Present: atraumatic, normocephalic, normal inspection Eye exam: Present: normal appearance ENT exam: Present: normal exam, normal oropharynx, mucous membranes moist Expanded Mouth exam: Present: normal external inspection, tongue normal, tongue elevation. Absent: drooling, trismus, muffled voice, laceration Teeth exam: Present: dental caries, dental tenderness # (#17 extracted swelling noted, no bleeding, no abscess noted) Throat exam: normal inspection. negative: tonsillar exudate Neck exam: Present: normal inspection, full ROM Cardiovascular Exam: Present: regular rate Neurological exam: Present: alert, oriented X3 Psychiatric exam: Present: normal affect, normal mood Skin exam: Present: warm, dry, intact, normal color. Absent: rash, cyanosis, diaphoretic Course Vital Signs 05/15/21 19:31 Temperature 98.7 F Pulse Rate 100 Respiratory 20 Rate Blood Pressure 122/84 O2 Sat by Pulse 97 Oximetry Medical Decision Making - Medical Decision Making Well-appearing 26-year-old male had a wisdom tooth #17 removed on Thursday. He developed complaints of pain of the dentist office they prescribed antibiotics h e has not started those antibiotics. Patient is afebrile in the emergency room. There is no evidence of dental abscess, no signs of lymphadenopathy no evidence of trismus. Patient was offered Tylenol or Motrin and declined. He was directed to start taking the antibiotics take Tylenol and/or Motrin alternating every 3 hours. Gentle rinse with warm salt water without spitting 2-3 times a day. Contact his dentist for an appointment next week for continuation of care. My attending is Dr. Mason. Disposition Clinical Impression: Pain, dental Disposition: HOME SELF-CARE Condition: Good Instructions (If sedation given, give patient instructions): Toothache (ED) Additional Instructions: Take antibiotics as prescribed by your dentist. You can take Tylenol and Motrin alternating every 3 hours. Use warm salt water rinses, let water float around in the mouth then fall out of mouth. Avoid spitting to prevent dislodging clot formation. Follow-up with your dentist next week. Return to the emergency room with increased pain or fevers. Is patient prescribed a controlled substance at d/c from ED?: No Referrals: Starr Porras MD [Primary Care Provider] - 1-2 days Time of Disposition: 19:52
== END 2021-05-15 20:07 | disposition home or self-care (01) ==
LOC: EC 19:23
DX: K02.9 Dental caries, unspecified (principal); J45.909 Unspecified asthma, uncomplicated; Z91.030 Bee allergy status; Z88.8 Allergy status to other drugs, medicaments and biological substances; Z91.040 Latex allergy status; Z88.5 Allergy status to narcotic agent
CPT/HCPCS: 99282

== ENCOUNTER 2021-10-20 14:29 | Emergency (ER) | payer OTHER ==
[2021-10-20 14:42] VITALS: BP 132/90; PULSE 81; RESP 16; TEMP 98.1
[2021-10-20] MEDS ORDERED: LIDOCAINE 1% INJ 10MG/ML (5 ML VIAL-PF) SQ ONE (14:48)
--- NOTE | 2021-10-20 14:51 | ED ---
Wound/Laceration HPI - General Chief Complaint: Wound/Laceration Stated Complaint: foot lac Time Seen by Provider: 10/20/21 14:44 Source: patient, EMS Mode of arrival: EMS Limitations: no limitations - History of Present Illness Initial Comments: Patient is a 26-year-old male who presents to the emergency Department laceration over right foot. He should states he was cutting wood with an ax when the ax slipped off toward and hit top of his right foot. Patient reports minimal pain. Last tetanus was 2 years ago. - Related Data Home Medications Medication Instructions Recorded Confirmed No Known Home Medications 01/09/21 01/09/21 Allergies Allergy/AdvReac Type Severity Reaction Status Date / Time bee pollen Allergy Unknown Verified 05/15/21 19:31 fluoxetine Allergy Anaphylaxis Verified 05/15/21 19:31 hydrocodone [From [place]] Allergy Unknown Verified 05/15/21 19:31 lamotrigine [From Lamictal] Allergy Anaphylaxis Verified 05/15/21 19:31 latex Allergy Rash/Hives Verified 05/15/21 19:31 Review of Systems ROS Statement: Those systems with pertinent positive or pertinent negative responses have been documented in the HPI. ROS Other: All systems not noted in ROS Statement are negative. Past Medical History Past Medical History: Asthma, Chest Pain / Angina, Pneumonia Additional Past Medical History / Comment(s): Hx heart palpatations, hx chest pain 7 yrs ago. Hx numerous episodes of otitis media, hx pneumonia. History of Any Multi-Drug Resistant Organisms: None Reported Past Surgical History: Ear Surgery, Hernia Repair Additional Past Surgical History / Comment(s): Tubes in ears. ingunial hernia repair in jan 2017 Past Anesthesia/Blood Transfusion Reactions: No Reported Reaction Past Psychological History: Bipolar, Depression Smoking Status: Never smoker Past Alcohol Use History: Occasional Past Drug Use History: None Reported - Past Family History Mother Family Medical History: No Reported History General Exam Limitations: no limitations General appearance: alert, in no apparent distress Head exam: Present: atraumatic, normocephalic, normal inspection Eye exam: Present: normal appearance, PERRL, EOMI. Absent: scleral icterus, c onjunctival injection, periorbital swelling Respiratory exam: Present: normal lung sounds bilaterally. Absent: respiratory distress, wheezes, rales, rhonchi, stridor Cardiovascular Exam: Present: regular rate, normal rhythm, normal heart sounds. Absent: systolic murmur, diastolic murmur, rubs, gallop, clicks GI/Abdominal exam: Present: soft, normal bowel sounds. Absent: distended, tenderness, guarding, rebound, rigid Extremities exam: Present: other (3 cm laceraton over dorsal right foot, no surrounding erythema, swelling, or ecchymosis ) Neurological exam: Present: alert, oriented X3, CN II-XII intact Psychiatric exam: Present: normal affect, normal mood Skin exam: Present: warm, dry, intact, normal color. Absent: rash Course Vital Signs 10/20/21 14:37 Temperature 98.1 F Pulse Rate 81 Respiratory 16 Rate Blood Pressure 132/90 O2 Sat by Pulse 99 Oximetry Procedures - Laceration Laceration #1 Consent Obtained: verbal consent Indication: laceration Site: foot (right) Size (cm): 3 Description: linear Depth: simple, single layer Anesthetic Used: lidocaine 1% Anesthesia Technique: local infiltration Pre-repair: wound explored, irrigated extensively Type of Sutures: nylon Size of Sutures: 4-0 Technique: simple, interrupted Patient Tolerated Procedure: well, no complications Medical Decision Making - Medical Decision Making This is a 26-year-old male who presents with right foot laceration. Thorough history and examination were performed. There is a 3 cm laceraton over the dorsal right foot, with no surrounding erythema, swelling, or ecchymosis. Patient has minimal pain over laceration. Imaging of the foot is not indicated at this time. The laceration was explored and irrigated thoroughly. It was well approximated with 3 sutures. Patient tolerated the procedure well with no complications. Wound care instruction provided in detail. Tetanus update not indicated. Patient to return for suture removal in 12-14 days. Return parameters discussed. Patient verbalizes understanding and is agreeable to this plan. Dr. Conn is my attending. Disposition Clinical Impression: Laceration Disposition: HOME SELF-CARE Condition: Good Instructions (If sedation given, give patient instructions): Care For Your Stitches (ED), Laceration (ED) Additional Instructions: Keep wound clean, dry, and uncovered. Avoid use of socks until suture removal. Take Tylenol or Motrin as needed for pain. Follow-up with primary care provider in one to 2 days. Return for suture removal in 12-14 days. Report back to the emergency department if you experience new, concerning, or worsening symptoms. Is patient prescribed a controlled substance at d/c from ED?: No Referrals: Starr Porras MD [Primary Care Provider] - 1-2 days
== END 2021-10-20 16:01 | disposition home or self-care (01) ==
LOC: EC 14:29
DX: S61.419A Laceration without foreign body of unspecified hand, initial encounter (principal); J45.909 Unspecified asthma, uncomplicated; Z91.030 Bee allergy status; Z88.8 Allergy status to other drugs, medicaments and biological substances; Z88.5 Allergy status to narcotic agent; Z91.040 Latex allergy status; W27.8XXA Contact with other nonpowered hand tool, initial encounter
CPT/HCPCS: 99283; J2001

== ENCOUNTER 2022-05-24 12:05 | Emergency (ER) | payer OTHER ==
[2022-05-24] MEDS ORDERED: ACETAMINOPHEN TAB 325 MG TAB PO STA (12:13)
[2022-05-24] MEDS ORDERED: LIDOCAINE 5% PATCH TOPICAL SCH (12:15)
--- NOTE | 2022-05-24 12:16 | ED ---
General Adult HPI - General Chief complaint: Chest Pain Stated complaint: Chest/back pain Time Seen by Provider: 05/24/22 12:13 Source: patient, RN notes reviewed Mode of arrival: ambulatory Limitations: no limitations - History of Present Illness Initial comments: 27-year-old male with no significant past medical history presents to the emergency department with a chief complaint of mid back pain. Patient reports that he was working on his car yesterday and ever since has had sharp mid back pain that comes and goes. He reports that it is worse with movement. He denies any recent trauma or falls or previous injury. Patient denies taking anything for pain for her symptoms. He denies any headache, fever, chills, shortness of breath, abdominal pain, nausea, vomiting, flank pain, dysuria, hematuria. Denies any saddle paresthesia, loss of bowel or bladder function, fevers. - Related Data Home Medications Medication Instructions Recorded Confirmed No Known Home Medications 01/09/21 01/09/21 Allergies Allergy/AdvReac Type Severity Reaction Status Date / Time bee pollen Allergy Unknown Verified 05/24/22 12:09 fluoxetine Allergy Anaphylaxis Verified 05/24/22 12:09 hydrocodone [From [place]] Allergy Unknown Verified 05/24/22 12:09 lamotrigine [From Lamictal] Allergy Anaphylaxis Verified 05/24/22 12:09 latex Allergy Rash/Hives Verified 05/24/22 12:09 Review of Systems ROS Statement: Those systems with pertinent positive or pertinent negative responses have been documented in the HPI. ROS Other: All systems not noted in ROS Statement are negative. Past Medical History Past Medical History: Asthma, Chest Pain / Angina, Pneumonia Additional Past Medical History / Comment(s): Hx heart palpatations, hx chest pain 7 yrs ago. Hx numerous episodes of otitis media, hx pneumonia. History of Any Multi-Drug Resistant Organisms: None Reported Past Surgical History: Ear Surgery, Hernia Repair Additional Past Surgical History / Comment(s): Tubes in ears. ingunial hernia repair in jan 2017 Past Anesthesia/Blood Transfusion Reactions: No Reported Reaction Past Psychological History: Bipolar, Depression Smoking Status: Never smoker Past Alcohol Use History: Occasional Past Drug Use History: None Reported - Past Family History Mother Family Medical History: No Reported History General Exam Limitations: no limitations General appearance: alert, in no apparent distress Head exam: Present: atraumatic, normocephalic, normal inspection Eye exam: Present: normal appearance, PERRL, EOMI. Absent: scleral icterus, conjunctival injection, periorbital swelling ENT exam: Present: normal exam, mucous membranes moist Neck exam: Present: normal inspection. Absent: tenderness, meningismus, lym phadenopathy Respiratory exam: Present: normal lung sounds bilaterally. Absent: respiratory distress, wheezes, rales, rhonchi, stridor Cardiovascular Exam: Present: regular rate, normal rhythm, normal heart sounds. Absent: systolic murmur, diastolic murmur, rubs, gallop, clicks GI/Abdominal exam: Present: soft, normal bowel sounds. Absent: distended, tenderness, guarding, rebound, rigid Extremities exam: Present: normal inspection, full ROM, normal capillary refill. Absent: tenderness, pedal edema, joint swelling, calf tenderness Back exam: Present: normal inspection, full ROM, tenderness, paraspinal tenderness (thoracic spine paraspinal tenderness, no step off ) Neurological exam: Present: alert, oriented X3, CN II-XII intact, normal gait, motor sensory deficit, reflexes normal Psychiatric exam: Present: normal affect, normal mood Skin exam: Present: warm, dry, intact, normal color. Absent: rash Course Vital Signs 05/24/22 05/24/22 05/24/22 12:06 12:26 12:28 Temperature 98 F Pulse Rate 91 85 Pulse Rate [ 92 Recruitment Coordinator ] Respiratory 20 17 Rate Blood Pressure 132/86 130/90 O2 Sat by Pulse 98 100 Oximetry - Reevaluation(s) Reevaluation #1: 05/24/22 12:58 Patient reevaluated. Patient reports symptomatic relief status post Tylenol administration. Patient agreeable with plan for discharge. EKG Findings - EKG Comments: EKG Findings:: I interpreted the following: EKG performed at 12:15. Rate is 80 bpm, sinus rhythm. MD 124, QRS duration 103, QT/QTc 343/379 Medical Decision Making - Medical Decision Making Was pt. sent in by a medical professional or institution (, PA, COMMERCIAL FOOD INSTRUCTOR, urgent care, hospital, or longterm...) When possible be specific @ -[No] Did you speak to anyone other than the patient for history (EMS, parent, family, police, friend...)? What history was obtained from this source @ -[No] Did you review nursing and triage notes (agree or disagree)? Why? @ -[I reviewed and agree with nursing and triage notes] Were old charts reviewed (outside hosp., previous admission, EMS record, old EKG, old radiological studies, urgent care reports/EKG's, longterm records)? Report findings @ -[No old charts were reviewed] Differential Diagnosis (chest pain, altered mental status, abdominal pain women, abdominal pain men, vaginal bleeding, weakness, fever, dyspnea, syncope, headache, dizziness, GI bleed, back pain, seizure, CVA, palpatations, mental health)? @ -[not applicable] EKG interpreted by me (3pts min.). @ -[As above] X-rays interpreted by me (1pt min.). @ - XR thoracic spine negative for evidence of fracture or dislocation CT interpreted by me (1pt min.). @ -[None done] U/S interpreted by me (1pt. min.). @ -[None done] What testing was considered but not performed or refused? (CT, X-rays, U/S, labs)? Why? @ -[None] What meds were considered but not given or refused? Why? @ -[None] Did you discuss the management of the patient with other professionals (pr ofessionals i.e. , PA, COMMERCIAL FOOD INSTRUCTOR, lab, RT, psych nurse, social worker psychiatric, computer assembler, teacher, customs officer, manager rn case)? Give summary @ -[No] Was smoking cessation discussed for >3mins.? @ -[No] Was critical care preformed (if so, how long)? @ -[No] Were there social determinants of health that impacted care today? How? (Homelessness, low income, unemployed, alcoholism, drug addiction, transportation, low edu. Level, literacy, decrease access to med. care, snf, rehab)? @ -[No] Was there de-escalation of care discussed even if they declined (Discuss DNR or withdrawal of care, Hospice)? DNR status @ -[No] What co-morbidities impacted this encounter? (DM, HTN, Smoking, COPD, CAD, Cancer, CVA, ARF, Chemo, Hep., AIDS, mental health diagnosis, sleep apnea, morbid obesity)? @ -[None] Was patient admitted / discharged? Hospital course, mention meds given and route, prescriptions, significant lab abnormalities, going to OR and other pertinent info. @ --27-year-old male to the emergency department with mid back pain. Patient had a history and physical performed. Physical exam is essentially unremarkable heart rate regular rate and rhythm, lung sounds clear to auscultation bilaterally abdomen soft and nontender, patient able to move all extremities freely. X-rays negative. He should was given Tylenol with symptomatic relief on the emergency department. Detail with the patient, patient verbalized understanding all questions were addressed. Patient was encouraged to follow up with primary care in 1-2 days. Return precautions were discussed. The patient was discharged in stable condition. I discussed the case with Dr. Rose [facility] who agrees with the plan of care Undiagnosed new problem with uncertain prognosis? @ -[No] Drug Therapy requiring intensive monitoring for toxicity (Heparin, Nitro, Insulin, Cardizem)? @ -[No] Were any procedures done? @ -[No] Diagnosis/symptom? @ -mechanical back pain Acute, or Chronic, or Acute on Chronic? @ -acute Uncomplicated (without systemic symptoms) or Complicated (systemic symptoms)? @ -uncomplicated Side effects of treatment? @ -[No] Exacerbation, Progression, or Severe Exacerbation? @ -[No] Poses a threat to life or bodily function? How? (Chest pain, [place], [place], pneumonia, PE, COPD, DKA, ARF, appy, cholecystitis, CVA, Diverticulitis, Homicidal, Suicidal, threat to staff... and all critical care pts) @ -[No] Disposition Clinical Impression: Mechanical back pain Disposition: HOME SELF-CARE Condition: Stable Instructions (If sedation given, give patient instructions): Back Pain (ED) Additional Instructions: Please return to the nearest emergency department if symptoms worsen or persist. Is patient prescribed a controlled substance at d/c from ED?: No Referrals: Starr Porras MD [Primary Care Provider] - 1-2 days Time of Disposition: 13:00
--- NOTE | 2022-05-24 12:54 | XR ---
EXAMINATION TYPE: XR thoracic spine 2V DATE OF EXAM: 05/24/2022 CLINICAL HISTORY: Mid back pain. TECHNIQUE: Frontal, lateral, and swimmer's view of thoracic spine are obtained. COMPARISON: None. FINDINGS: Thoracic spine show slight S-shaped scoliosis without evidence of acute fracture or disloca tion. Vertebral body heights and disc space heights are preserved. Visualized ribs are intact bilate rally. IMPRESSION: No acute fracture or dislocation is seen in the thoracic spine.
[2022-05-24 13:07] VITALS: BP 124/79; PULSE 95; RESP 16; TEMP 98.2
== END 2022-05-24 13:10 | disposition home or self-care (01) ==
LOC: EC 12:05
DX: M54.50 Low back pain, unspecified (principal); J45.909 Unspecified asthma, uncomplicated; F31.9 Bipolar disorder, unspecified; Z91.040 Latex allergy status; Z91.030 Bee allergy status; Z88.8 Allergy status to other drugs, medicaments and biological substances
CPT/HCPCS: 72070; 93005; 99285

== ENCOUNTER 2022-10-10 11:04 | Emergency (ER) | payer OTHER ==
[2022-10-10 11:27] VITALS: RESP 18; TEMP 98.9
--- NOTE | 2022-10-10 14:14 | ED ---
General Adult HPI - General Chief complaint: Headache Stated complaint: headache Time Seen by Provider: 10/10/22 11:49 Source: patient, RN notes reviewed Mode of arrival: ambulatory - History of Present Illness Initial comments: 27 year old male presents to the emergency department with chief complaint of headache and earache. He states that a virus has been going around his house and he had diarrhea and vomiting on Thursday. He reports that the symptoms improved and then he developed cough, headache, mild sore throat and earache over the last 1-2 days. He reports frequent ear infections. He denies any fever. - Related Data Previous Rx's Medication Instructions Recorded Amoxic-Pot Clav 875-125Mg 1 tab PO Q12HR #14 tab 10/10/22 [Augmentin 875-125] Allergies Allergy/AdvReac Type Severity Reaction Status Date / Time bee pollen Allergy Unknown Verified 10/10/22 12:23 fluoxetine Allergy Anaphylaxis Verified 10/10/22 12:23 hydrocodone [From [place]] Allergy SEE COMMENT Verified 10/10/22 12:23 lamotrigine [From Lamictal] Allergy Anaphylaxis Verified 10/10/22 12:23 latex Allergy Rash/Hives Verified 10/10/22 12:23 Review of Systems ROS Statement: Those systems with pertinent positive or pertinent negative responses have been documented in the HPI. ROS Other: All systems not noted in ROS Statement are negative. Past Medical History Past Medical History: Asthma, Chest Pain / Angina, Pneumonia Additional Past Medical History / Comment(s): Hx heart palpatations, hx chest pain 7 yrs ago. Hx numerous episodes of otitis media, hx pneumonia. History of Any Multi-Drug Resistant Organisms: None Reported Past Surgical History: Ear Surgery, Hernia Repair Additional Past Surgical History / Comment(s): Tubes in ears. ingunial hernia repair in jan 2017 Past Anesthesia/Blood Transfusion Reactions: No Reported Reaction Past Psychological History: Bipolar, Depression Smoking Status: Never smoker Past Alcohol Use History: Occasional Past Drug Use History: None Reported - Past Family History Mother Family Medical History: No Reported History General Exam Limitations: no limitations General appearance: alert, in no apparent distress Head exam: Present: atraumatic, normocephalic, normal inspection Eye exam: Present: normal appearance, PERRL, EOMI. Absent: scleral icterus, conjunctival injection, periorbital swelling ENT exam: Present: mucous membranes moist, normal external ear exam. Absent: TM's normal bilaterally (Bilateral erythematous TMs) Neck exam: Present: normal inspection, full ROM. Absent: tenderness, meningismus, lymphadenopathy Respiratory exam: Present: normal lung sounds bilaterally. Absent: respiratory distress, wheezes, rales, rhonchi, stridor Cardiovascular Exam: Present: regular rate, normal rhythm, normal heart sounds. Absent: systolic murmur, diastolic murmur, rubs, gallop, clicks GI/Abdominal exam: Present: soft, normal bowel sounds. Absent: distended, tenderness, guarding, rebound, rigid Extremities exam: Present: normal inspection, full ROM, normal capillary refill. Absent: tenderness, pedal edema, joint swelling, calf tenderness Back exam: Present: normal inspection Neurological exam: Present: alert, oriented X3, CN II-XII intact Psychiatric exam: Present: normal affect, normal mood Course Vital Signs 10/10/22 10/10/22 11:24 15:03 Temperature 98.9 F Pulse Rate 80 66 Respiratory 18 18 Rate Blood Pressure 125/87 105/85 O2 Sat by Pulse 98 99 Oximetry Medical Decision Making - Medical Decision Making Was pt. sent in by a medical professional or institution (, PA, WHIPPER, urgent care, hospital, or halfway...) When possible be specific @ -No Did you speak to anyone other than the patient for history (EMS, parent, family, police, friend...)? What history was obtained from this source @ -No Did you review nursing and triage notes (agree or disagree)? Why? @ -I reviewed and agree with nursing and triage notes Were old charts reviewed (outside hosp., previous admission, EMS record, old EKG, old radiological studies, urgent care reports/EKG's, halfway records)? Report findings @ -No old charts were reviewed Differential Diagnosis (chest pain, altered mental status, abdominal pain women, abdominal pain men, vaginal bleeding, weakness, fever, dyspnea, syncope, headache, dizziness, GI bleed, back pain, seizure, CVA, palpatations, mental health, musculoskeletal)? @ -not applicable EKG interpreted by me (3pts min.). @ -None X-rays interpreted by me (1pt min.). @ -None done CT interpreted by me (1pt min.). @ -None done U/S interpreted by me (1pt. min.). @ -None done What testing was considered but not performed or refused? (CT, X-rays, U/S, labs)? Why? @ -None What meds were considered but not given or refused? Why? @ -None Did you discuss the management of the patient with other professionals (pro fessionals i.e. , PA, WHIPPER, lab, RT, psych nurse, oncology social worker, school crossing guard supervisor, teacher, risk control officer, caser shoe parts)? Give summary @ -No Was smoking cessation discussed for >3mins.? @ -No Was critical care preformed (if so, how long)? @ -No Were there social determinants of health that impacted care today? How? (Homelessness, low income, unemployed, alcoholism, drug addiction, transportation, low edu. Level, literacy, decrease access to med. care, correction, rehab)? @ -No Was there de-escalation of care discussed even if they declined (Discuss DNR or withdrawal of care, Hospice)? DNR status @ -No What co-morbidities impacted this encounter? (DM, HTN, Smoking, COPD, CAD, Cancer, CVA, ARF, Chemo, Hep., AIDS, mental health diagnosis, sleep apnea, morbid obesity)? @ -None Was patient admitted / discharged? Hospital course, mention meds given and route, prescriptions, significant lab abnormalities, going to OR and other pertinent info. @ -Discharged. Patient presented to emergency department chief complaint of headache, earache 2 days. This is also associated with cough, sore throat and he reports his family has similar symptoms. Covid, influenza, RSV, strep test negative. Patient has bilateral erythematous, bulging TMs. patient likely has viral syndrome with associated otitis media. Otitis media treated with augmentin sent to patients pharmacy. Patient discharged in stable condition. Case discussed with my attending, Dr. Mason Undiagnosed new problem with uncertain prognosis? @ -No Drug Therapy requiring intensive monitoring for toxicity (Heparin, Nitro, Insulin, Cardizem)? @ -No Were any procedures done? @ -No Diagnosis/symptom? @ -Otitis media, bilateral Acute, or Chronic, or Acute on Chronic? @ -. Acute Uncomplicated (without systemic symptoms) or Complicated (systemic symptoms)? @ -Uncomplicated Side effects of treatment? @ -No Exacerbation, Progression, or Severe Exacerbation? @ -No Poses a threat to life or bodily function? How? (Chest pain, [place], [place], pneumonia, PE, COPD, DKA, ARF, appy, cholecystitis, CVA, Diverticulitis, Homicidal, Suicidal, threat to staff... and all critical care pts) @ -No - Lab Data Lab Results 10/10/22 10/10/22 Range/Units 12:27 12:27 Influenza Type A (PCR) Not Detected (Not Detectd) Influenza Type B (PCR) Not Detected (Not Detectd) RSV (PCR) Not Detected (Not Detectd) SARS-CoV-2 (PCR) Not Detected (Not Detectd) Group A Strep (PCR) NOT DETECTED (Not Detectd) Disposition Clinical Impression: Otitis media Disposition: HOME SELF-CARE Condition: Stable Instructions (If sedation given, give patient instructions): Earache (ED) Additional Instructions: Please return to the emergency department for new or worsening symptoms. Prescriptions: Amoxic-Pot Clav 875-125Mg [Augmentin 875-125] 1 tab PO Q12HR #14 tab Is patient prescribed a controlled substance at d/c from ED?: No Referrals: Starr Porras MD [Primary Care Provider] - 1-2 days Time of Disposition: 14:40
[2022-10-10 15:04] VITALS: BP 105/85; PULSE 66
== END 2022-10-10 15:04 | disposition home or self-care (01) ==
LOC: EC 11:04
DX: H66.90 Otitis media, unspecified, unspecified ear (principal); J45.909 Unspecified asthma, uncomplicated; Z88.8 Allergy status to other drugs, medicaments and biological substances; Z91.040 Latex allergy status; Z86.59 Personal history of other mental and behavioral disorders; Z20.822 Contact with and (suspected) exposure to COVID-19
CPT/HCPCS: 87636; 87651; 99284

== ENCOUNTER 2023-09-13 20:25 | Emergency (ER) | payer OTHER ==
[2023-09-13 21:56] VITALS: TEMP 98.1
--- NOTE | 2023-09-13 23:46 | ED ---
General Adult HPI - General Chief complaint: Upper Respiratory Infection Stated complaint: Pneumonia- bed bug exposure Time Seen by Provider: 09/13/23 21:58 Source: patient Mode of arrival: ambulatory Limitations: no limitations - History of Present Illness Initial comments: 28-year-old male presented to the ED with complaints of URI symptoms. Patient r eports for the past week has had cough, congestion. No fever or chills. No chest pain shortness of breath. Reports family has similar symptoms. Also notes that may have been exposed to bedbugs. No other complaints at this time. - Related Data Previous Rx's Medication Instructions Recorded Amoxic-Pot Clav 875-125Mg 1 tab PO Q12HR #14 tab 10/10/22 [Augmentin 875-125] Allergies Allergy/AdvReac Type Severity Reaction Status Date / Time bee pollen Allergy Unknown Verified 09/13/23 21:41 fluoxetine Allergy Anaphylaxis Verified 09/13/23 21:41 hydrocodone [From [place]] Allergy SEE COMMENT Verified 09/13/23 21:41 lamotrigine [From Lamictal] Allergy Anaphylaxis Verified 09/13/23 21:41 latex Allergy Rash/Hives Verified 09/13/23 21:41 Review of Systems ROS Statement: Those systems with pertinent positive or pertinent negative responses have been documented in the HPI. ROS Other: All systems not noted in ROS Statement are negative. Past Medical History Past Medical History: Asthma, Chest Pain / Angina, Pneumonia Additional Past Medical History / Comment(s): Hx heart palpatations, hx chest pain 7 yrs ago. Hx numerous episodes of otitis media, hx pneumonia. History of Any Multi-Drug Resistant Organisms: None Reported Past Surgical History: Ear Surgery, Hernia Repair Additional Past Surgical History / Comment(s): Tubes in ears. ingunial hernia repair in jan 2017 Past Anesthesia/Blood Transfusion Reactions: No Reported Reaction Past Psychological History: Bipolar, Depression Smoking Status: Never smoker Past Alcohol Use History: Occasional Past Drug Use History: None Reported - Past Family History Mother Family Medical History: No Reported History General Exam Limitations: no limitations General appearance: alert, in no apparent distress Eye exam: Present: normal appearance ENT exam: Present: normal oropharynx Neck exam: Present: normal inspection Respiratory exam: Present: normal lung sounds bilaterally Cardiovascular Exam: Present: regular rate GI/Abdominal exam: Present: soft, normal bowel sounds. Absent: distended, tenderness, guarding, rebound, rigid Neurological exam: Present: alert, oriented X3 Skin exam: Present: warm, dry Course Vital Signs 09/13/23 21:37 Temperature 98.1 F Pulse Rate 69 Respiratory 16 Rate Blood Pressure 134/80 O2 Sat by Pulse 98 Oximetry Medical Decision Making - Medical Decision Making Was pt. sent in by a medical professional or institution (, [facility], [employer], urgent care, hospital, or penitentiary...) When possible be specific @ -No Did you speak to anyone other than the patient for history (EMS, parent, family, police, friend...)? What history was obtained from this source @ -No Did you review nursing and triage notes (agree or disagree)? Why? @ -I reviewed and agree with nursing and triage notes Were old charts reviewed (outside hosp., previous admission, EMS record, old EKG, old radiological studies, urgent care reports/EKG's, penitentiary records)? Report findings @ -No old charts were reviewed Differential Diagnosis (chest pain, altered mental status, abdominal pain women, abdominal pain men, vaginal bleeding, weakness, fever, dyspnea, syncope, headache, dizziness, GI bleed, back pain, seizure, CVA, palpatations, mental health, musculoskeletal)? @ -Differential Dyspnea: Coronary syndrome, arrhythmia, tamponade, asthma, COPD, pulmonary embolism, pneumonia, pneumothorax, pulmonary effusion, anaphylaxis, diabetic ketoacidosis, flailed chest, pulmonary contusion, diaphragmatic rupture, anemia, neuromuscular, this is not meant to be an all-inclusive list. EKG interpreted by me (3pts min.). @ -As above X-rays interpreted by me (1pt min.). @ -Chest x-ray interpreted me which revealed no evidence of acute finding. CT interpreted by me (1pt min.). @ -None done U/S interpreted by me (1pt. min.). @ -None done What testing was considered but not performed or refused? (CT, X-rays, U/S, labs)? Why? @ -None What meds were considered but not given or refused? Why? @ -None Did you discuss the management of the patient with other professionals (professionals i.e. , [facility], [employer], lab, RT, psych nurse, social media sr strategy manager, director of dietary, teacher, public information officer, keycase assembler)? Give summary @ -No Was smoking cessation discussed for >3mins.? @ -No Was critical care preformed (if so, how long)? @ -No Were there social determinants of health that impacted care today? How? (Homelessness, low income, unemployed, alcoholism, drug addiction, transportation, low edu. Level, literacy, decrease access to med. care, [facility]ci, rehab)? @ -No Was there de-escalation of care discussed even if they declined (Discuss DNR or withdrawal of care, Hospice)? DNR status @ -No What co-morbidities impacted this encounter? (DM, HTN, Smoking, COPD, CAD, Cancer, CVA, ARF, Chemo, Hep., AIDS, mental health diagnosis, sleep apnea, morbid obesity)? @ -None Was patient admitted / discharged? Hospital course, mention meds given and route, prescriptions, significant lab abnormalities, going to OR and other pertinent info. @ -Discharge 28-year-old male presenting to the ED complaining of cough congestion for the past week. Chest x-ray revealed no evidence of pneumonia or other acute process. Serology panel reviewed unremarkable. Symptoms likely viral in nature. Discharged home in stable condition. Advise close follow-up with PCP. Advised washing sheets and other affected material with hot water. Undiagnosed new problem with uncertain prognosis? @ -No Drug Therapy requiring intensive monitoring for toxicity (Heparin, Nitro, Insulin, Cardizem)? @ -No Were any procedures done? @ -No Diagnosis/symptom? @ -Viral URI Acute, or Chronic, or Acute on Chronic? @ -Acute Uncomplicated (without systemic symptoms) or Complicated (systemic symptoms)? @ -Uncomplicated Side effects of treatment? @ -No Exacerbation, Progression, or Severe Exacerbation? @ -No Poses a threat to life or bodily function? How? (Chest pain, [place], [place], pneumonia, PE, COPD, DKA, ARF, appy, cholecystitis, CVA, Diverticulitis, Homicidal, Suicidal, threat to staff... and all critical care pts) @ -No - Lab Data Lab Results 09/13/23 Range/Units 22:39 Influenza Type A (PCR) Not Detected (Not Detectd) Influenza Type B (PCR) Not Detected (Not Detectd) RSV (PCR) Not Detected (Not Detectd) SARS-CoV-2 (PCR) Not Detected (Not Detectd) Disposition Clinical Impression: Viral URI Disposition: HOME SELF-CARE Condition: Good Instructions (If sedation given, give patient instructions): Upper Respiratory Infection (ED) Additional Instructions: Please return to the Emergency Department if symptoms worsen or any other concerns. Please follow-up with your PCP. Use [id number] medications as needed for symptoms. Is patient prescribed a controlled substance at d/c from ED?: No Referrals: Starr Porras MD [Primary Care Provider] - 1-2 days Time of Disposition: 02:03
--- NOTE | 2023-09-14 01:28 | XR ---
EXAM: XR Chest, 1 View CLINICAL HISTORY: ITS.REASON XR Reason: r/o pna TECHNIQUE: Frontal view of the chest. COMPARISON: No relevant prior studies available. FINDINGS: Lungs: No consolidation or mass. Pleural space: No acute findings Heart: No cardiomegaly. Bones/joints: No acute findings. IMPRESSION: No acute cardiopulmonary process.
[2023-09-14 02:49] VITALS: BP 119/79; PULSE 75; RESP 18
== END 2023-09-14 02:57 | disposition home or self-care (01) ==
LOC: EC 20:25
DX: J06.9 Acute upper respiratory infection, unspecified (principal); Z91.030 Bee allergy status; Z88.5 Allergy status to narcotic agent; Z88.8 Allergy status to other drugs, medicaments and biological substances; Z91.040 Latex allergy status
CPT/HCPCS: 71045; 87636; 99283

== ENCOUNTER 2024-04-14 09:28 | Emergency (ER) | payer OTHER ==
[2024-04-14 09:33] VITALS: RESP 16
--- NOTE | 2024-04-14 10:04 | ED ---
General Adult HPI - General Chief complaint: Skin/Abscess/Foreign Body Stated complaint: bite on left forearm Time Seen by Provider: 04/14/24 09:45 Source: patient, RN notes reviewed Mode of arrival: ambulatory Limitations: no limitations - History of Present Illness Initial comments: Patient is a 29-year-old male present to the emergency department with concern for bug bite to his left forearm. Incident occurred yesterday. Patient is unclear what may have bit him. Patient did notice redness and swelling that has improved however now has noticed a lesion in the central part of it. No history of similar symptoms previously. Tetanus immunization is up-to-date. No fever. Discomfort is mild. - Related Data Previous Rx's Medication Instructions Recorded Amoxic-Pot Clav 875-125Mg 1 tab PO Q12HR #14 tab 10/10/22 [Augmentin 875-125] Cephalexin [Keflex] 500 mg PO TID #21 cap 04/14/24 Allergies Allergy/AdvReac Type Severity Reaction Status Date / Time bee pollen Allergy Unknown Verified 04/14/24 09:33 fluoxetine Allergy Anaphylaxis Verified 04/14/24 09:33 hydrocodone [From [place]] Allergy SEE COMMENT Verified 04/14/24 09:33 lamotrigine [From Lamictal] Allergy Anaphylaxis Verified 04/14/24 09:33 latex Allergy Rash/Hives Verified 04/14/24 09:33 Review of Systems ROS Statement: Those systems with pertinent positive or pertinent negative responses have been documented in the HPI. ROS Other: All systems not noted in ROS Statement are negative. Constitutional: Denies: fever Eyes: Denies: eye pain ENT: Denies: ear pain Gastrointestinal: Denies: abdominal pain Musculoskeletal: Denies: back pain Skin: Reports: as per HPI Past Medical History Past Medical History: Asthma, Chest Pain / Angina, Pneumonia Additional Past Medical History / Comment(s): Hx heart palpatations, hx chest pain 7 yrs ago. Hx numerous episodes of otitis media, hx pneumonia. History of Any Multi-Drug Resistant Organisms: None Reported Past Surgical History: Ear Surgery, Hernia Repair Additional Past Surgical History / Comment(s): Tubes in ears. ingunial hernia repair in jan 2017,2018 Past Anesthesia/Blood Transfusion Reactions: No Reported Reaction Past Psychological History: Bipolar, Depression Smoking Status: Never smoker Past Alcohol Use History: Occasional Past Drug Use History: None Reported - Past Family History Mother Family Medical History: No Reported History General Exam Limitations: no limitations General appearance: alert, in no apparent distress Head exam: Present: normocephalic Eye exam: Present: normal appearance Respiratory exam: Present: normal lung sounds bilaterally Cardiovascular Exam: Present: regular rate, normal rhythm Extremities exam: Present: other (Left forearm with mild erythema approximately 2 x 3 cm. Adjacent to this there is an area of increased erythema and pustular formation, approximately 1/2 cm) Neurological exam: Present: alert Psychiatric exam: Present: normal affect, normal mood Skin exam: Present: other (See above) Course Vital Signs 04/14/24 09:31 Temperature 97.6 F Pulse Rate 75 Respiratory 16 Rate Blood Pressure 128/83 O2 Sat by Pulse 99 Oximetry Medical Decision Making - Medical Decision Making Was pt. sent in by a medical professional or institution (, PA, TRAVEL REGISTERED NURSE ONCOLOGY, urgent care, hospital, or alf...) When possible be specific @ -No Did you speak to anyone other than the patient for history (EMS, parent, family, police, friend...)? What history was obtained from this source @ -No Did you review nursing and triage notes (agree or disagree)? Why? @ -I reviewed and agree with nursing and triage notes Were old charts reviewed (outside hosp., previous admission, EMS record, old EKG, old radiological studies, urgent care reports/EKG's, alf records)? Report findings @ -No old charts were reviewed Differential Diagnosis (chest pain, altered mental status, abdominal pain women, abdominal pain men, vaginal bleeding, weakness, fever, dyspnea, syncope, headache, dizziness, GI bleed, back pain, seizure, CVA, palpatations, mental health, musculoskeletal)? @ -Differential Fever: Pneumonia, viral URI, endocarditis, myocarditis, pericarditis, otitis, sinusitis, peritonsillar Abscess, retropharyngeal Abscess, epiglottitis, peritonitis, appendicitis, Allison cystitis, diverticulitis, hepatitis, colitis, UTI, PID, TOA, pyelonephritis, prostatitis, epididymitis, meningitis, encephalitis, pulmonary embolism, CVA, thyroid storm, pancreatitis, adrenal crisis, cavernous sinus thrombosis, this is not meant to be an all-inclusive list. EKG interpreted by me (3pts min.). @ -As above X-rays interpreted by me (1pt min.). @ -None done CT interpreted by me (1pt min.). @ -None done U/S interpreted by me (1pt. min.). @ -None done What testing was considered but not performed or refused? (CT, X-rays, U/S, labs)? Why? @ -None What meds were considered but not given or refused? Why? @ -None Did you discuss the management of the patient with other professionals (professionals i.e. , PA, TRAVEL REGISTERED NURSE ONCOLOGY, lab, RT, psych nurse, social worker psychiatric, anesthesia tech, teacher, chief wellness officer, case management director)? Give summary @ -No Was smoking cessation discussed for >3mins.? @ -No Was critical care preformed (if so, how long)? @ -No Were there social determinants of health that impacted care today? How? (Homelessness, low income, unemployed, alcoholism, drug addiction, transportation, low edu. Level, literacy, decrease access to med. care, half-way, rehab)? @ -No Was there de-escalation of care discussed even if they declined (Discuss DNR or withdrawal of care, Hospice)? DNR status @ -No What co-morbidities impacted this encounter? (DM, HTN, Smoking, COPD, CAD, Cancer, CVA, ARF, Chemo, Hep., AIDS, mental health diagnosis, sleep apnea, morbid obesity)? @ -None Was patient admitted / discharged? Hospital course, mention meds given and route, prescriptions, significant lab abnormalities, going to OR and other pertinent info. @ -Patient presents with redness and swelling and lesion to the left arm with concern of bug bite. Patient will be started on antibiotics and discharged for follow-up. Undiagnosed new problem with uncertain prognosis? @ -No Drug Therapy requiring intensive monitoring for toxicity (Heparin, Nitro, Insulin, Cardizem)? @ -No Were any procedures done? @ -Pustular like lesion opened after being cleansed with Betadine. Open with 25-gauge needle. No significant purulent drainage. No complications. Verbal informed consent given Diagnosis/symptom? @ -Cellulitis left arm Acute, or Chronic, or Acute on Chronic? @ -Acute Uncomplicated (without systemic symptoms) or Complicated (systemic symptoms)? @ -Default Side effects of treatment? @ -No Exacerbation, Progression, or Severe Exacerbation? @ -No Poses a threat to life or bodily function? How? (Chest pain, [place], [place], pneumonia, PE, COPD, DKA, ARF, appy, cholecystitis, CVA, Diverticulitis, Homicidal, Suicidal, threat to staff... and all critical care pts) @ -No Disposition Clinical Impression: Left arm cellulitis Disposition: HOME SELF-CARE Condition: Stable Instructions (If sedation given, give patient instructions): Cellulitis (ED) Additional Instructions: Prescription sent to pharmacy. Please follow-up with primary care physician in the next couple of days for recheck. [id number] antibiotic ointment. Return for fever, increased redness or swelling, increased pain, worsening symptoms or other concerns. Prescriptions: Cephalexin [Keflex] 500 mg PO TID #21 cap Is patient prescribed a controlled substance at d/c from ED?: No Referrals: Starr Porras MD [Primary Care Provider] - 1-2 days Time of Disposition: 10:04
[2024-04-14 10:40] VITALS: BP 125/81; PULSE 72; TEMP 97.7
== END 2024-04-14 10:20 | disposition home or self-care (01) ==
LOC: EC 09:28
DX: L03.114 Cellulitis of left upper limb (principal); Z91.030 Bee allergy status; Z88.8 Allergy status to other drugs, medicaments and biological substances; Z88.5 Allergy status to narcotic agent; Z91.040 Latex allergy status
CPT/HCPCS: 99282